=== PATIENT | male | born 1945 | race Caucasian/White ===

== ENCOUNTER 2018-02-15 08:11 | Observation (INO) | payer MEDICARE, OTHER, SELFPAY ==
[2018-02-15] VITALS (14 sets, daily range): BP systolic 138–183; BP diastolic 61–77; PULSE 53–69; RESP 15–20; TEMP 36.2–36.8; O2SAT 95–100; BMI 28.8; BMI 28.5; BMI 28.6
--- NOTE | 2018-02-15 08:22 | EKG12_ITS ---
Test Reason : CP Blood Pressure : / mmHG Vent. Rate : 064 BPM Atrial Rate : 064 BPM P-R Int : 224 ms QRS Dur : 122 ms QT Int : 396 ms P-R-T Axes : 001 -61 -10 degrees QTc Int : 408 ms Sinus rhythm with 1st degree A-V block Left axis deviation Left bundle branch block Abnormal ECG Confirmed by JOSTIN COLEMAN, REBECA ([id number]), acquisition editor ENOCH WALLER ([id number]) on 02/21/2018 2:33:03 PM Referred By: IMAN Confirmed By:REBECA FRANKEL MD
--- NOTE | 2018-02-15 08:36 | ED.DCSUM_ITS ---
- ER Visit Summary Date of Service: 02/15/18 Chief Complaint: Chest pain History of Present Illness: The patient is a [address] Patricio. He reports that he has chest pain that began 4 days ago while he was going faster than usual on the treadmill. States that it resolved approximately 2 minutes of rest. This was associated with nausea and shortness of breath. States that worst the pain was 5 out of 10 severity and that he is pain-free currently. Patient reports that since that time he is having pain multiple times per day. This does not seem to be related to exertion. It is relieved by nothing. States that he continues to feel nauseated and short of breath with these episodes. He also feels lightheaded and clammy. He also complains of generalized weakness. Patient reports that he had a heart catheterization approximately 10 years ago that did not require stents. He states that he had a stress test approximately 3 years ago. Physical Examination: Vitals: Stable. Afebrile. General: Well-nourished and well-developed. Head: Normocephalic atraumatic. Neck: Supple, no lymphadenopathy. No JVD. Nontender. Cardiovascular: Regular rate and rhythm. No murmurs. Respiratory: No respiratory distress. Clear to auscultation bilaterally. Abdominal: Soft, nontender, nondistended, normal bowel sounds. No guarding, rebound, or peritoneal signs. Back: Nontender. Extremities: Nontender, no edema. Skin: Normal color, no rash. Neurologic: Alert and oriented ?3. Cranial nerves II through XII are intact. Normal strength and sensation. Psych: Normal affect. Test Results: EKG is sinus at 64 with a first-degree AV block and a left bundle branch block. This is unchanged since June 10, 2017. CBC is normal. Chem-7 is remarkable for a glucose of 110. Troponin is negative. CTA chest shows no PE or dissection. Repeat EKG shows T-wave inversions in leads V5 and V6 that are a change from his prior EKG here. Emergency Department Course and Treatment: Patient had an IV placed. He was given aspirin p.o. and a liter of normal saline. He is resting comfortably. He has had no chest pain while here. Treatment Plan: The patient will be discussed with the hospitalist and admitted for further evaluation and treatment. Disposition: Admitted in stable condition. Impression: 1. Chest pain. 2. JOYCE score of 3. This note was generated with [employer] dictation software. It may contain incorrect words, spelling, and punctuation that were not noted in review of the chart prior to signing ED Disposition - Plan for ED Patient: Chief Complaint: Chest Pain Referrals: Reilly Yan MD [Primary Care Provider] -
--- NOTE | 2018-02-15 08:36 | EKG12_ITS ---
Test Reason : REPEAT CP Blood Pressure : / mmHG Vent. Rate : 056 BPM Atrial Rate : 056 BPM P-R Int : 224 ms QRS Dur : 120 ms QT Int : 426 ms P-R-T Axes : 003 -59 -30 degrees QTc Int : 411 ms Sinus bradycardia with 1st degree A-V block Left axis deviation Incomplete left bundle branch block T wave abnormality, consider lateral ischemia Abnormal ECG Confirmed by JOSTIN COLEMAN, REBECA ([id number]), web editor ENOCH WALLER ([id number]) on 02/21/2018 2:33:21 PM Referred By: IMAN Confirmed By:REBECA FRANKEL MD
--- NOTE | 2018-02-15 08:40 | RAD_ITS ---
STUDY: X-RAY CHEST REASON FOR EXAM: Male, 72 years old. Chest pain. TECHNIQUE: Single AP portable view of the chest. COMPARISON: Comparison is made with prior study dated September 08, 2013. FINDINGS: EKG electrodes are seen. Mild increased markings at the lung bases suggest some mild bibasilar atelectasis. There is no demonstrated pleural abnormality. There is mild cardiac enlargement. Normal mediastinum and jonny. Normal visualized pulmonary arteries. Normal visualized aortic arch and descending thoracic aorta. There are diffuse degenerative changes of the visualized thoracic spine. Normal visualized ribs, clavicles, and shoulders. There is no demonstrated abnormality of the visualized soft tissue structures of the upper abdomen. RAD/Chest 1 View (Portable) IMPRESSION: Mild increased markings at the lung bases suggest some mild bibasilar atelectasis. Electronically Signed: Guru Liu MD at 9:01 EDT Tel [phone], Service support ,
[2018-02-15] MEDS: Aspirin 81 MG TAB.CHEW 324 MG PO (08:46)
[2018-02-15] MEDS: 0.9% Normal Saline 1,000 ML 1000 ML IV (08:46)
[2018-02-15 08:49] LABS: Absolute Lymphocyte Count 1.23 X10^3/ul (0.83-4.51); Absolute Neutrophil Count 3.1 X10^3/uL (2.0-7.7); Basophil# 0.02 X10^3/uL; Basophil% 0.4 % (0-1); Eosinophil# 0.15 X10^3/uL; Hematocrit 44.8 % (40-54); Lymphocyte # 1.23 X10^3/ul (4.0); Lymphocyte % 24.6 % (19-41); Mean Corp Hgb Conc 33.5 g/gl (32-36); Mean Corpuscular Hgb 30.9 pg (27.0-32.0); Mean Corpuscular Volume 92.4 fL (80-94); Mean Platelet Vol. 10.4 fl (6.2-12.0); Monocyte# 0.49 X10^3/uL; Monocyte% 9.8 % (0-10); Neutrophil % 62.2 % (47-70); POSITIVE COUNT NO; POSITIVE DIFFERENTIAL NO; POSITIVE MORPHOLOGY NO; Platelet Count 164 K/mm3 (150-450); RBC Distribution Width CV 13.3 % (11.6-14.6); RBC Distribution Width SD 44.3 fl (35.1-43.9); Red Blood Count 4.85 M/mm3 (4.6-6.2)
[2018-02-15 08:57] LABS: Anion Gap 6 (5-15); BUN 12 mg/dL (7-18); BUN/Creat Ratio 10.6 RATIO (10-20); Chloride 106 mmol/L (98-107); Creatinine, Serum 1.13 mg/dL (0.70-1.30); EST Glomerular Filtration Rate 68 mL/min (>60); Est Glom Filt Rate - Afr Amer 82 mL/min (>60); Estimated Creatinine Clearance 58.01 ml/min; Glucose 110 mg/dL (74-106); Potassium 3.7 mmol/L (3.5-5.1); Sodium Level 141 mmol/L (136-145)
--- NOTE | 2018-02-15 09:00 | CT_ITS ---
STUDY: CTA CHEST REASON FOR EXAM: Male, 72 years old. Chest pain. Left arm pain. Nausea. Hypertension. RADIATION DOSAGE (If Supplied By Facility): CTDIvol = ( 15.93 ) mGy, DLP = ( 639.42 ) mGycm TECHNIQUE: The examination was performed with the intravenous administration of 75 ml of Isovue 370 contrast material. Post-processing of the angiographic images was performed, with multiplanar reformation and 3D reconstruction. Individualized dose optimization techniques were used for this CT. COMPARISON: Comparison is made with prior chest radiograph done earlier today. FINDINGS: Normal enhancement of the main pulmonary artery and right and left pulmonary arteries. Normal enhancement of the bilateral peripheral pulmonary arteries. There is no demonstrated pulmonary embolism. There is atherosclerotic calcification of the aortic arch with tortuosity. There is no evidence of dissection. There is no demonstrated aortic dissection. Normal heart and pericardium. Normal mediastinum. Normal hilar regions. Normal visualized trachea and bronchi. The lungs are well expanded. Mild degree of increased markings at the lung bases suggestive of scarring and/or atelectasis. No focal infiltrate is seen. Normal pleura. Normal chest wall structures. There are degenerative changes of thoracic spine. There is a 1 cm hypodensity in the inferior aspect of the right lobe of the liver suggestive of a small cyst. This is also evidence of a similar appearing hypodensity in the medial aspect of the right lobe of the liver measuring 2.2 sides by 1.6 cm suggestive of a hepatic cyst. There is calcification of the splenic artery. Small hiatal hernia. CT/CTA Chest W/WO Contrast IMPRESSION: There is no evidence of aortic dissection. Findings suggestive mild scarring at the lung bases. Hepatic cysts. Electronically Signed: Guru Liu MD at 10:06 EDT Tel [phone], Service support ,
--- NOTE | 2018-02-15 10:37 | NURSING ---
116 OBS CP MAYANK
--- NOTE | 2018-02-15 13:40 | HP.PCM_ITS ---
Problem List (1) Hyperlipidemia Status: Chronic (2) GERD (gastroesophageal reflux disease) Status: Chronic (3) History of stroke Status: Chronic (4) Hypertension Status: Chronic History of Present Illness Date of Admission: 02/15/18 Chief Complaint: Chest pain The patient is a 72 year old M with past medical history of essential hypertension, GERD, dyslipidemia and diabetes type 2 who presented to the emergency room to be evaluated for chest pain. He reports working on his treadmill about 4 days ago and when he went faster he did experience chest pain associated with nausea and shortness of breath as well as dizziness and he stopped. Ever since he has been having intermittent chest pain which he rated as 5 out of 10 associated with dizziness and shortness of breath. He came to the emergency room to be evaluated. His workup thus far is unremarkable we are placing him in the hospital for further management. Past Medical History Past Medical History (Chronic Problems): Chronic Problems (Last Updated 01/08/18 @ 12:46 by Lolis Salas) Hyperlipidemia (Chronic) GERD (gastroesophageal reflux disease) (Chronic) History of stroke (Chronic) Hypertension (Chronic) Allergies No Known Allergies Allergy (Verified 02/15/18 08:11) Home Medications: Ambulatory Orders Medication Instructions Recorded Aspirin [Aspirin, Baby] 81 mg PO DAILY@0800 09/08/13 Atorvastatin Calcium [Lipitor] 40 mg PO QHS 09/08/13 Fluticasone 0.05% [Flonase Nasal 1 spray NASAL PRN PRN 09/08/13 [place]] Loratadine [Claritin] 10 mg PO DAILY PRN 09/08/13 Metoprolol Tartrate [Lopressor 25 mg PO BID 09/08/13 (beta leilani)] [place]-3 Fatty Acids/Fish Oil [Fish 2 ea PO DAILY 09/08/13 Oil 1,000 mg Capsule] Omeprazole [Prilosec] 20 mg PO DAILY 09/08/13 ascorbic acid (vitamin C) 500 mg 500 mg PO DAILY 01/08/18 capsule metformin ER 500 mg 500 mg PO DAILY 90 Days #90 01/08/18 tablet,extended release 24 hr Albuterol Sulfate [Ventolin Hfa] 2 puff INHALATION Q6H PRN 02/15/18 Cholecalciferol (Vitamin D3) 1,000 unit PO QHS 02/15/18 [Vitamin D3] Sildenafil Citrate 100 mg PRN 02/15/18 Surgical History: - - Heart cath Psychiatric History: No pertinent psych hx Smoking Status: Never smoker Review of Systems Comment: All Systems were reviewed with pertinent positives mentioned in the HPI above. VTE Information - Inpt Only VTE Present on Admission: No VTE Mechan Device Prophylaxis: SCD's VTE Pharm Prophylaxis ordered?: Yes - Physical Exam General: Alert, Oriented x3 HEENT: Atraumatic Neck: Supple, No JVD Lungs: Clear to auscultation, No wheeze, No rales Cardiovascular: Regular rate, Regular Rhythm Abdomen: Bowel Sounds Present, Non-Distended Extremities: No cyanosis Musculoskeletal: No Tenderness to Palpation of Joints or Extremities, No Muscle Wasting Neurological: Cranial nerves II-XII grossly intact, Motor Exam 5/5 strength throughout Vital Signs Temp Pulse Resp BP Pulse Ox 98.1 F 55 L 16 167/63 H 99 02/15/18 11:50 02/15/18 11:54 02/15/18 11:50 02/15/18 11:50 02/15/18 11:50 Oxygen Flow Rate (L/min) 2 Oxygen Delivery Method Nasal Cannula Weight: 85.3 kg Body Mass Index (BMI) 28.5 Laboratory Tests Past 24 Hrs 02/15/18 13:00 Troponin I Pending Assessment/Plan 1. Chest pain; we will obtain serial cardiac enzymes and EKGs to rule out acute coronary syndrome, immune negative cardiac enzymes, he will be scheduled for a stress test in the morning . 2. Dyslipidemia; will continue on his statin. 3. DM Type II; we will hold off on metformin and place him on regular insulin sliding scale. 4. SCDs and early ambulation for DVT prophylaxis. Code Visit OBSV E&M: 29826 Initial observation care L2
[2018-02-15] MEDS: Aspirin 81 MG TAB.CHEW PO (14:31)
[2018-02-15] MEDS: Ascorbic Acid 500 MG Tablet PO (14:31)
[2018-02-15] MEDS: Metoprolol Tartrate 25 MG Tablet PO ×2 (14:31→22:26)
[2018-02-15] MEDS: Pantoprazole Sodium 20 MG Tablet PO (14:32)
[2018-02-15] MEDS: CLARIFY ORDER NOTE (14:33)
--- NOTE | 2018-02-15 14:58 | CHAPLAIN ---
Type of Pastoral Visit _x__ Initial Visit ___ Follow-up Visit ___ On-call Visit ___ General Patient Visit ___ Spiritual Assessment ___ Family Conference ___ Bereavement ___ Rapid Response ___ Code Blue ___ Other (describe below) Pastoral Care Referral From _x__ Patient ___ Family ___ Nurse ___ Physician ___ Rn On Site ___ Hand Tufter ___ Other (describe below) Sacrament/Intervention _x__ Active listening ___ Anointing ___ Congregation ___ Bereavement ___ Communion ___ Mindi exploration ___ ___ Life review _x__ Prayer ___ Reconciliation ___ Sacrament of Sick _x__ Supportive presence ___ Wedding ___ Other (describe below) Pastoral Comments
[2018-02-15] MEDS: Atorvastatin Calcium 40 MG Tablet PO (22:30)
[2018-02-16 03:09] VITALS: PULSE 60
--- NOTE | 2018-02-16 04:00 | EKG12_ITS ---
Test Reason : INVERTED T WAVE Blood Pressure : / mmHG Vent. Rate : 060 BPM Atrial Rate : 060 BPM P-R Int : 216 ms QRS Dur : 112 ms QT Int : 408 ms P-R-T Axes : 038 -63 -21 degrees QTc Int : 408 ms Sinus rhythm with 1st degree A-V block Left axis deviation Incomplete left bundle branch block Nonspecific ST and T wave abnormality Abnormal ECG When compared with ECG of 16-FEB-2018 05:05, MANUAL COMPARISON REQUIRED, DATA IS UNCONFIRMED Confirmed by JOSTIN COLEMAN, REBECA ([id number]), film editor supervisor ENOCH WALLER ([id number]) on 02/22/2018 9:18:14 AM Referred By: MAYANK Confirmed By:REBECA FRANKEL MD
[2018-02-16 04:03] LABS: Hematocrit 39.9 % (40-54); Hemoglobin 13.7 g/dl (13.0-16.5); Mean Corp Hgb Conc 34.3 g/gl (32-36); Mean Corpuscular Hgb 31.4 pg (27.0-32.0); Mean Corpuscular Volume 91.5 fL (80-94); Mean Platelet Vol. 10.6 fl (6.2-12.0); Platelet Count 164 K/mm3 (150-450); RBC Distribution Width CV 13.1 % (11.6-14.6); RBC Distribution Width SD 42.6 fl (35.1-43.9); Red Blood Count 4.36 M/mm3 (4.6-6.2); White Blood Count 6.1 K/mm3 (4.4-11.0)
[2018-02-16 04:05] LABS: International Normalized Ratio 1.2; Prothrombin Time (Protime)PT. 14.9 SECONDS (11.7-14.9)
[2018-02-16 04:06] LABS: Partial Thromboplast Time 27.8 Seconds (24.1-36.2)
[2018-02-16 04:08] LABS: Scan Indicated on CBC? Y/N NO
[2018-02-16 04:12] LABS: Albumin, Serum 2.9 g/dL (3.2-5.0); BUN 18 mg/dL (7-18); Creatinine, Serum 1.06 mg/dL (0.70-1.30); EST Glomerular Filtration Rate 73 mL/min (>60); Est Glom Filt Rate - Afr Amer 89 mL/min (>60); Estimated Creatinine Clearance 61.84 ml/min; Glucose 92 mg/dL (74-106); Protein, Total 5.9 g/dL (6.4-8.2)
[2018-02-16 04:13] LABS: AST(SGOT) 23 U/L (15-37); Alanine Aminotransfer ALT/SGPT 31 U/L (16-61); Alkaline Phosphatase 77 U/L (45-117); Anion Gap 9 (5-15); Calcium,Total 8.3 mg/dL (8.5-10.1); Chloride 109 mmol/L (98-107); Cholesterol 109 mg/dL (200); High Density Lipoprotein 44 mg/dL; Potassium 4.1 mmol/L (3.5-5.1); Sodium Level 143 mmol/L (136-145); Triglycerides 116 mg/dL; Very Low Density Lipoprotein 23 mg/dL (5-40)
[2018-02-16 04:23] VITALS: BP 142/64; PULSE 62; RESP 18; TEMP 36.9; O2SAT 93
[2018-02-16] MEDS: Aspirin 81 MG TAB.CHEW PO (06:03)
[2018-02-16 08:21] VITALS: PULSE 62
[2018-02-16] MEDS: Ascorbic Acid 500 MG Tablet PO (08:43)
[2018-02-16 08:44] VITALS: PULSE 62
[2018-02-16] MEDS: Metoprolol Tartrate 25 MG Tablet PO (08:44)
[2018-02-16] MEDS: Pantoprazole Sodium 20 MG Tablet PO (08:44)
[2018-02-16 08:45] VITALS: BP 162/66; PULSE 62; RESP 12; TEMP 36.6; O2SAT 96
--- NOTE | 2018-02-16 08:52 | EKG12_ITS ---
Test Reason : MORNING EKG Blood Pressure : / mmHG Vent. Rate : 061 BPM Atrial Rate : 061 BPM P-R Int : 230 ms QRS Dur : 108 ms QT Int : 420 ms P-R-T Axes : 027 -66 -17 degrees QTc Int : 422 ms Sinus rhythm with 1st degree A-V block Left axis deviation Septal infarct , age undetermined Abnormal ECG When compared with ECG of 15-FEB-2018 09:09, MANUAL COMPARISON REQUIRED, DATA IS UNCONFIRMED Confirmed by JOSTNI COLEMAN, REBECA ([id number]), material expeditor ENOCH WALLER ([id number]) on 02/22/2018 9:19:40 AM Referred By: MAYANK Confirmed By:REBECA FRANKEL MD
--- NOTE | 2018-02-16 08:59 | STRESSREP ---
Stress Test Report Pharmacologic myocardial perfusion stress test. 72-year-old man with a history of chest pain. Medications metoprolol Protonix Lipitor. Stress protocol: Resting EKG demonstrates sinus rhythm with a rate of 60 bpm normal intervals are noted. Resting blood pressure is 148/78 mmHg. 0.4 mg of regadenoson was infused per usual protocol followed by rapid intravenous saline flush injection. Continuous EKG monitoring was performed. The maximum heart rate was 102 bpm which was 68% of maximum predicted heart rate the maximum workload attained was 1 metabolic equivalent. At rest there were no ST or T-wave changes noted suggest abnormal flow reserve at peak infusion no ST or T-wave changes were noted to suggest abnormal flow reserve. Myocardial perfusion protocol. 11.9 mCi of technetium 99m sestamibi was injected at rest. 0.4 mg of regadenoson was infused per usual protocol. Peak infusion 35.0 mCi of technetium 99m sestamibi was injected. Stress images were obtained stress and rest images were reconstructed and compared in the short axis vertical long and horizontal long axis. Gated images were also obtained. Perfusion SPECT analysis: Review of the stress images demonstrate normal uptake of tracer noted in the septum anterior wall and lateral wall. There is a perfusion defect noted involving the inferior wall on the stress and resting images. This appears to be at the same extent. Mild apical thinning is also noted. There is some GI attenuation artifact also present. Gated SPECT analysis. The gated ejection fraction is noted to be 67%. Conclusion: Pharmacologic myocardial perfusion stress test with no evidence of ischemia. GI attenuation or previous inferior infarct cannot be completely excluded. Preserved ejection fraction.
--- NOTE | 2018-02-16 09:13 | PCM.DC ---
- Discharge Diagnoses Current Active Problems: chest pain, non cardiac You will use the following diet at home:: Regular Discharge Activity: Return to Normal Activity Allergies/Adverse Reactions: Allergies No Known Allergies Allergy (Verified 02/15/18 08:11) Medications to take at Discharge Aspirin [Aspirin, Baby] 81 mg PO DAILY@0800 09/08/13 Atorvastatin Calcium [Lipitor] 40 mg PO QHS 09/08/13 Fluticasone 0.05% [Flonase Nasal [place]] 1 spray NASAL DAILY PRN PRN 09/08/13 Loratadine [Claritin] 10 mg PO DAILY PRN 09/08/13 Metoprolol Tartrate [Lopressor (beta leilani)] 25 mg PO BID 09/08/13 [place]-3 Fatty Acids/Fish Oil [Fish Oil 1,000 mg Capsule] 2 ea PO DAILY 09/08/13 Omeprazole [Prilosec] 20 mg PO DAILY 09/08/13 ascorbic acid (vitamin C) 500 mg capsule 500 mg PO DAILY 01/08/18 metformin ER 500 mg tablet,extended release 24 hr 500 mg PO DAILY 90 Days #90 01/08/18 Albuterol Sulfate [Ventolin Hfa] 2 puff INHALATION Q6H PRN 02/15/18 Cholecalciferol (Vitamin D3) [Vitamin D3] 1,000 unit PO QHS 02/15/18 Sildenafil Citrate 100 mg PRN 02/15/18 Primary Care Physician: Reilly Yan MD [Primary Care Provider] - Proposed Discharge Date: 02/16/18
--- NOTE | 2018-02-16 09:14 | PCM.DC.SUM ---
Discharge Date and Diagnosis Date of Admission: 02/15/18 Date of Discharge: 02/16/18 - Secondary Discharge Diagnosis Chronic Problems (Last Updated 01/08/18 @ 12:46 by Lolis Salas) Hyperlipidemia (Chronic) GERD (gastroesophageal reflux disease) (Chronic) History of stroke (Chronic) Hypertension (Chronic) Hospital Course and Treatment Imaging Results: 02/16/18 05:55 Nuclear Stress Test - Chemical [NM] AM (NON MEDS) Summary of Care Provided: The patient is a 72 year old M with past medical history of essential hypertension, GERD, dyslipidemia and diabetes type 2 who presented to the emergency room to be evaluated for chest pain. He reports working on his treadmill about 4 days ago and when he went faster he did experience chest pain associated with nausea and shortness of breath as well as dizziness and he stopped. Ever since he has been having intermittent chest pain which he rated as 5 out of 10 associated with dizziness and shortness of breath. He came to the emergency room to be evaluated. She was placed in the PCU and rule out acute coronary syndrome with negative cardiac enzymes. He underwent a stress test that was negative for ischemia. Blood pressure remains slightly elevated and lisinopril was added at 5 mg to optimize control. He was discharged home in a stable condition. Discharge Diet: No Restrictions Discharge Activity: Return to Normal Activity Home Medications: Medications to take at Discharge Aspirin [Aspirin, Baby] 81 mg PO DAILY@0800 09/08/13 Atorvastatin Calcium [Lipitor] 40 mg PO QHS 09/08/13 Fluticasone 0.05% [Flonase Nasal [place]] 1 spray NASAL DAILY PRN PRN 09/08/13 Loratadine [Claritin] 10 mg PO DAILY PRN 09/08/13 Metoprolol Tartrate [Lopressor (beta leilani)] 25 mg PO BID 09/08/13 [place]-3 Fatty Acids/Fish Oil [Fish Oil 1,000 mg Capsule] 2 ea PO DAILY 09/08/13 Omeprazole [Prilosec] 20 mg PO DAILY 09/08/13 ascorbic acid (vitamin C) 500 mg capsule 500 mg PO DAILY 01/08/18 metformin ER 500 mg tablet,extended release 24 hr 500 mg PO DAILY 90 Days #90 01/08/18 Albuterol Sulfate [Ventolin Hfa] 2 puff INHALATION Q6H PRN 02/15/18 Cholecalciferol (Vitamin D3) [Vitamin D3] 1,000 unit PO QHS 02/15/18 Sildenafil Citrate 100 mg PRN 02/15/18 Primary Care Physician: Reilly Yan MD [Primary Care Provider] - Medical Necessity - Tobacco Use Smoking Status: Never smoker Meaningful Use Info Meaningful Use Diagnoses (Choose all that apply): None applicable Code Visit OBSV E&M: 91688 Observation care discharge
== END 2018-02-16 09:50 | disposition home or self-care (01) ==
LOC: ED 08:44 → PCU 10:46
PROVIDERS: Admitting Provider Internal Medicine; Emergency Provider Emergency Medicine; Family Provider Family Medicine; PCP Family Medicine; Visit Provider Internal Medicine
DX: R07.89 Other chest pain (principal); I10 Essential (primary) hypertension; K21.9 Gastro-esophageal reflux disease without esophagitis; E78.5 Hyperlipidemia, unspecified; Z86.73 Personal history of transient ischemic attack (TIA), and cerebral infarction without residual deficits; E11.9 Type 2 diabetes mellitus without complications; R06.02 Shortness of breath; R11.0 Nausea; R42 Dizziness and giddiness; Z79.899 Other long term (current) drug therapy; Z79.82 Long term (current) use of aspirin
CPT/HCPCS: 36415; 71045; 71275; 78452; 80048; 80053; 80061; 84484; 85025; 85027; 85610; 85730; 93005; 93017; 96360; 96361; 99218; 99285; A9500; Q9967; A4216; G0378; J2785

== ENCOUNTER 2020-01-04 22:03 | Emergency (ER) | payer MEDICARE, OTHER, SELFPAY ==
[2020-01-04 22:05] VITALS: BP 211/84; PULSE 61; RESP 16; TEMP 36.8; O2SAT 100; BMI 28.1
--- NOTE | 2020-01-04 22:37 | EKG12_ITS ---
Test Reason : HYPERTENSION Blood Pressure : / mmHG Vent. Rate : 055 BPM Atrial Rate : 055 BPM P-R Int : 204 ms QRS Dur : 120 ms QT Int : 422 ms P-R-T Axes : 015 -55 -22 degrees QTc Int : 403 ms Sinus bradycardia Left axis deviation Incomplete left bundle branch block Abnormal ECG Confirmed by KYLE COLEMAN, NATY ([id number]), editor department CAROLYN YEBOAH ([id number]) on 01/08/2020 2:22:10 PM Referred By: JOSE Confirmed By:BRITTANI WRIGHT MD
--- NOTE | 2020-01-04 22:37 | ED.VIS.GEN ---
History of Present Illness Chief Complaint: Hypertension Informant: Patient Onset: Days Narrative: Patient presents with hypertension for the past couple of days. He states his is been having trouble with high blood pressure and her pressure was reading high on their home monitor. He decided to use the home monitor to check his own blood pressure to see if the machine was working correctly and his systolic blood pressures been reading over 200 for the past 2 days. He states he was at his doctor's office about 3 weeks ago and had a blood pressure reading of 132 systolic. Patient denies any complaints. He states the only medication change recently was a change of Prilosec to famotidine. He is currently lisinopril 5 mg a day and metoprolol 25 mg twice daily. - Past Medical History (1) GERD (gastroesophageal reflux disease) Status: Chronic (2) History of stroke Status: Chronic (3) Hyperlipidemia Status: Chronic (4) Hypertension Status: Chronic Past Medical History - Allergies and Home Meds Allergies/Adverse Reactions: Allergies No Known Allergies Allergy (Verified 01/04/20 22:06) Primary Care Physician: Reilly Yan MD [Primary Care Provider] - 5-7 Days Prior records reviewed: Yes Surgical History: - - Heart cath Lives: Spouse/ Significant Other Smoking Status: Never smoker Review of Systems General: Denies: Chills, Fever Eyes: Denies: Visual changes - bilaterally ENT: Denies: Bilateral ear pain Cardiovascular: Denies: Chest pain, Palpitations Respiratory: Denies: Dyspnea Gastrointestinal: Denies: Abdominal pain, Nausea, Vomiting, Diarrhea Genitourinary: Denies: Dysuria Musculoskeletal: Denies: Extremity Pain Skin: Denies: Rash Neurological: Denies: Headache Hematologic: Denies: Easy bruising Allergy: Denies: Uticaria Physical Exam Vital Signs/Narrative: Vital Signs Temp Pulse Resp BP Pulse Ox 01/04/20 22:05 98.2 F 61 16 211/84 H 100 Inital Vital Signs reviewed: Yes General: Well nourished, Well developed Head: Normocephalic ENT: Moist mucous membranes Neck: Supple Cardiovascular: Regular rhythm, Bradycardia Respiratory: No distress, CTA bilaterally Abdomen: Soft, Nontender Extremities: Nontender Skin: Normal color, No rash Neurological: Alert, Oriented x3 Psychological: Normal affect Diagnostic/Tx/Re-eval Impressions Chest X-Ray 01/04/20 22:45 IMPRESSION: No acute cardiopulmonary disease perceived. at 2257 Reported and signed by: Jese Chamberlain MD Electronically Signed: Jese Chamberlain MD at 22:56 EST Tel , Service support , 01/04/20 22:45 Chest 1 View (Portable) [RAD] Stat Laboratory Results 01/04/20 01/04/20 01/04/20 23:00 23:00 23:30 WBC 5.7 RBC 4.54 L Hgb 14.1 Hct 41.9 MCV 92.3 MCH 31.1 MCHC 33.7 RDW Std Deviation 42.3 RDW Coeff of [place] 12.5 Plt Count 144 L MPV 10.2 Immature Gran % (Auto) 0.400 Neut % (Auto) 54.9 Lymph % (Auto) 27.0 [place] % (Auto) 13.3 H Eos % (Auto) 3.7 Baso % (Auto) 0.7 Absolute Neuts (auto) 3.1 Absolute Lymphs (auto) 1.53 Nucleated RBC % 0 Sodium 140 Potassium 4.5 Chloride 105 Carbon Dioxide 31.0 Anion Gap 4 L BUN 17 Creatinine 1.21 Estim Creat Clear Calc 52.60 Est GFR (MDRD) Af Amer 76 Est GFR (MDRD) Non-Af 62 BUN/Creatinine Ratio 14.0 Glucose 106 Calcium 9.3 Urine Color Yellow Urine Clarity Clear Urine pH 7.0 Ur Specific [place] 1.005 Urine Protein Negative Urine Glucose (UA) Normal Urine Ketones Negative Urine Occult Blood Negative Urine Nitrite Negative Urine Bilirubin Negative Urine Urobilinogen Normal Ur Leukocyte Esterase Negative Urine RBC 0-5 SEEN Urine WBC 0 SEEN Ur Squamous Epith Cells 0 SEEN Urine Bacteria 0 SEEN Urine Mucus 0 SEEN - EKG Initial EKG Interpretation: Sinus Bradycardia - Sinus bradycardia 55 bpm. Incomplete left bundle branch block noted. - Medical Decision Making Patient was observed on equipment monitor phototypesetting. At the time of my initial evaluation his blood pressure was 169/79. Systolic blood pressures have ranged from this 169 up to 193 while observed in the emergency room. His systolic pressure is currently 177. Patient is on a pretty low dose of lisinopril and metoprolol. Because he is already bradycardic I do not want to change his metoprolol. I encouraged him to double his lisinopril dose to 10 mg a day. He will be given his extra 5 mg here tonight and then tomorrow morning will start new dose. I encouraged him to keep a journal of his blood pressures and time of day that it is checked. He is to follow-up with his doctor next week with this journal to further evaluate if additional changes need to be made. ED Disposition - Plan for ED Patient: Disposition: Home or Assisted Living Diagnosis: Hypertension Instructions: HYPERTENSION, Established Referrals: Reilly Yan MD [Primary Care Provider] - 5-7 Days Additional Instructions: Increase your Lisinopril to 10mg daily (instead of your current 5mg). Keep a journal of your blood pressure readings as discussed and take this to your doctor next week.
--- NOTE | 2020-01-04 22:45 | RAD_ITS ---
HISTORY: patient being seen for high BP EXAM: XR Chest 1 View: COMPARISON: February 15, 2018 FINDINGS: # of images incl. paperwork: 1 Lungs are clear. Heart is not enlarged. Mild thoracic spondylosis. Chronic right shoulder arthritis. Pulmonary vascularity is distinct. No effusions. RAD/Chest 1 View (Portable) IMPRESSION: No acute cardiopulmonary disease perceived. at 2257 Reported and signed by: Jese Chamberlain MD Electronically Signed: Jese Chamberlain MD at 22:56 EST Tel , Service support ,
[2020-01-04 23:06] LABS: Absolute Lymphocyte Count 1.53 X10^3/uL (0.83-4.51); Absolute Neutrophil Count 3.1 X10^3/uL (2.0-7.7); Basophil# 0.04 X10^3/uL; Basophil% 0.7 % (0-1); Eosinophil# 0.21 X10^3/uL; Eosinophils% 3.7 % (0-5); Hematocrit 41.9 % (40-54); Hemoglobin 14.1 g/dL (13.0-16.5); Lymphocyte # 1.53 X10^3/ul (4.0); Mean Corp Hgb Conc 33.7 g/dL (32-36); Mean Corpuscular Hgb 31.1 pg (27.0-32.0); Mean Corpuscular Volume 92.3 fL (80-94); Mean Platelet Vol. 10.2 fl (6.2-12.0); Monocyte# 0.75 X10^3/uL; Monocyte% 13.3 % (0-10); NRBC Flagged by Analyzer 0 % (0-5); Neutrophil # 3.11 X10^3/uL (2.7-7.7); Neutrophil % 54.9 % (47-70); Platelet Count 144 K/mm3 (150-450); RBC Distribution Width CV 12.5 % (11.6-14.6); RBC Distribution Width SD 42.3 fl (35.1-43.9); Red Blood Count 4.54 M/mm3 (4.6-6.2); White Blood Count 5.7 K/mm3 (4.4-11.0)
[2020-01-04 23:30] LABS: Anion Gap 4 (5-15); BUN 17 mg/dL (7-18); Calcium,Total 9.3 mg/dL (8.5-10.1); Chloride 105 mmol/L (98-107); Creatinine, Serum 1.21 mg/dL (0.70-1.30); EST Glomerular Filtration Rate 62 mL/min (>60); Est Glom Filt Rate - Afr Amer 76 mL/min (>60); Glucose 106 mg/dL (74-106); Potassium 4.5 mmol/L (3.5-5.1); Sodium Level 140 mmol/L (136-145)
[2020-01-04 23:39] VITALS: BP 193/63; PULSE 58; RESP 16; O2SAT 98
[2020-01-04 23:40] LABS: Bacteria 0 SEEN /hpf (None Seen); Color, Urine Yellow (Yellow); Glucose, Dipstick Normal (Normal); Ketone-Dipstick Negative (Negative); Leukocyte Esterase-Dipstick Negative /ul (Negative); Mucous, Urine 0 SEEN /hpf (<or=2+); Nitrite-Dipstick Negative (Negative); Occult Blood-Urine Negative /ul (Negative); Protein-Dipstick Negative (Negative); Specific Gravity, Urine 1.005 (1.002-1.030); Squamous Epithelial Cells - UA 0 SEEN /hpf (0-5); Urine Bilirubin Dipstick Negative (Negative); Urine Clarity Clear (Clear); Urine Urobilinogen Normal (Normal); White Blood Cells 0 SEEN /hpf (0-5)
[2020-01-04 23:56] LABS: Red Blood Cells-Urine 0-5 SEEN /hpf (0-5)
[2020-01-05] MEDS: Lisinopril 5 MG Tablet PO (00:30)
[2020-01-05 00:31] VITALS: BP 177/74; PULSE 56; RESP 14; O2SAT 96
== END 2020-01-05 00:33 | disposition home or self-care (01) ==
PROVIDERS: Emergency Provider Emergency Medicine; PCP Family Medicine
DX: I10 Essential (primary) hypertension (principal); I44.7 Left bundle-branch block, unspecified; K21.9 Gastro-esophageal reflux disease without esophagitis; E78.5 Hyperlipidemia, unspecified; Z86.73 Personal history of transient ischemic attack (TIA), and cerebral infarction without residual deficits; Z79.82 Long term (current) use of aspirin; Z79.899 Other long term (current) drug therapy
CPT/HCPCS: 71045; 80048; 81001; 85025; 93005; 99285; A4216

== ENCOUNTER → 2020-10-30 09:28 | Outpatient (CLI) | payer MEDICARE, OTHER, SELFPAY ==
[2020-10-30 13:00] LABS: Anion Gap 6 (5-15); BUN 16 mg/dL (7-18); BUN/Creat Ratio 13.4 RATIO (10-20); Calcium,Total 9.3 mg/dL (8.5-10.1); Chloride 105 mmol/L (98-107); Creatinine, Serum 1.19 mg/dL (0.70-1.30); EST Glomerular Filtration Rate 64 mL/min (>60); Est Glom Filt Rate - Afr Amer 77 mL/min (>60); Glucose 107 mg/dL (74-106); Potassium 4.6 mmol/L (3.5-5.1); Sodium Level 139 mmol/L (136-145)
== END ==
PROVIDERS: PCP Family Medicine; Referring Provider Family Medicine; Visit Provider Family Medicine
DX: R73.01 Impaired fasting glucose (principal)
CPT/HCPCS: 36415; 80048

== ENCOUNTER 2021-01-16 17:24 | Outpatient (RCR) | payer MEDICARE, OTHER, SELFPAY ==
[2021-01-16] MEDS: COVID-19 VACC, MRNA(PFIZER)/PF 30 MCG/0.3 ML SYRINGE IM (10:26)
[2021-02-06] MEDS: COVID-19 VACC, MRNA(PFIZER)/PF 30 MCG/0.3 ML SYRINGE IM (10:17)
== END 2021-01-16 23:59 ==
LOC: IMMUN 17:24
PROVIDERS: PCP Family Medicine; Visit Provider Family Medicine
DX: Z23 Encounter for immunization (principal)
CPT/HCPCS: 0001A; 0002A

== ENCOUNTER 2021-05-27 06:18 | Day surgery (SDC) | payer MEDICARE, OTHER, SELFPAY ==
[2021-05-27] MEDS: Lactated Ringers 1,000 ML 100 ML IV (06:58)
[2021-05-27 07:05] VITALS: BP 147/44; PULSE 50; RESP 16; TEMP 36.5; O2SAT 99; BMI 26.0
--- NOTE | 2021-05-27 07:10 | H&P.OPEN ---
HPI - General HPI Narrative BECKI INFANTE, is a 75 M who presents for screening colonoscopy. Patient has last colonoscopy 10 years ago and it was normal. He denies any family history of colon cancer. He has no abdominal pain or blood in his stool. [facility] Medical History (Updated 05/27/21 @ 07:[address] Yehuda Blas MD) Anxiety Arthritis Back pain CPAP (continuous positive airway pressure) dependence Depression Diabetes Gastric reflux History of hiatal hernia Hypertension Knee pain Limb weakness Low iron Neck pain Non-smoker Seasonal allergies Shortness of breath Sleep apnea TIA (transient ischemic attack) Wears dentures Wears glasses Home Medications aspirin 81 mg PO DAILY@0800 09/08/13 [History Last Taken 02/14/18] atorvastatin 40 mg PO QHS 09/08/13 [History Last Taken 02/14/18] fluticasone propionate 1 spray NASAL DAILY PRN PRN 09/08/13 [History Last Taken 09/07/13 08:00] loratadine 10 mg PO DAILY PRN 09/08/13 [History Last Taken 06/10/17] metoprolol tartrate 25 mg PO BID 09/08/13 [History Last Taken 05/27/21 04:00] omega-3 fatty acids-fish oil 2 ea PO DAILY 09/08/13 [History Last Taken 02/14/18] omeprazole 20 mg PO QHS 09/08/13 [History Last Taken 02/14/18] ascorbic acid (vitamin C) 500 mg capsule 500 mg PO DAILY 01/08/18 [History Last Taken 02/14/18] metformin 500 mg tablet,extended release 24 hr 500 mg PO DAILY 90 Days #90 01/08/18 [History Last Taken 02/14/18] cholecalciferol (vitamin D3) [Vitamin D3] 1,000 unit PO QHS 02/15/18 [History Last Taken 02/14/18] escitalopram oxalate 10 mg PO DAILY 05/26/21 [History Last Taken Unknown] lisinopril 5 mg PO DAILY 05/26/21 [History Last Taken 05/27/21 04:00] Allergy/AdvReac Type Severity Reaction Status Date / Time No Known Allergies Allergy Verified 05/26/21 09:48 Surgical History (Updated 05/26/21 @ 10:06 by Kelly Do) History of hernia repair History of transurethral resection of prostate Social History (Updated 01/08/18 @ 13:05 by RAMYA Duffy) Smoking Status: Never smoker alcohol intake: never Past Medical/Surgical History Planned Operation Planned Operative Procedure/s: colonoscopy Previous Hospitalizations/Surgeries HX Hospitalizations: No HX of Surgeries: - UMBILICAL HERNIA - ROXANA INGUINAL HERNIA Any Problems With Anesthesia: No You/Your Family Experience Fever (Hyperthermia) With Anes: No Cholinesterase deficiency: No Cardiovascular Hx Chest Pain within Last 2 months: Yes Hx of Irregular Heartbeat and/or Afib: No Hx Heart Attack: No Hx Congestive Heart Failure: No Hx Rheumatic Fever: No Hx Hypertension: Yes Hx Internal Defibrillator: No Hx Pacemaker: No Hx Cardiac Catheterization: Yes What facility was last heart cath performed: unknown Date of last Heart Cath: unknown Hx Cardiac Surgery/Stents/Etc.: No Hx Stress Test: Yes Hx Pain in Legs when Walking/Leg Cramps: Yes (PT STATES HE HAS KNEE & JOINT PAINS) Respiratory Chronic Cough: No HX of Shortness of Breath: Yes (PT STATES ALOT OF SOB RECENTLY) Hoarseness: No Hx Chronic Obstructive Pulmonary Disease (COPD): No Hx Asthma: No Hx Emphysema: No Hx Sleep Apnea: Yes CPAP: Yes BIPAP: No Hx Respiratory Tract Infection/Cold (presently): No Result (for STOP score): Positive Hx Smoking: No Smoking Status: Never smoker Gastrointestinal Hx Gastroesophageal Reflux: Yes Controlled With Meds: Yes Hx Gastrointestinal Disorders: No Hx Gastrointestinal Bleed: No Hx Ulcer: No Special diet followed at home: Yes Hx Unplanned Weight Loss of 20#: No HX Unplanned Weight Gain of 20#: No Neurological Hx Seizures: No HX Syncope/Blackout Spells/Unconsciousness: No Hx Transient Ischemic Attacks (TIA): Yes Hx Multiple Sclerosis: No Hx Parkinson's Disease: No Hx Head/Neck Injury: No Hx Headaches: No Hx Back Injury/Pain: No Does patient have nerve stimulator: No Blood Disorder Hx Deep Vein Thrombosis: No Hx High Cholesterol: Yes Hx Hepatitis: No Hx Cirrhosis: No Hx Anemia: No Hx Blood Disorders: No Genitourinary Hx Renal Disease: No Hx Dialysis: No Musculoskeletal Hx Arthritis: Yes Hx Rheumatoid Arthritis: No Hx Gout: No Endocrine Hx Diabetes: Yes (borderline diabetic) Thyroid Disease: No Psycho/Social Hx Substance Use: No Hx Alcohol Use: No Hx Anxiety: Yes Hx Depression: Yes Mental Illness: No Hx Dementia: No Miscellaneous Hx Cancer: No Recent Exposure to Contagious Disease: No Hx of C-Diff: No Allergies No Known Allergies Allergy (Verified 05/26/21 09:48) Discharge Is Pt Admitted From a Assisted, or a Long-Term: No Who Could Help: After D/C, Where Do you Plan to Go: Return Home From the [facility] History Number of Risk Factors: 5 Vital Signs Vital Signs Vital Signs: Weight Body Mass Index (BMI) 28.1 Physical Exam Const alert and oriented x3 Resp normal respiratory effort and normal air movement Cardio regular rate and regular rhythm GI soft to palpation, non-tender and non-distended Assessment & Plan Assessment/Plan (1) Screen for colon cancer: PLAN: Patient here for screening colonoscopy. I explained endoscopy in detail to the patient. I explained the risks including but not limited to stroke or heart attack with anesthesia, perforation of the GI tract, bleeding, infection. I explained that any of these could necessitate further emergency surgery. The patient understands and all questions were answered sufficiently. The patient wishes to proceed with procedure. Yehuda Blas MD Pager: [facility] [address] [place] [address], [address] [place] [address] Office: Surgery Risks - Colonoscopy Risks Include but are not Limited To: Risks include but are not limited to: Bleeding, perforation requiring further surgery, inability to complete colonoscopy requiring barium enema.
[2021-05-27 07:30] LABS: Bedside Glucose 92 mg/dL (70-110)
--- NOTE | 2021-05-27 07:43 | OP.COLON_ITS ---
Patient Name: Michael Linda Procedure Date: 05/27/2021 7:11 AM Date of : 1945 Age: 75 Procedure: Colonoscopy Indications: Screening for colorectal malignant neoplasm Providers: Yehuda Blas MD Medicines: Monitored Anesthesia Care Patient Profile: This is a 75 year old male. Refer to note in patient chart for documentation of history and physical. Last Colonoscopy: 10 years ago. Complications: No immediate complications. Procedure: Pre-Anesthesia Assessment: - Prior to the procedure, a History and Physical was performed, and patient medications and allergies were reviewed. The patient's tolerance of previous anesthesia was also reviewed. The risks and benefits of the procedure and the sedation options and risks were discussed with the patient. All questions were answered, and informed consent was obtained. Prior Anticoagulants: The patient has taken no previous anticoagulant or antiplatelet agents. After reviewing the risks and benefits, the patient was deemed in satisfactory condition to undergo the procedure. After I obtained informed consent, the scope was passed under direct vision. Throughout the procedure, the patient's blood pressure, pulse, and oxygen saturations were monitored continuously. The Colonoscope was introduced through the anus and advanced to the cecum, identified by appendiceal orifice and ileocecal valve. The colonoscopy was performed without difficulty. The patient tolerated the procedure well. The quality of the bowel preparation was good. Scope In: 7:30:01 AM Scope Withdrawal Time 0 hours 6 minutes 7 seconds Scope Out: 7:39:38 AM Total Procedure Duration Time 0 hours 9 minutes 37 seconds Findings: Multiple small-mouthed diverticula were found in the entire colon. The exam was otherwise without abnormality on direct and retroflexion views. Impression: - Diverticulosis in the entire examined colon. - The examination was otherwise normal on direct and retroflexion views. - No specimens collected. Recommendation: - Discharge patient to home. - Resume previous diet. - Continue present medications. - Repeat colonoscopy is not recommended due to current age (66 years or older) for screening purposes. Procedure Code(s): --- Professional --- G0121, Colorectal cancer screening; colonoscopy on individual not meeting criteria for high risk Diagnosis Code(s): --- Professional --- Z12.11, Encounter for screening for malignant neoplasm of colon K57.30, Diverticulosis of large intestine without perforation or abscess without bleeding CPT copyright 2017 [employer]. All rights reserved. The codes documented in this report are preliminary and upon design tech review may be revised to meet current compliance requirements. Yehuda Blas MD 05/27/2021 7:43:06 AM This report has been signed electronically. Number of Addenda: 0 Note Initiated On: 05/27/2021 7:11 AM
--- NOTE | 2021-05-27 07:44 | OP.CCLET_ITS ---
05/27/2021 Reilly Yan [address] [place] [address] Re : Colonoscopy procedure for Michael Linda Dear Dr. Yan This procedure was performed on Thursday, May 27, 2021. My impressions and recommendations are as follows: Impressions : - Diverticulosis in the entire examined colon. - The examination was otherwise normal on direct and retroflexion views. - No specimens collected. Recommendations : - Discharge patient to home. - Resume previous diet. - Continue present medications. - Repeat colonoscopy is not recommended due to current age (66 years or older) for screening purposes. My findings are described in the full procedure note, which is enclosed. If I can be of further assistance, please feel free to contact me at Doctor phone number(s): , Work: . Sincerely, Yehuda Blas MD 05/27/2021 7:43:06 AM This report has been signed electronically.
[2021-05-27 07:45] VITALS: BP 108/55; BP 147/44; PULSE 68; RESP 16; TEMP 36; O2SAT 97
[2021-05-27 07:50] VITALS: BP 122/64; BP 147/44; PULSE 65; RESP 14; O2SAT 99
[2021-05-27 07:55] VITALS: BP 112/62; BP 147/44; PULSE 63; RESP 14; O2SAT 98
[2021-05-27 08:00] VITALS: BP 126/64; BP 147/44; PULSE 66; RESP 16; TEMP 36.1
[2021-05-27 08:23] VITALS: BP 147/44
== END 2021-05-27 08:25 ==
LOC: EN 06:19 → AC 06:21
PROVIDERS: PCP Family Medicine; Referring Provider Family Medicine; Visit Provider Surgery
PROC: 0DJD8ZZ Inspection of Lower Intestinal Tract, Via Natural or Artificial Opening Endoscopic (ICD-10-PCS; CPT 45378; principal; 2021-05-27 07:25)
DX: Z12.11 Encounter for screening for malignant neoplasm of colon (principal); K57.30 Diverticulosis of large intestine without perforation or abscess without bleeding; I10 Essential (primary) hypertension; E11.9 Type 2 diabetes mellitus without complications; F32.9 Major depressive disorder, single episode, unspecified; F41.9 Anxiety disorder, unspecified; M19.90 Unspecified osteoarthritis, unspecified site; G47.30 Sleep apnea, unspecified; K21.9 Gastro-esophageal reflux disease without esophagitis; Z86.73 Personal history of transient ischemic attack (TIA), and cerebral infarction without residual deficits; Z79.82 Long term (current) use of aspirin; Z79.84 Long term (current) use of oral hypoglycemic drugs; Z79.899 Other long term (current) drug therapy
CPT/HCPCS: G0121; 82962; J7120; J2405

== ENCOUNTER → 2021-06-30 08:42 | Outpatient (CLI) | payer MEDICARE, OTHER, SELFPAY ==
--- NOTE | 2021-06-30 08:48 | RAD_ITS ---
STUDY: X-RAY - ESOPHAGUS (BARIUM SWALLOW) WITH FLUOROSCOPY REASON FOR EXAM: Male, 75 years old. GERD TECHNIQUE: 13 view(s) of the esophagus were obtained following swallowing of barium. FLUOROSCOPY TIME (if supplied): (29 seconds) minutes/seconds COMPARISON: None. FINDINGS: There is no demonstrated esophageal foreign body. There is no demonstrated stricture or mucosal abnormality. There is a small hiatal hernia of the fundus of the stomach. Gastroesophageal reflux. The patient ingested a 12 mm tablet of barium without any difficulty. There is atherosclerotic calcification of the aortic arch with tortuosity of the descending aorta. Normal visualized pulmonary parenchyma. There are diffuse degenerative changes of the visualized thoracic spine. RAD/Esophagus Dual Contrast IMPRESSION: Small sliding hiatal hernia with gastric esophageal reflux. Electronically Signed: Guru Liu MD at 15:22 EDT , Service support ,
== END ==
PROVIDERS: PCP Family Medicine; Referring Provider Family Medicine; Visit Provider Family Medicine
DX: K21.9 Gastro-esophageal reflux disease without esophagitis (principal)
CPT/HCPCS: 74221

== ENCOUNTER → 2021-10-20 09:29 | Outpatient (CLI) | payer MEDICARE, OTHER, SELFPAY ==
[2021-10-20 12:54] LABS: Magnesium 2.1 mg/dL (1.6-2.6); Thyroid Stim Hormone (TSH) 1.05 uIU/mL (0.358-3.74)
== END ==
PROVIDERS: PCP Family Medicine; Referring Provider Family Medicine; Visit Provider Family Medicine
DX: I48.91 Unspecified atrial fibrillation (principal)
CPT/HCPCS: 36415; 83735; 84443

== ENCOUNTER → 2021-10-27 13:40 | Outpatient (CLI) | payer MEDICARE, OTHER, SELFPAY ==
--- NOTE | 2021-10-27 14:00 | ECHOD_ITS ---
Reason For Study: A fib Procedure This was a 2D Doppler, Color Flow transthoracic echocardiogram. Exam performed in department. Left Ventricle Normal LV size. Mild concentric left ventricular hypertrophy. Left ventricular systolic function is normal. The estimated ejection fraction is 65 %. Unable to assess diastolic dysfunction due to arrhythmia. No regional wall motion abnormalities noted. Right Ventricle Normal RV size. Normal systolic function. Atria The left atrium is mildly enlarged. Normal right atrium. Mitral Valve Normal mitral valve. Mild (1+) eccentric mitral valve insufficiency. Tricuspid Valve Normal tricuspid valve. Mild tricuspid valve insufficiency. Aortic Valve Trisinus/trileaflet aortic valve. Mild (1+) aortic valve insufficiency. Great Vessels Normal aortic root. The pulmonary artery is normal size. Normal inferior vena cava. Pericardium/Pleural No pericardial effusion. MMode/2D Measurements & Calculations LVIDd: 4.8 cm IVSd: 1.3 cm Ao root diam: 3.6 cm LVIDs: 2.7 cm LVPWd: 1.3 cm RVDd: 3.1 cm FS: 44.4 % LAV(MOD-bp): 66.0 ml LVAd ap4: 28.0 cm2 LVAd ap2: 23.8 cm2 LAV(MOD-bp) Indexed: 33.8 ml/m2 LVLd ap4: 7.6 cm LVLd ap2: 7.2 cm LAV(MOD-sp2): 63.9 ml EDV(MOD-sp4): 86.3 ml EDV(MOD-sp2): 69.1 ml LAV(MOD-sp4): 66.1 ml EDV(sp4-el): 87.1 ml EDV(sp2-el): 66.7 ml LVAs ap4: 18.2 cm2 LVAs ap2: 14.8 cm2 LVLs ap4: 7.0 cm LVLs ap2: 6.8 cm ESV(MOD-sp4): 39.9 ml ESV(MOD-sp2): 27.3 ml ESV(sp4-el): 39.9 ml ESV(sp2-el): 27.3 ml EF(MOD-sp4): 53.7 % EF(MOD-sp2): 60.5 % EF(sp4-el): 54.2 % SV(MOD-sp4): 46.4 ml SV(MOD-sp2): 41.8 ml SV(sp4-el): 47.2 ml LA dimension(2D): 4.7 cm LA A4 area: 23.2 cm2 RA A4 area: 14.5 cm2 Doppler Measurements & Calculations MV E max mar: 91.4 cm/sec Ao V2 max: 120.9 cm/sec AI max mar: 392.1 cm/sec Ao max P.9 mmHg AI max P.8 mmHg AI dec slope: 201.0 cm/sec2 AI P1/2t: 571.3 msec LV V1 max: 97.9 cm/sec PA V2 max: 103.0 cm/sec TR max mar: 213.6 cm/sec LV V1 max P.8 mmHg TR max P.8 mmHg ECHO/Echo Complete Interpretation Summary Normal LV size. Left ventricular systolic function is normal. Mild concentric left ventricular hypertrophy. The estimated ejection fraction is 65 %. The left atrium is mildly enlarged. Mild (1+) eccentric mitral valve insufficiency. Mild tricuspid valve insufficiency. Unable to assess diastolic dysfunction due to arrhythmia. Mild (1+) aortic valve insufficiency. Ordering Physician: Reilly Yan Referring Physician: Reilly Yan Performed By: Babita Guzman RDCS
== END ==
PROVIDERS: PCP Family Medicine; Referring Provider Family Medicine; Visit Provider Family Medicine
DX: I48.91 Unspecified atrial fibrillation (principal); I34.0 Nonrheumatic mitral (valve) insufficiency
CPT/HCPCS: 93306

== ENCOUNTER 2022-01-01 06:48 | Outpatient (CLI) | payer MEDICARE, OTHER, SELFPAY ==
--- NOTE | 2022-01-01 12:58 | STRESSREP_ITS ---
Stress Test Report Date: 01/01/2022 Procedure: Pharmacologic stress nuclear imaging study Indications: Atrial fibrillation Consent: Per the patient Procedure: The patient underwent pharmacologic (Regadenoson) evaluation with a peak heart rate of 139 beats per minute (95%predicted maximal heart rate) and a peak blood pressure of 152/80 mmHg. The baseline ECG demonstrated atrial fibrillation, left anterior fascicle block. EKG during lexiscan infusion revealed no significant ischemic changes. EKG post infusion revealed no significant ischemic changes [There were no cardiac dysrhythmias pretest, during pharmacologic infusion, or recovery]. [There was no complaint of chest discomfort during pharmacologic infusion or recovery]. The examination was discontinued secondary to completion of protocol. Impression: 1. Lexiscan stress test test is negative for Lexiscan infusion induced EKG changes of ischemia. 2. Lexiscan stress test test is negative for Lexiscan infusion induced chest pain. 3. Results of the nuclear portion of the test is as below Myocardial perfusion imaging study: Technique: The patient was injected with [] millicuries of technetium 99m Cardiolite and subsequently rest SPECT Cardiolite nuclear imaging was obtained in the horizontal long, vertical long, and short axis views. The patient underwent pharmacologic [Regadenoson 0.4mg] evaluation. Please see above for details. The patient was injected with [] millicuries of technetium 99m Cardiolite and subsequently stress SPECT Cardiolite nuclear imaging was obtained in the horizontal long, vertical long, and short axis views. A gated Cardiolite study at peak stress was obtained. Interpretation: Rest and stress SPECT Cardiolite nuclear imaging status post realignment, normalization, and attenuation correction demonstrate decrease radioisotope uptake on the inferior wall on both the rest and stress images prior to attenuation correction. After attenuation correction there is normal myocardial radioisotope uptake. These evidence are suggestive of diaphragmatic attenuation artifact. There is no evidence of significant ischemia or infarct ion. Gated images reveal no significant regional wall motion abnormalities. The reported LVEF is 66%. Impression: 1. There is no evidence of significant ischemia or infarction. 2. Estimated ejection fraction is 66%. This note was generated with [employer] software. It may contain incorrect words, spelling, and punctuation that were not noted in checking the note before signing.
== END 2022-01-01 23:59 | disposition home or self-care (01) ==
PROVIDERS: PCP Family Medicine; Referring Provider Family Medicine; Visit Provider Family Medicine
DX: I48.91 Unspecified atrial fibrillation (principal); I25.10 Atherosclerotic heart disease of native coronary artery without angina pectoris
CPT/HCPCS: 78452; 93017; A9500; A4216; J2785

== ENCOUNTER 2022-02-20 12:32 | Outpatient (CLI) | payer MEDICARE, OTHER, SELFPAY ==
[2022-02-20 14:01] LABS: Anion Gap 4 (5-15); BUN 20 mg/dL (7-18); Calcium,Total 9.2 mg/dL (8.5-10.1); Chloride 106 mmol/L (98-107); Creatinine, Serum 1.25 mg/dL (0.70-1.30); EST Glomerular Filtration Rate 60 mL/min (>60); Est Glom Filt Rate - Afr Amer 72 mL/min (>60); Glucose 84 mg/dL (74-106); Potassium 4.5 mmol/L (3.5-5.1); Sodium Level 138 mmol/L (136-145)
== END 2022-02-20 23:59 | disposition home or self-care (01) ==
PROVIDERS: PCP Family Medicine; Referring Provider Internal Medicine Cardiovascular Disease; Visit Provider Internal Medicine Cardiovascular Disease
DX: I48.91 Unspecified atrial fibrillation (principal)
CPT/HCPCS: 36415; 80048

== ENCOUNTER 2022-03-18 11:23 | Day surgery (SDC) | payer MEDICARE, OTHER, SELFPAY ==
[2022-03-17 10:29] VITALS: BMI 27.6
--- NOTE | 2022-03-18 13:15 | PCM.OP.BLANK ---
Problems Associated Problem List Diagnoses (1) Persistent atrial fibrillation: Operative Report Date of Procedure: 03/18/22 DC cardioversion. Mr. Lemus is 76-year-old male with a history of persistent atrial fibrillation which was symptomatic. He has been on therapeutic anticoagulation for least 3 weeks. Patient was brought to cardiac catheterization lab in the postabsorptive nonsedated state. Informed consent was obtained. The patient was seen by Dr. Fraser of the critical care division. Anterior-posterior pads were applied. The patient was then administered 40 mg of intravenous propofol. 200 J of synchronized biphasic DC cardioversion energy were applied with prompt reversal to sinus rhythm. Patient tolerated the procedure well. Conclusion: Successful DC cardioversion from atrial fibrillation to sinus rhythm.
--- NOTE | 2022-03-18 13:18 | PRO.PCM_ITS ---
Procedure Report Date of Procedure: 03/18/22 CONSCIOUS SEDATION REPORT DATE OF SERVICE: March 18, 2022 BRIEF HISTORY OF PRESENT ILLNESS: The patient is a 76-year-old male who presented to [facility] for an elective outpatient cardioversion due to underlying atrial fibrillation. The patient has never previously undergone a cardioversion in the past. He denies any prior anesthetic complications. His last surface echocardiogram demonstrated an ejection fraction of approximately 65%. The patient does have a known history of obstructive sleep apnea and currently utilizes nocturnal CPAP therapy. He is a non-smoker. He is systemically anticoagulated on Eliquis. PHYSICAL EXAMINATION: VITAL SIGNS: Reviewed and were acceptable. GENERAL: The patient is a male, in no apparent distress, speaking in full sentences. HEENT: Normocephalic, atraumatic. Mucous membranes are moist and pink. Good mouth opening noted. Trachea is midline. Good neck mobility. CHEST: S1, S2 irregularly irregular. No murmurs, rubs or gallops were noted. LUNGS: Clear to auscultation bilaterally without appreciable wheezes, rales or rhonchi. ABDOMEN: Soft, nontender, nondistended. Positive bowel sounds. EXTREMITIES: There is no clubbing, cyanosis or edema. ASA Class: II DESCRIPTION OF PROCEDURE: After confirmation of informed consent, the patient's anesthesia plan was reviewed in detail. Propofol was chosen. Risks and benefits were reviewed and the patient agreed to proceed. At 1306, the patient was given 40 mg of propofol. The patient achieved an appropriate level of sedation and was given a 200 joule synchronized cardioversion by Dr. Wright at the bedside. This was successful in achieving normal sinus rhythm. The patient was monitored until 1320, at which time he reached his baseline mental status and function. The patient tolerated the procedure well. COMPLICATIONS: None ESTIMATED BLOOD LOSS: None RECOMMENDATIONS: Okay to recover in usual fashion. Procedures Pulmonary 9xxxx: [id number] Con Sedation
== END 2022-03-18 14:17 | disposition home or self-care (01) ==
LOC: CLSP 11:23
PROVIDERS: PCP Family Medicine; Visit Provider Internal Medicine Cardiovascular Disease
DX: I48.91 Unspecified atrial fibrillation (principal); E11.9 Type 2 diabetes mellitus without complications; I10 Essential (primary) hypertension; F41.9 Anxiety disorder, unspecified; M19.90 Unspecified osteoarthritis, unspecified site; F32.A Depression, unspecified; K21.9 Gastro-esophageal reflux disease without esophagitis; Z86.73 Personal history of transient ischemic attack (TIA), and cerebral infarction without residual deficits; G47.33 Obstructive sleep apnea (adult) (pediatric); I25.10 Atherosclerotic heart disease of native coronary artery without angina pectoris; Z79.82 Long term (current) use of aspirin; Z79.899 Other long term (current) drug therapy; Z79.84 Long term (current) use of oral hypoglycemic drugs
CPT/HCPCS: 92960; 93005; J7030

== ENCOUNTER → 2023-07-13 | Outpatient (CLI) | payer MEDICARE, OTHER, SELFPAY ==
[2023-07-13 14:12] LABS: Absolute Lymphocyte Count 1.15 X10^3/uL (0.83-4.51); Absolute Neutrophil Count 3.2 X10^3/uL (2.0-7.7); Basophil# 0.05 X10^3/uL; Eosinophil# 0.19 X10^3/uL; Eosinophils% 3.7 % (0-5); Hematocrit 41.6 % (40-54); Hemoglobin 13.8 g/dL (13.0-16.5); Lymphocyte # 1.15 X10^3/ul (0.83-4.51); Lymphocyte % 22.5 % (19-41); Mean Corp Hgb Conc 33.2 g/dL (32-36); Mean Corpuscular Hgb 31.4 pg (27.0-32.0); Mean Corpuscular Volume 94.5 fL (80-94); Mean Platelet Vol. 10.7 fl (6.2-12.0); Monocyte# 0.56 X10^3/uL; Monocyte% 10.9 % (0-10); NRBC Flagged by Analyzer 0 % (0-5); Neutrophil # 3.16 X10^3/uL (2.7-7.7); Neutrophil % 61.7 % (47-70); Platelet Count 157 K/mm3 (150-450); RBC Distribution Width CV 13.3 % (11.6-14.6); RBC Distribution Width SD 46.4 fl (35.1-43.9); White Blood Count 5.1 K/mm3 (4.4-11.0)
[2023-07-13 14:42] LABS: BNP,B-Type NATRIURETIC PEPTIDE 209.8 pg/mL (0-100)
[2023-07-13 14:51] LABS: Magnesium 2.2 mg/dL (1.6-2.6)
[2023-07-13 14:56] LABS: ALB/GLOB Ratio 1.2 RATIO (0.9-2.4); AST(SGOT) 16 U/L (15-37); Alanine Aminotransfer ALT/SGPT 27 U/L (16-61); Albumin, Serum 3.4 g/dL (3.2-5.0); Alkaline Phosphatase 87 U/L (45-117); Anion Gap 7 (5-15); BUN 15 mg/dL (7-18); BUN/Creat Ratio 11.5 RATIO (10-20); Calcium,Total 8.5 mg/dL (8.5-10.1); Chloride 104 mmol/L (98-107); Cholesterol 116 mg/dL (200); EST Glomerular Filtration Rate 57 mL/min (>60); Est Glom Filt Rate - Afr Amer 69 mL/min (>60); Globulin 2.8 g/dL (2.2-4.2); Glucose 91 mg/dL (74-106); High Density Lipoprotein 49 mg/dL; Potassium 4.3 mmol/L (3.5-5.1); Protein, Total 6.2 g/dL (6.4-8.2); Sodium Level 138 mmol/L (136-145); Thyroid Stim Hormone (TSH) 1.31 uIU/mL (0.358-3.74); Triglycerides 259 mg/dL; Very Low Density Lipoprotein 52 mg/dL (5-40)
== END | disposition home or self-care (01) ==
LOC: LAB 13:41
PROVIDERS: PCP Family Medicine; Referring Provider Nurse Practitioner Gerontology; Visit Provider Nurse Practitioner Gerontology
DX: R06.00 Dyspnea, unspecified (principal); I48.91 Unspecified atrial fibrillation; R53.83 Other fatigue; I10 Essential (primary) hypertension
CPT/HCPCS: 36415; 80053; 80061; 83735; 83880; 84443; 85025

== ENCOUNTER → 2023-07-15 | Outpatient (CLI) | payer MEDICARE, OTHER, SELFPAY | END | disposition home or self-care (01) | PROVIDERS: PCP Family Medicine; Referring Provider Nurse Practitioner Gerontology; Visit Provider Nurse Practitioner Gerontology | DX: I48.91 Unspecified atrial fibrillation (principal) | CPT/HCPCS: 93225; 93226 ==

== ENCOUNTER → 2023-07-20 | Outpatient (CLI) | payer MEDICARE, OTHER, SELFPAY ==
[2023-07-20 15:43] LABS: Anion Gap 4 (5-15); BUN 19 mg/dL (7-18); BUN/Creat Ratio 14.3 RATIO (10-20); Calcium,Total 8.9 mg/dL (8.5-10.1); Chloride 103 mmol/L (98-107); Creatinine, Serum 1.33 mg/dL (0.70-1.30); EST Glomerular Filtration Rate 55 mL/min (>60); Est Glom Filt Rate - Afr Amer 67 mL/min (>60); Glucose 93 mg/dL (74-106); Potassium 4.5 mmol/L (3.5-5.1); Sodium Level 135 mmol/L (136-145)
== END | disposition home or self-care (01) ==
PROVIDERS: PCP Family Medicine; Referring Provider Nurse Practitioner Gerontology; Visit Provider Nurse Practitioner Gerontology
DX: R06.00 Dyspnea, unspecified (principal)
CPT/HCPCS: 36415; 80048

== ENCOUNTER → 2023-10-14 | Outpatient (CLI) | payer MEDICARE, OTHER, SELFPAY ==
--- NOTE | 2023-10-14 13:52 | RAD_ITS ---
STUDY: X-RAY CHEST REASON FOR EXAM: Male, 78 years old. Cardioversion. TECHNIQUE: Frontal and lateral views of the chest. COMPARISON: January 04, 2020 FINDINGS: Stable mild hyperinflation. There is no demonstrated pleural abnormality. Cardiomegaly unchanged. Normal mediastinum and jonny. Normal visualized pulmonary arteries. Aortic tortuosity with calcification unchanged. Normal visualized thoracic spine. Normal visualized ribs, clavicles, and shoulders. No abnormality of the visualized soft tissue structures of the upper abdomen. RAD/Chest PA and Lateral IMPRESSION: Stable chest with no acute or active cardiopulmonary disease. Electronically Signed: Danie Hensley MD at 14:51 EST ,
== END | disposition home or self-care (01) ==
LOC: RAD 13:50
PROVIDERS: PCP Family Medicine; Referring Provider Nurse Practitioner Gerontology; Visit Provider Nurse Practitioner Gerontology
DX: I48.91 Unspecified atrial fibrillation (principal)
CPT/HCPCS: 71046

== ENCOUNTER 2023-11-18 10:21 | Day surgery (SDC) | payer MEDICARE, OTHER, SELFPAY ==
[2023-11-09 09:27] LABS: Anion Gap 3 (5-15); BUN 15 mg/dL (7-18); Calcium,Total 9.3 mg/dL (8.5-10.1); Chloride 107 mmol/L (98-107); EST Glomerular Filtration Rate 48 mL/min (>60); Est Glom Filt Rate - Afr Amer 58 mL/min (>60); Glucose 119 mg/dL (74-106); Potassium 4.1 mmol/L (3.5-5.1); Sodium Level 138 mmol/L (136-145)
--- NOTE | 2023-11-11 13:32 | PCM.HP.BLA ---
History and Physical Date of Admission: 11/18/23 This is a pleasant 78-year-old man who presents to the office today for a cardiovascular visit. He has a previous history of hypertension, normal coronary arteries following a cardiac catheterization in 2016, hyperlipidemia. He was recently noted to be in atrial fibrillation on a routine office physical. He had been complaining of significant fatigue. As part of his work-up he underwent an echocardiographic evaluation in October 2021 demonstrating an ejection fraction of 65% with mild concentric left ventricular hypertrophy and no wall motion abnormalities noted. His left atrium was mildly enlarged. He underwent a pharmacologic myocardial perfusion stress test which demonstrated no evidence of ischemia and an event monitor demonstrated 100% atrial fibrillation with a controlled ventricular response rate of 65 bpm. He underwent a successful cardioversion in March of 2022. From a cardiac standpoint, the patient is doing well. He denies any palpitations, chest pain, pressure or heaviness. He does have SOB with exertion and at rest. He states some SOB may be related to anxiety. He denies Orthopnea, and PND. He does not have bleeding issues; no blood in urine, stool or nosebleeds. He does acknowledge fatigue. He denies myalgias, or claudication. He does not have edema, or sudden weight gain. He does have occasional lightheadedness with quick positional changes. He denies dizziness, syncopal or near syncopal episodes, and headaches. Intake Vital Signs: See EMR Intake Visit Reasons: [facility] Hair Mixer Required: No Is patient in pain?: No Allergies house dust Allergy (Verified 10/14/23 13:08) upper respiratory symptoms pollen extracts Allergy (Verified 10/14/23 13:08) upper respiratory symptoms Medications See EMR [facility] Medical History Anxiety Arthritis Back pain CPAP (continuous positive airway pressure) dependence Depression Diabetes Gastric reflux History of hiatal hernia History of stroke (2011) Knee pain Limb weakness Low iron Neck pain New onset atrial fibrillation (10/2021) Non-smoker Obstructive sleep apnea Persistent atrial fibrillation Seasonal allergies Shortness of breath Sleep apnea TIA (transient ischemic attack) Wears dentures Wears glasses Surgical History History of bilateral cataract extraction History of hernia repair History of left heart catheterization (01/07/06) History of transurethral resection of prostate Family History Father Prostate cancer CAD (coronary artery disease)Mother CAD (coronary artery disease) Myocardial infarctionBrother Obstructive sleep apneaBrother Myocardial infarction CAD (coronary artery disease) History of coronary artery stent placement Obstructive sleep apnea ObesityBrother Obstructive sleep apneaBrother Obstructive sleep apnea Social History Smoking Status: Never smoker alcohol intake: never ROS Const Const: Positive for fatigue; Negative for weakness, fever(s), headache(s), chills, frequent falls, weight gain or weight loss Eyes Eyes: Negative for blind spots, loss of peripheral vision, transient loss of vision, blurry vision, change in vision, double vision, floaters or tunnel vision ENT ENT: Negative for headache(s), dizziness, Nosebleed/epistaxis, balance problems or neck pain Cardio Chest Pain: No Palpitations: No Edema: None Muscle aches with walking: None Resp Respiratory: Positive for SOB with activity and SOB at rest; Negative for SOB orthopnea\SOB lying down GI GI: Negative nausea, vomiting, heartburn, bloating, vomiting blood/hematemesis, bright, red blood in stools or black,tarry stools Musc Musc: Negative for muscle aches/ myalgia, muscle weakness, joint pain or balance problems Neuro Neuro: Positive for lightheadedness (occasional with quick positional changes); Negative for dizziness, near syncope, syncope, orthostatic symptoms, frequent falls, headache(s), weakness, blurry vision or double vision Richard Hematologic/Lymphatic: Negative for easy bleeding or easy bruising Endo Endo: Positive for fatigue Cardiology Exam Const Appearance: cooperative, healthy appearing, no acute distress, well developed and well groomed Nutritional Appearance: average body habitus and well nourished Orientation: alert, awake and oriented x3 Head Head: normal to inspection, normocephalic and atraumatic Ears: hearing grossly normal bilaterally and external ears normal Nose: external nose normal Face and Sinus: face symmetric Eyes General: appearance normal, both eyes and all related structures Eyelids: eyelids normal Conjunctivae: conjunctivae normal Pupils: PERRL EOM: EOM intact bilaterally Neck Neck: normal visual inspection, trachea midline and no JVD JVD: +5 Carotids: normal carotid upstroke and bounding pulses Chest Chest inspection: normal inspection of the chest, symmetric chest movement and normal respiratory effort Auscultation: Bilateral: Clear to Auscultation Cardio Palpation: normal PMI Rate: regular rate Rhythm: irregular rhythm Heart sounds: S1 normal, S2 normal and normal, physiologic split S2; Negative rub, gallop or murmur GI GI: normal to inspection and soft Neuro General: patient alert, patient awake, patient oriented x3, gait normal, moves all extremities and no focal sensory deficit Skin Skin: no rashes or lesions noted Extremities Pulses: Normal: Right Posterior Tibial Pulse, Left Posterior Tibial Pulse, Right Radial Pulse and Left Radial Pulse Lower Extremity Edema: None: Bilateral Musculoskel Musculoskeletal: No joint tenderness Psych Psychological: normal affect Supplemental Info Supplemental Information Echocardiogram 10/27/2021: Interpretation Summary Normal LV size. Left ventricular systolic function is normal. Mild concentric left ventricular hypertrophy. The estimated ejection fraction is 65 %. The left atrium is mildly enlarged. Mild (1+) eccentric mitral valve insufficiency. Mild tricuspid valve insufficiency. Unable to assess diastolic dysfunction due to arrhythmia. Mild (1+) aortic valve insufficiency. Stress test 10/31/2022: Interpretation: Rest and stress SPECT Cardiolite nuclear imaging status post realignment, normalization, and attenuation correction demonstrate decrease radioisotope uptake on the inferior wall on both the rest and stress images prior to attenuation correction. After attenuation correction there is normal myocardial radioisotope uptake. These evidence are suggestive of diaphragmatic attenuation artifact. There is no evidence of significant ischemia or infarction. Gated images reveal no significant regional wall motion abnormalities. The reported LVEF is 66%. Impression: 1. There is no evidence of significant ischemia or infarction. 2. Estimated ejection fraction is 66%. Assessment and Plan Assessment and Plan (1) Persistent atrial fibrillation: Status: Acute Plan: Patient has a history of atrial fibrillation. His echocardiogram from 10/27/2021 demonstrated an ejection fraction of 65%, and mildly enlarged left atrium. He underwent a successful cardioversion in March of 2022. His most recent Holter monitor from 06/2023 demonstrated an average heart rate of 75bpm, and atrial fibrillation 99.3%. He appears to be in an irregular rhythm on exam today. His heart rate is well controlled at this time. He does acknowledge dyspnea with exertion and at rest, as well as fatigue. He will continue Eliquis 5mg twice daily, and metoprolol tartrate 12.5mg twice daily. He was started on amiodarone at last cardiology office visit. He will proceed with cardioversion. (2) Essential hypertension: Status: Acute Plan: Patient has a history of hypertension. His blood pressure is well controlled at this time. He will continue with his current medical therapy, along with monitoring his blood pressures at home. He will notify our office of any persistently high or low blood pressure readings. (3) Hyperlipidemia: Status: Chronic Plan: Patient has a history of hyperlipidemia. The [facility] monitors this. His most recent lipid panel from 08/17/2022: cholesterol 127, HLD 52, LDL 65, triglycerides 124. He will continue atorvastatin 40 mg daily, along with aggressive risk factor and lifestyle modifications. A copy of his most recent lipid panel would be greatly appreciated for continuity of care.
[2023-11-17 09:15] VITALS: BMI 34.9
== END 2023-11-18 13:15 | disposition home or self-care (01) ==
LOC: CLSP 10:23
PROVIDERS: Nurse Practitioner Gerontology; PCP Family Medicine; Referring Provider Internal Medicine Cardiovascular Disease; Visit Provider Internal Medicine Cardiovascular Disease
DX: I48.19 Other persistent atrial fibrillation (principal); E11.9 Type 2 diabetes mellitus without complications; I10 Essential (primary) hypertension; E78.5 Hyperlipidemia, unspecified; R53.83 Other fatigue; R06.02 Shortness of breath; Z82.49 Family history of ischemic heart disease and other diseases of the circulatory system; Z86.73 Personal history of transient ischemic attack (TIA), and cerebral infarction without residual deficits; G47.33 Obstructive sleep apnea (adult) (pediatric); Z99.89 Dependence on other enabling machines and devices
CPT/HCPCS: 36415; 80048; 92960; 93005; J7040

== ENCOUNTER → 2023-11-22 | Outpatient (CLI) | payer MEDICARE, OTHER, SELFPAY ==
--- NOTE | 2023-11-18 12:12 | PCM.OP.PRO ---
Procedure Report Date of Procedure: 11/18/23 DC cardioversion. 78-year-old man with a history of atrial fibrillation. The patient presented to the noninvasive lab in the postabsorptive and on sedated state. Patient was seen by the physician, Dr Mckeon from the critical care division. Informed consent was obtained. Anterior-posterior pads were applied. The patient was ascertained to have been compliant with his anticoagulation regimen. Patient was then administered 40 mg of intravenous propofol. 200 J of synchronized DC biphasic energy were applied with prompt reversal to sinus rhythm. Patient tolerated the procedure well. Conclusion: Successful DC cardioversion from atrial fibrillation to sinus rhythm. Continue and follow-up as per office protocol.
--- NOTE | 2023-11-18 12:44 | PRO.PCM_ITS ---
Procedure Report Date of Procedure: 11/18/23 CONSCIOUS SEDATION REPORT BRIEF HISTORY OF PRESENT ILLNESS: The patient is a [78]-year-old [male] who presented to [facility] for an elective outpatient cardioversion due to underlying atrial fibrillation. The patient reports no PO intake since midnight, but is currently therapeutic on anticoagulation. The patient has a history of obstructive sleep apnea and is compliant with therapy. The patient denies history of smoking and COPD. The patient denies any recent constitutional symptoms such as fevers, chills, nausea or vomiting. The patient denies previous applicable anesthetic complications. PHYSICAL EXAMINATION: VITAL SIGNS: Reviewed and were acceptable. GENERAL: The patient is a [male], in no apparent distress, speaking in full sentences. HEENT: Normocephalic, atraumatic. Mucous membranes are moist and pink. Good mouth opening noted. Trachea is midline. Good neck mobility. MP [IV] CHEST: S1, S2 irregularly irregular. No murmurs, rubs or gallops were noted. LUNGS: Clear to auscultation bilaterally without appreciable wheezes, rales or rhonchi. ABDOMEN: Soft, nontender, nondistended. Positive bowel sounds. EXTREMITIES: There is no clubbing, cyanosis or edema. ASA Class: II DESCRIPTION OF PROCEDURE: After confirmation of informed consent, the patient's anesthesia plan was reviewed in detail. [Propofol] was chosen. Risks and benefits were reviewed and the patient agreed to proceed. At [12:08], the patient was given [40 mg of propofol]. The patient achieved an appropriate level of sedation and received 1 attempt synchronized cardioversion, at [200 J respectively] by Dr. Wright at the bedside. This was [successful] in achieving normal sinus rhythm. The patient was monitored until [12:18], at which time the patient reached their baseline mental status and function. The patient tolerated the procedure well. COMPLICATIONS: None ESTIMATED BLOOD LOSS: None RECOMMENDATIONS: Okay to recover in usual fashion. Procedures Pulmonary CF Procedures Pulmonary: 27767 Con Sedation
--- NOTE | 2023-11-22 09:49 | ECHOD_ITS ---
Reason For Study: SOB, Persistent A. fib Procedure This was a 2D Doppler, Color Flow transthoracic echocardiogram. Exam performed in department. Left Ventricle Normal LV size. Mild concentric left ventricular hypertrophy. Left ventricular systolic function is normal. The estimated ejection fraction is 65 %. Normal diastology for age. No regional wall motion abnormalities noted. Right Ventricle Normal RV size. Normal systolic function. Atria Normal left atrium. Normal right atrium. Mitral Valve Normal mitral valve. Mild (1+) eccentric mitral valve insufficiency. Tricuspid Valve Normal tricuspid valve. Mild tricuspid valve insufficiency. Pulmonary artery systolic pressure is 28 mmHg. Aortic Valve Trisinus/trileaflet aortic valve. Mild (1+) eccentric aortic valve insufficiency. Pulmonic Valve Normal pulmonic valve. Great Vessels Normal aortic root. The pulmonary artery is normal size. Normal inferior vena cava. Pericardium/Pleural No pericardial effusion. MMode/2D Measurements & Calculations LVIDd: 5.1 cm IVSd: 1.2 cm Ao root diam: 3.2 cm LVIDs: 2.9 cm LVPWd: 1.2 cm RVDd: 3.8 cm FS: 43.2 % LAV(MOD-bp): 81.6 ml LVAd ap4: 31.7 cm2 LVAd ap2: 31.6 cm2 LAV(MOD-bp) Indexed: 40.6 ml/m2 LVLd ap4: 7.8 cm LVLd ap2: 7.6 cm LAV(MOD-sp2): 92.4 ml EDV(MOD-sp4): 106.5 ml EDV(MOD-sp2): 110.9 ml LAV(MOD-sp4): 68.5 ml EDV(sp4-el): 108.6 ml EDV(sp2-el): 110.7 ml LVAs ap4: 19.5 cm2 LVAs ap2: 18.3 cm2 LVLs ap4: 7.0 cm LVLs ap2: 7.0 cm ESV(MOD-sp4): 46.6 ml ESV(MOD-sp2): 41.0 ml ESV(sp4-el): 46.0 ml ESV(sp2-el): 40.2 ml EF(MOD-sp4): 56.3 % EF(MOD-sp2): 63.0 % EF(sp4-el): 57.7 % SV(MOD-sp4): 60.0 ml SV(MOD-sp2): 69.9 ml SV(sp4-el): 62.7 ml LA dimension(2D): 4.5 cm LA A4 area: 23.8 cm2 RA A4 area: 19.9 cm2 TAPSE: 2.1 cm Time Measurements MV dec time: 0.15 sec Doppler Measurements & Calculations MV E max santosh: 91.1 cm/sec Lat Peak E' Santosh: 10.9 cm/sec Med Peak E' Santosh: 6.7 cm/sec MV A max santosh: 65.1 cm/sec E/E' lat: 8.4 E/E' med: 13.6 MV E/A: 1.4 MV dec slope: 612.4 cm/sec2 Ao V2 max: 136.5 cm/sec AI max santosh: 390.5 cm/sec Ao max P.5 mmHg AI max P.0 mmHg Ao V2 mean: 88.0 cm/sec AI dec slope: 237.3 cm/sec2 Ao mean P.7 mmHg AI P1/2t: 481.9 msec Ao V2 VTI: 32.5 cm AV (velocity ratio): 0.74 LV V1 max: 108.2 cm/sec PA V2 max: 101.4 cm/sec TR max santosh: 248.9 cm/sec LV V1 max P.7 mmHg TR max P.8 mmHg LV V1 mean P.4 mmHg LV V1 mean: 71.8 cm/sec LV V1 VTI: 24.0 cm ECHO/Echo Complete Interpretation Summary Normal LV size. Mild concentric left ventricular hypertrophy. The estimated ejection fraction is 65 %. Left ventricular systolic function is normal. Mild (1+) eccentric aortic valve insufficiency. The global longitudinal strain is normal. The global longitudinal strain = -17. 9 % (normal). Ordering Physician: Alecia Soler Referring Physician: Pascual Yan MD Performed By: Babita Guzman RDCS
== END | disposition home or self-care (01) ==
LOC: CVS 09:48
PROVIDERS: PCP Family Medicine; Referring Provider Nurse Practitioner Gerontology; Visit Provider Nurse Practitioner Gerontology
DX: I48.19 Other persistent atrial fibrillation (principal); R06.00 Dyspnea, unspecified
CPT/HCPCS: 93306

== ENCOUNTER → 2024-02-29 | Outpatient (CLI) | payer OTHER, SELFPAY ==
[2024-02-29 10:53] LABS: Absolute Lymphocyte Count 0.49 X10^3/uL (0.83-4.51); Absolute Neutrophil Count 1.9 X10^3/uL (2.0-7.7); Basophil# 0.03 X10^3/uL; Eosinophil# 0.09 X10^3/uL; Eosinophils% 2.9 % (0-5); Hematocrit 38.4 % (40-54); Hemoglobin 12.6 g/dL (13.0-16.5); Lymphocyte # 0.49 X10^3/ul (0.83-4.51); Mean Corp Hgb Conc 32.8 g/dL (32-36); Mean Corpuscular Hgb 31.2 pg (27.0-32.0); Mean Platelet Vol. 9.7 fl (6.2-12.0); Monocyte# 0.56 X10^3/uL; Monocyte% 18.2 % (0-10); NRBC Flagged by Analyzer 0 % (0-5); Neutrophil # 1.89 X10^3/uL (2.7-7.7); Neutrophil % 61.6 % (47-70); POSITIVE DIFFERENTIAL YES; Platelet Count 156 K/mm3 (150-450); RBC Distribution Width CV 13.3 % (11.6-14.6); RBC Distribution Width SD 46.5 fl (35.1-43.9); Red Blood Count 4.04 M/mm3 (4.6-6.2); White Blood Count 3.1 K/mm3 (4.4-11.0)
[2024-02-29 11:27] LABS: Anion Gap 4 (5-15); BUN 18 mg/dL (7-18); Calcium,Total 9.6 mg/dL (8.5-10.1); Chloride 106 mmol/L (98-107); Creatinine, Serum 1.63 mg/dL (0.70-1.30); EST Glomerular Filtration Rate 44 mL/min (>60); Est Glom Filt Rate - Afr Amer 53 mL/min (>60); Glucose 132 mg/dL (74-106); Potassium 4.4 mmol/L (3.5-5.1); Sodium Level 139 mmol/L (136-145); T4 Free Direct 1.89 ng/dL (0.76-1.46)
== END | disposition home or self-care (01) ==
LOC: LAB 10:31
PROVIDERS: PCP Family Medicine; Referring Provider Nurse Practitioner Gerontology; Visit Provider Nurse Practitioner Gerontology
DX: R53.83 Other fatigue (principal); Z79.899 Other long term (current) drug therapy
CPT/HCPCS: 36415; 80048; 84439; 84443; 85025

== ENCOUNTER → 2024-03-14 | Outpatient (CLI) | payer OTHER, MEDICARE, SELFPAY ==
[2024-03-14 12:39] LABS: Absolute Lymphocyte Count 0.39 X10^3/uL (0.83-4.51); Absolute Neutrophil Count 2.1 X10^3/uL (2.0-7.7); Basophil# 0.03 X10^3/uL; Eosinophil# 0.11 X10^3/uL; Eosinophils% 3.5 % (0-5); Hematocrit 38.8 % (40-54); Hemoglobin 12.5 g/dL (13.0-16.5); Lymphocyte # 0.39 X10^3/ul (0.83-4.51); Lymphocyte % 12.5 % (19-41); Mean Corp Hgb Conc 32.2 g/dL (32-36); Mean Corpuscular Hgb 30.5 pg (27.0-32.0); Mean Corpuscular Volume 94.6 fL (80-94); Mean Platelet Vol. 10.6 fl (6.2-12.0); Monocyte# 0.48 X10^3/uL; Monocyte% 15.4 % (0-10); NRBC Flagged by Analyzer 0 % (0-5); Neutrophil # 2.11 X10^3/uL (2.7-7.7); Neutrophil % 67.6 % (47-70); POSITIVE DIFFERENTIAL YES; Platelet Count 150 K/mm3 (150-450); RBC Distribution Width CV 13.2 % (11.6-14.6); RBC Distribution Width SD 45.2 fl (35.1-43.9); RET-HE 33.4 pg (30-35); Reticulocyte Count 1.65 % (0.5-1.5); White Blood Count 3.1 K/mm3 (4.4-11.0)
[2024-03-14 12:55] LABS: Anion Gap 4 (5-15); BUN 14 mg/dL (7-18); BUN/Creat Ratio 8.5 RATIO (10-20); Calcium,Total 10.1 mg/dL (8.5-10.1); Chloride 105 mmol/L (98-107); Creatinine, Serum 1.65 mg/dL (0.70-1.30); EST Glomerular Filtration Rate 43 mL/min (>60); Est Glom Filt Rate - Afr Amer 52 mL/min (>60); Ferritin 45 ng/mL (26-388); Glucose 117 mg/dL (74-106); Iron 53 ug/dL (65-175); Iron Binding Capacity,Total 297 ug/dL (250-450); Potassium 4.2 mmol/L (3.5-5.1); Sodium Level 138 mmol/L (136-145)
[2024-03-14 12:56] LABS: Vitamin B12 465 pg/mL (211-911)
== END | disposition home or self-care (01) ==
LOC: MFPLAB 09:21
PROVIDERS: PCP Family Medicine; Visit Provider Family Medicine
DX: N18.30 Chronic kidney disease, stage 3 unspecified (principal); D72.819 Decreased white blood cell count, unspecified; R53.83 Other fatigue
CPT/HCPCS: 36415; 80048; 82607; 82728; 83540; 83550; 84403; 85025; 85045

== ENCOUNTER → 2024-06-21 | Outpatient (CLI) | payer MEDICARE, OTHER, SELFPAY ==
--- NOTE | 2024-06-21 16:45 | STRESSREP ---
Stress Test Report Pharmacologic myocardial perfusion stress test. 78-year-old man with a history of chest pain Resting EKG demonstrates sinus bradycardia with a rate of 54 bpm. Resting blood pressure is 114/60 mmHg. 0.4 mg of regadenoson was infused per usual protocol followed by rapid intravenous saline flush injection. Continuous EKG monitoring was performed. The maximum heart rate was 69 bpm which was 48% of max impacted heart rate the maximum workload was 1 metabolic equivalent. At rest there were no ST or T wave changes noted to suggest ischemia and at peak infusion nonspecific ST changes were noted which did not meet the criteria for ischemia. No clinical angina is noted. The final blood pressure was 118/52 mmHg. Myocardial perfusion protocol. 11.6 mCi of technetium 99m sestamibi was injected at rest. 0.4 mg of regadenoson was infused per usual protocol. At peak infusion 34.1 mCi of technetium 99m sestamibi was injected stress images were obtained stress and rest images were reconstructed and compared in the short axis vertical long and horizontal long axis. Gated images were also obtained. Perfusion SPECT analysis: Review of the stress images demonstrate normal uptake of tracer noted in all areas of the myocardium. The resting images similar demonstrated normal uptake of tracer noted in all areas of the myocardium. No areas of reversibility are noted to suggest ischemia and no previous infarct is noted. Gated SPECT analysis: The gated ejection fraction is 59%. Conclusion: Normal pharmacologic myocardial perfusion stress test. Preserved ejection fraction.
== END | disposition home or self-care (01) ==
LOC: CVS 06:47
PROVIDERS: PCP Family Medicine; Referring Provider Nurse Practitioner Gerontology; Visit Provider Nurse Practitioner Gerontology
DX: R53.83 Other fatigue (principal); R07.9 Chest pain, unspecified
CPT/HCPCS: 78452; 93017; A9500; A4216; J2785

== ENCOUNTER → 2024-09-18 | Outpatient (CLI) | payer MEDICARE, OTHER, SELFPAY ==
[2024-09-18 10:59] LABS: Ionized Calcium Order ORDER TUBE
[2024-09-18 12:35] LABS: Color, Urine Yellow (Yellow); Glucose, Dipstick Normal (Normal); Ketone-Dipstick Negative (Negative); Leukocyte Esterase-Dipstick 100 /ul (Negative); Nitrite-Dipstick Negative (Negative); Occult Blood-Urine Negative /ul (Negative); Protein-Dipstick Negative (Negative); Urine Bilirubin Dipstick Negative (Negative); Urine Clarity Clear (Clear); Urine Urobilinogen Normal (Normal)
[2024-09-18 12:50] LABS: Bacteria 0 SEEN /hpf (None Seen); Mucous, Urine 0 SEEN /hpf (<or=2+); Red Blood Cells-Urine 0 SEEN /hpf (0-5)
[2024-09-18 12:51] LABS: Squamous Epithelial Cells - UA 0-5 SEEN /hpf (0-5); White Blood Cells 0-5 SEEN /hpf (0-5)
[2024-09-18 12:57] LABS: Ionized Calcium 5.71 mg/dL (4.36-5.20)
[2024-09-18 13:00] LABS: PTHIN 6.8 pg/mL (18.4-80.1)
[2024-09-18 13:03] LABS: Vitamin D,25 Hydroxy 54.8 ng/mL
[2024-09-18 13:05] LABS: ALB/GLOB Ratio 1.2 RATIO (0.9-2.4); AST(SGOT) 24 U/L (15-37); Alanine Aminotransfer ALT/SGPT 47 U/L (16-61); Albumin, Serum 3.5 g/dL (3.2-5.0); Alkaline Phosphatase 94 U/L (45-117); Anion Gap 7 (5-15); BUN 26 mg/dL (7-18); BUN/Creat Ratio 12.9 RATIO (10-20); Calcium,Total 10.3 mg/dL (8.5-10.1); Chloride 105 mmol/L (98-107); Creatinine, Serum 2.01 mg/dL (0.70-1.30); EST Glomerular Filtration Rate 34 mL/min (>60); Est Glom Filt Rate - Afr Amer 42 mL/min (>60); Globulin 2.9 g/dL (2.2-4.2); Glucose 92 mg/dL (74-106); Iron 81 ug/dL (65-175); Magnesium 2.1 mg/dL (1.6-2.6); Phosphorus 3.2 mg/dL (2.5-4.9); Potassium 4.7 mmol/L (3.5-5.1); Protein, Total 6.4 g/dL (6.4-8.2); Sodium Level 139 mmol/L (136-145)
[2024-09-19 04:08] LABS: GGTP 23 IU/L (0-65)
== END | disposition home or self-care (01) ==
LOC: MFPLAB 09:56
PROVIDERS: PCP Family Medicine; Visit Provider Family Medicine
DX: N18.30 Chronic kidney disease, stage 3 unspecified (principal); R79.89 Other specified abnormal findings of blood chemistry; E83.52 Hypercalcemia
CPT/HCPCS: 36415; 80053; 81001; 82306; 82330; 82977; 83540; 83735; 83970; 84100; 84443; 87077; 87086; 87088; 87186

== ENCOUNTER → 2024-09-22 | Outpatient (CLI) | payer MEDICARE, OTHER, SELFPAY ==
[2024-09-22 08:55] LABS: Hemoglobin 11.3 g/dL (13.0-16.5); Mean Corp Hgb Conc 33.2 g/dL (32-36); Mean Corpuscular Hgb 31.5 pg (27.0-32.0); Mean Corpuscular Volume 94.7 fL (80-94); Mean Platelet Vol. 10.1 fl (6.2-12.0); Platelet Count 134 K/mm3 (150-450); RBC Distribution Width CV 13.5 % (11.6-14.6); RBC Distribution Width SD 46.7 fl (35.1-43.9); Red Blood Count 3.59 M/mm3 (4.6-6.2); White Blood Count 2.7 K/mm3 (4.4-11.0)
[2024-09-22 09:17] LABS: PTHIN 10.7 pg/mL (18.4-80.1)
[2024-09-22 09:20] LABS: Anion Gap 5 (5-15); BUN 23 mg/dL (7-18); BUN/Creat Ratio 11.2 RATIO (10-20); Calcium,Total 9.6 mg/dL (8.5-10.1); Chloride 108 mmol/L (98-107); Creatinine, Serum 2.05 mg/dL (0.70-1.30); EST Glomerular Filtration Rate 34 mL/min (>60); Est Glom Filt Rate - Afr Amer 41 mL/min (>60); Ferritin 48 ng/mL (26-388); Glucose 113 mg/dL (74-106); Iron 57 ug/dL (65-175); Potassium 4.1 mmol/L (3.5-5.1); Sodium Level 140 mmol/L (136-145)
== END | disposition home or self-care (01) ==
PROVIDERS: PCP Family Medicine; Referring Provider Family Medicine; Visit Provider Family Medicine
DX: N18.30 Chronic kidney disease, stage 3 unspecified (principal); E83.52 Hypercalcemia
CPT/HCPCS: 80048; 82728; 83540; 83970; 85027

== ENCOUNTER → 2024-09-28 | Outpatient (CLI) | payer MEDICARE, OTHER, SELFPAY ==
--- NOTE | 2024-09-28 11:56 | RAD_ITS ---
HISTORY: Amiodarone. TECHNIQUE: XR Chest 2 Views. COMPARISON: 10/14/2023. FINDINGS: CARDIOMEDIASTINAL BORDERS: Cardiac silhouette within normal limits in size. Mediastinal contour also unchanged with calcification of the aortic knob. LUNGS: Very mild linear left basilar opacity. PLEURA: No pleural effusion or pneumothorax seen. OSSEOUS STRUCTURES: Degenerative change. RAD/Chest PA and Lateral IMPRESSION: Very mild atelectasis in the left lung base. Electronically Signed: Brianna Lowe MD at 9:24 EST ,
== END | disposition home or self-care (01) ==
LOC: RAD 11:52
PROVIDERS: PCP Family Medicine; Referring Provider Nurse Practitioner Gerontology; Visit Provider Nurse Practitioner Gerontology
DX: Z79.899 Other long term (current) drug therapy (principal)
CPT/HCPCS: 71046

== ENCOUNTER → 2024-10-17 | Outpatient (CLI) | payer MEDICARE, OTHER, SELFPAY ==
[2024-10-17 12:17] LABS: Anion Gap 6 (5-15); BUN 32 mg/dL (7-18); BUN/Creat Ratio 16.4 RATIO (10-20); Calcium,Total 9.9 mg/dL (8.5-10.1); Chloride 107 mmol/L (98-107); Creatinine, Serum 1.95 mg/dL (0.70-1.30); EST Glomerular Filtration Rate 36 mL/min (>60); Est Glom Filt Rate - Afr Amer 43 mL/min (>60); Glucose 101 mg/dL (74-106); Potassium 4.1 mmol/L (3.5-5.1); Sodium Level 139 mmol/L (136-145)
== END | disposition home or self-care (01) ==
LOC: MFPLAB 09:04
PROVIDERS: PCP Family Medicine; Referring Provider Family Medicine; Visit Provider Family Medicine
DX: N18.30 Chronic kidney disease, stage 3 unspecified (principal)
CPT/HCPCS: 36415; 80048

== ENCOUNTER → 2024-10-18 | Outpatient (CLI) | payer MEDICARE, OTHER, SELFPAY ==
--- NOTE | 2024-10-18 14:40 | CT_ITS ---
STUDY: CT CHEST, ABDOMEN T PELVIS WITH CONTRAST REASON FOR EXAM: Male, 79 years old. LOW KIDNEY FX/HYPERCALCEMIA RADIATION DOSAGE (If Supplied By Facility): CTDIvol = ( 12.73 ) mGy, DLP = ( 1022.95 ) mGycm TECHNIQUE: Transaxial imaging was performed following intravenous administration of Oral and amp; IV Readi-CAT and amp; 100mL Isovue-300. The protocol utilizes one or more of the following dose reduction techniques: automated exposure control, adjustment of mA and/or kV according to patient size,and/or use of iterative reconstruction technique. COMPARISON: No relevant prior comparison study available FINDINGS: CHEST The lungs are normal. There is no demonstrated pleural abnormality. Normal heart and pericardium. Normal mediastinum. Normal hilar regions. Normal unenhanced pulmonary arteries. Normal aorta arch and descending thoracic aorta. Normal osseous structures. There is no demonstrated abnormality of the visualized upper abdomen. ABDOMEN The visualized lung bases are unremarkable. The visualized portions of the heart are within normal limits. Multiple liver cysts, the largest measures 2.6 cm. Normal gallbladder and extrahepatic biliary system. Normal spleen. Normal pancreas. Normal bilateral adrenal glands. Bilateral renal cysts, the largest measures approximately 4.5 cm. Normal visualized stomach. Normal small intestine. There are multiple colonic diverticula consistent with diverticulosis. The appendix is visualized and appears normal. Normal abdominal aorta. Normal inferior vena cava. Normal retroperitoneum. Normal abdominal wall. Normal osseous structures. PELVIS Normal urinary bladder. Normal visualized small intestine. Normal visualized colon. There is no pelvic fluid. There is no pelvic lymphadenopathy or mass lesion. Normal visualized pelvic arteries. Normal abdominal wall. There are diffuse degenerative changes of the visualized lumbar spine. CT/CT Chest, Abd, Pel w/Contrast IMPRESSION: No acute abnormality in the abdomen or pelvis. There is no evidence of hydronephrosis. Electronically Signed: Jm Cardoza MD at 7:30 EST ,
== END | disposition home or self-care (01) ==
LOC: CT 14:39
PROVIDERS: PCP Family Medicine; Referring Provider Family Medicine; Visit Provider Family Medicine
DX: E83.52 Hypercalcemia (principal)
CPT/HCPCS: 71260; 74177; Q9967

== ENCOUNTER → 2024-10-23 | Outpatient (CLI) | payer MEDICARE, OTHER, SELFPAY ==
[2024-10-23 13:02] LABS: Free T3 1.9 pg/mL (2.18-3.98); T4 Free Direct 1.76 ng/dL (0.76-1.46); T4 Total, Thyroxin 14.2 ug/dL (4.5-12.1)
[2024-10-25 16:08] LABS: PROEL- A/G Ratio 1.6 (0.7-1.7); PROEL- Albumin 3.6 g/dL (2.9-4.4); PROEL- Alpha-1 Globulin 0.2 g/dL (0.0-0.4); PROEL- Alpha-2 Globulin 0.6 g/dL (0.4-1.0); PROEL- Beta Globulin 0.9 g/dL (0.7-1.3); PROEL- Gamma Globulin 0.6 g/dL (0.4-1.8); PROEL- Globulin, Total 2.3 g/dL (2.2-3.9); PROEL- TOTAL PROTEIN 5.9 g/dL (6.0-8.5); PROEL-M-Spike Not Observed g/dL (Not Observed); PROELU- Albumin, Urine 51.5 % (.); PROELU- Alpha-1-Globulin,Ur 5.6 % (.); PROELU- Alpha-2-Globulin,Ur 11.9 % (.); PROELU- Beta Globulin, Ur 16.7 % (.); PROELU- Gamma Globulin, Ur 14.4 % (.); Total Protein, Ur 4.1 mg/dL (Not Estab.)
== END | disposition home or self-care (01) ==
LOC: MFPLAB 09:28
PROVIDERS: PCP Family Medicine; Referring Provider Family Medicine; Visit Provider Family Medicine
DX: E83.52 Hypercalcemia (principal)
CPT/HCPCS: 36415; 84165; 84166; 84436; 84439; 84443; 84481

== ENCOUNTER → 2025-01-08 | Outpatient (CLI) | payer MEDICARE, OTHER, SELFPAY ==
[2025-01-09 07:09] LABS: Anion Gap 4 (5-15); BUN 20 mg/dL (7-18); BUN/Creat Ratio 9.9 RATIO (10-20); Calcium,Total 9.5 mg/dL (8.5-10.1); Chloride 105 mmol/L (98-107); Creatinine, Serum 2.02 mg/dL (0.70-1.30); EST Glomerular Filtration Rate 34 mL/min (>60); Est Glom Filt Rate - Afr Amer 41 mL/min (>60); Free T3 2.2 pg/mL (2.18-3.98); Glucose 99 mg/dL (74-106); Potassium 4.6 mmol/L (3.5-5.1); Sodium Level 138 mmol/L (136-145); T4 Free Direct 1.92 ng/dL (0.76-1.46)
[2025-01-13 00:07] LABS: T3 Reverse 51.1 ng/dL (9.2-24.1); Thyroid Peroxidase AB < 9 IU/mL (0-34)
== END | disposition home or self-care (01) ==
LOC: MFPLAB 09:02
PROVIDERS: PCP Family Medicine; Referring Provider Family Medicine; Visit Provider Family Medicine
DX: E83.52 Hypercalcemia (principal)
CPT/HCPCS: 36415; 80048; 84439; 84443; 84481; 84482; 86376

== ENCOUNTER → 2025-10-04 | Outpatient (CLI) | payer MEDICARE, OTHER, SELFPAY ==
--- OUTSIDE RECORDS SUMMARY | 2025-10-04 07:07 | XMS RPT_ITS | CCD ---
Author Organization [facility] Care Team Providers Care Policy Advisor Name Role Phone Dr. Reilly Yan Primary Care Provider [phone] Dr. Reilly Yan Referring Provider Dr. Reilly Yan Other Provider [phone] Bakari Pelaez Attending Provider [phone] Donna Coleman Attending Provider Unavailable Dr. Lasha Wright Attending Provider [phone] Dr. Reilly Yan Primary Care Provider Dr. Reilly Yan Referring Provider Ryder GUM SCORING MACHINE OPERATOR GUM SCORING MACHINE OPERATOR-C Alecia Attending Provider Dr. Reilly Yan Primary Care Provider Dr. Reilly Yan Referring Provider Ryder GUM SCORING MACHINE OPERATOR, GUM SCORING MACHINE OPERATOR-C Alecia Attending Provider Dr. Reilly Yan Primary Care Provider Dr. Reilly Yan Referring Provider Ryder GUM SCORING MACHINE OPERATOR GUM SCORING MACHINE OPERATOR-C Alecia Attending Provider Dr. Lasha Wright Attending Provider [phone] Dr. Lasha Wright Referring Provider [phone] Dr. Lasha Wright Other Provider Ryder GUM SCORING MACHINE OPERATOR, GUM SCORING MACHINE OPERATOR-C Alecia Other Provider [phone] Dr. Gabi España Attending Provider [facility] e Dr. Pascual Yan Primary Care Provider [phone] Dr. Lasha Wright Attending Provider [phone] Dr. Lasha Wright Referring Provider [phone] Dr. Lasha Wright Other Provider Ryder GUM SCORING MACHINE OPERATOR, GUM SCORING MACHINE OPERATOR-C Alecia Other Provider [phone] Dr. Gabi España Attending Provider Unavailabl e Ryder GUM SCORING MACHINE OPERATOR, GUM SCORING MACHINE OPERATOR-C Alecia Attending Provider Dr. Pascual Yan Referring Provider Dr. Pascual Yan Primary Care Provider [phone] Dr. Lasha Wright Attending Provider [phone] Yuriy COLEMAN, Dr. Garner Primary Care Provider Yuriy COLEMAN, Dr. Garner Attending Provider Yuriy COLEMAN, Dr. Garner Referring Provider Ryder GUM SCORING MACHINE OPERATOR-C, Alecia Attending Provider [phone] Ryder GUM SCORING MACHINE OPERATOR-C, Alecia Referring Provider [phone] Ibrahima COLEMAN, Dr. Jacobson Attending Provider Ibrahima COLEMAN, Dr. Jacobson Referring Provider Ranney, Christopher Primary Care Unavailable China Sanchez Attending Unavail able Ranney, Christopher Referring Unavailable Alecia Soler NP Attending Unavailable Ranney, Christopher Primary Care Unavailable Ranney, Christopher Referring Unavailable Ranney, Christopher Primary Care Unavailable Ranney, Christopher Attending Unavailable Ranney, Christopher Referring Unavailable Ranney, Christopher Primary Care Unavailable China Sanchez Attending Unavail able Ranney, Christopher Referring Unavailable Ranney, Christopher Primary Care Unavailable JOHNNY, NA1 Attending Unavailable JOHNNY, NA1 Referring Unavailable Ranney, Christopher Referring Unavailable Ranney, Christopher Primary Care Unavailable Ranney, Christopher Attending Unavailable Ryder GUM SCORING MACHINE OPERATOR, Alecia Attending Unavailable Ryder GUM SCORING MACHINE OPERATOR, Alecia Referring Unavailable Ranney, Christopher Primary Care Unavailable Ranney, Christopher Primary Care Unavailable Ranney, Christopher Attending Unavailable Ranney, Christopher Referring Unavailable Ranney, Christopher Primary Care Unavailable Kavon Alexandra Attending Unavailable Kavon Alexandra Referring Unavailable Ranney, Christopher Primary Care Unavailable Ranney, Christopher Attending Unavailable Ranney, Christopher Referring Unavailable Allergies Allergy Classification Reported Allergen(s) Allergy Type Date of Onset Reaction(s) Facility (9 sources) house dust allergenic extract Drug Allergy 2 upper respiratory symptoms [facility] (9 sources) Pollen Allergy to substance 2 uupper respiratory symptoms [facility] (1 source) Simvastatin Drug Allergy 4 Upset Stomach [facility] (1 source) house dust allergenic extract Drug Allergy 5 [facility] (1 source) Pollen Drug allergy (disorder) 5 [facility] (1 source) Simvastatin Drug Allergy 5 [facility] Medications Current Medications Medication Drug Class(es) Dates Sig (Normalized) Sig (Original) amiodarone hydrochloride 200 mg oral tablet (7 sources) Antiarrhythmic Start: 04-04-2024 End: 05-02-2024 Amiodarone 200 mg tablet Active 100 mg PO DAILY May 02, 2024 10:52am Start: 10-14-2023 End: 04-04-2024 take 1 tablet by mouth once daily Amiodarone 200 mg tablet Discontinued 200 mg PO DAILY October 14, 2023 12:00am April 04, 2024 10:02am amLODIPine 5 mg oral tablet (9 sources) Dihydropyridine Calcium Channel Gilberto Start: 02-10-2022 take 1 tablet by mouth once daily Amlodipine 5 mg tablet Active 5 mg PO DAILY February 09, 2022 11:00pm apixaban 5 mg oral tablet (9 sources) Factor Xa Inhibitor Start: 02-10-2022 take 1 tablet by mouth twice daily Apixaban (Eliquis) 5 mg tablet Active 5 mg PO TWICE A DAY February 09, 2022 11:00pm ascorbic acid 500 mg oral capsule (9 sources) Vitamin C Start: 01-08-2018 take 1 capsule by mouth once daily Ascorbic Acid (Vitamin C) 500 mg capsule Active 500 mg PO DAILY January 08, 2018 12:00am aspirin 81 mg chewable tablet (9 sources) Platelet Aggregation Inhibitor, Nonsteroidal Anti-inflammatory Drug Start: 09-08-2013 take 1 tablet by mouth once daily Aspirin 81 MG tablet,chewable Active 81 mg PO DAILY@08September 07, 2013 11:00pm atorvastatin 40 mg oral tablet (9 sources) HMG-CoA Reductase Inhibitor Start: 09-08-2013 take 1 tablet by mouth at bedtime Atorvastatin 40 MG tablet Active 40 mg PO AT BEDTIME September 07, 2013 11:00pm cholecalciferol 0.025 mg oral capsule (17 sources) Vitamin D Start: 12-21-2022 take 1 capsule by mouth at bedtime Cholecalciferol (Vitamin D3) (Vitamin D3) 25 mcg (1,000 unit) capsule Active 2000 U PO AT BEDTIME December 21, 2022 8:39am Start: 02-15-2018 End: 12-21-2022 take 1 capsule by mouth at bedtime Cholecalciferol (Vitamin D3) (Vitamin D3) 1,000 UNIT capsule Discontinued 1000 U PO AT BEDTIME February 14, 2018 11:00pm December 21, 2022 8:40am escitalopram 10 mg oral tablet (9 sources) Serotonin Reuptake Inhibitor Start: 05-26-2021 take 1 tablet by mouth once daily Escitalopram Oxalate 10 mg Tablet Active 10 mg PO DAILY May 25, 2021 11:00pm finasteride 5 mg oral tablet (1 source) 5-alpha Reductase Inhibitor Start: 06-12-2024 take 1 tablet by mouth once daily Finasteride 5 mg tablet Active 5 mg PO daily June 11, 2024 11:00pm fluticasone propionate 0.05 mg/actuat metered dose nasal spray (10 sources) Corticosteroid Start: 06-12-2024 take 50 ug nasal route every twelve hours as needed Fluticasone Propionate (Flonase Allergy Relief) 50 mcg/actuation spray,suspension Active 1 NMA INTRANASAL Q12H as needed June 11, 2024 11:00pm administer into each nostril Start: 09-08-2013 End: 02-10-2022 Fluticasone Propionate 1 SPR AY spray,suspension Discontinued 1 NMA NASAL DAILY NEEDED as needed for Allergies September 07, 2013 11:00pm February 10, 2022 2:46pm Start: 09-08-2013 End: 02-10-2022 Fluticasone Propionate Disco ntinued 1 SPRAY NASAL DAILY NEEDED September 08, 2013 12:00am February 10, 2022 3:46pm Fluticasone Propion-Salmeterol (9 sources) Corticosteroid, beta2-Adrenergic Agonist Start: 06-12-2024 Fluticasone Propion-Salmeterol 500-50 mcg/dose blister with device Active 1 NMA INHALATION TWICE A DAY June 11, 2024 11:00pm Start: 12-21-2022 End: 07-13-2023 Fluticasone Propion-Salmeter ol (Wixela Inhub) 100-50 mcg/dose blister with device Discontinued 1 NMA INHALATION TWICE A DAY December 21, 2022 12:00am July 13, 2023 12:10pm Start: 12-21-2022 End: 07-13-2023 Fluticasone Propion-Salmeter ol (Wixela Inhub) 100-50 mcg/dose blister with device Discontinued 1 INH INHALATION TWICE A DAY December 21, 2022 12:00am July 13, 2023 12:10pm Start: 12-21-2022 End: 07-13-2023 Fluticasone Propion-Salmeter ol (Wixela Inhub) 100-50 mcg/dose blister with device Discontinued 1 INH INHALATION TWICE A DAY December 21, 2022 1:00am July 13, 2023 1:10pm lisinopril 20 mg oral tablet (20 sources) Angiotensin Converting Enzyme Inhibitor Start: 02-10-2022 take 1 tablet by mouth once daily Lisinopril 20 mg tablet Active 20 mg PO DAILY February 09, 2022 11:00pm Start: 02-16-2018 End: 02-10-2022 take 1 tablet by mouth once daily Lisinopril 5 MG tablet Discontinued 5 mg PO DAILY May 26, 2021 8:52am February 10, 2022 2:44pm loratadine 10 mg oral tablet (9 sources) Start: 09-08-2013 take 1 tablet by mouth once daily as needed Loratadine 10 MG tablet Active 10 mg PO DAILY as needed for Allergies September 07, 2013 11:00pm metoprolol tartrate 25 mg oral tablet (17 sources) beta-Adrenergic Gilberto Start: 06-25-2022 Metoprolol Tartrate 25 mg tablet Active 12.5 mg PO TWICE A DAY June 25, 2022 10:29am Start: 06-25-2022 take 12.5 mg by mout h twice daily Metoprolol Tartrate Active 12.5 MG PO TWICE A DAY June 25, 2022 11:29am Start: 09-08-2013 End: 06-25-2022 take 1 tablet by mouth twice daily Metoprolol Tartrate 25 MG tablet Discontinued 25 mg PO TWICE A DAY September 07, 2013 11:00pm June 25, 2022 10:30am Luquillo-3 Fatty Acids-Fish Oil (8 sources) Start: 09-08-2013 Luquillo-3 Fatty Acids-Fish Oil Active 2 EACH PO DAILY September 08, 2013 8:57am Start: 09-08-2013 Luquillo-3 Fatty Acids-Fish Oil Active 2 EACH PO DAILY September 07, 2013 11:00pm Start: 09-08-2013 Luquillo-3 Fatty Acids-Fish Oil Active 2 EACH PO DAILY September 08, 2013 12:00am Luquillo-3 Fatty Acids-Fish Oil 1 EACH capsule (1 source) Start: 09-08-2013 Luquillo-3 Fatty Acids-Fish Oil 1 EACH capsule Active 2 NMA PO DAILY September 07, 2013 11:00pm omeprazole 40 mg delayed release oral capsule (18 sources) Proton Pump Inhibitor Start: 02-10-2022 take 1 capsule by mouth once daily Omeprazole 40 mg capsule,delayed release(DR/EC) Active 40 mg PO DAILY February 09, 2022 11:00pm Start: 09-08-2013 End: 02-10-2022 take 1 capsule by mouth at bedtime Omeprazole 20 MG capsule Discontinued 20 mg PO AT BEDTIME September 07, 2013 11:00pm February 10, 2022 2:45pm Completed/Discontinued Medications Medication Drug Class(es) Dates Sig (Normalized) Sig (Original) [id number] 200 actuat albuterol 0.09 mg/actuat metered dose inhaler (9 sources) beta2-Adrenergic Agonist Start: 01-08-2018 End: 02-15-2018 Albuterol Sulfate 90 mcg/actuation HFA aerosol inhaler Discontinued 2 NMA INHALATION EVERY 6 HOURS 6.7 January 08, 2018 12:00am February 15, 2018 11:10am administer with spacer Start: 01-08-2018 End: 02-15-2018 take 1 puff(s) by inhalation every six hours Albuterol Sulfate Discontinued 2 PUFF INHALATION EVERY 6 HOURS 6.7 January 08, 2018 1:00am February 15, 2018 12:10pm administer with spacer furosemide 40 mg oral tablet (8 sources) Loop Diuretic Start: 07-13-2023 End: 10-14-2023 take 1 tablet by mouth once daily Furosemide (Lasix) 40 mg tablet Discontinued 40 mg PO DAILY 5 July 12, 2023 11:00pm October 14, 2023 1:04pm 24 hr metFORMIN hydrochloride 500 mg extended release oral tablet (9 sources) Biguanide Start: 01-08-2018 End: 09-28-2024 take 1 tablet by mouth once daily Metformin 500 mg tablet extended release 24 hr Discontinued 500 mg PO DAILY 90 90 January 08, 2018 12:00am September 28, 2024 11:23am predniSONE 20 mg oral tablet (9 sources) Start: 01-08-2018 End: 01-15-2018 take 1 tablet by mouth once daily at mealtime Prednisone 20 mg tablet Discontinued 20 mg PO .COMPLEX 10 7 January 08, 2018 12:00am January 14, 2018 12:00am January 15, 2018 12:07am 20 mg PO 2 pills daily x 3 days, then 1 pill daily x 4 days; administer with food or milk Problems Active Problems Problem Classification Problem Date Documented Date Episodic/Chronic Cardiac dysrhythmias (20 sources) Atrial fibrillation; Translations: [Unspecified atrial fibrillation] Onset: 10-15-2021 Chronic Chronic kidney disease (1 source) Chronic kidney disease; Translations: [Chronic kidney disease, stage 3 unspecified] Onset: 11-16-2024 Disorders of lipid metabolism (18 sources) Hyperlipidemia; Translations: [Hyperlipidemia, unspecified] 02-15-2018 Chronic Esophageal disorders (9 sources) Gastroesophageal reflux disease; Translations: [Gastro-esophageal reflux disease without esophagitis] 02-19-2022 Chronic Essential hypertension (20 sources) Essential hypertension; Translations: [Essential (primary) hypertension] Onset: 09-20-2025 Chronic Headache; including migraine (1 source) Headache; including migraine; Translations: [Headache, unspecified] Onset: 09-20-2025 Malaise and fatigue (14 sources) Fatigue; Translations: [Other fatigue] 07-13-2023 Episodic Nonspecific chest pain (1 source) Chest pain; Translations: [Chest pain, unspecified] 06-12-2024 Episodic Other aftercare (4 sources) Drug therapy finding; Translations: [Other mcc (current) drug therapy] 02-29-2024 Episodic Other aftercare (1 source) Other termite technician (current) drug therapy; Translations: [Other termite technician (current) drug therapy] Onset: 09-20-2025 Episodic Other lower respiratory disease (8 sources) Dyspnea; Translations: [Dyspnea, unspecified] 07-13-2023 Episodic Other lower respiratory disease (4 sources) Dyspnea, unspecified; Translations: [Other respiratory abnormalities] 07-13-2023 Episodic Other nutritional; endocrine; and metabolic disorders (1 source) Hypercalcemia; Translations: [Hypercalcemia] Onset: 01-20-2025 Chronic Other screening for suspected conditions (not mental disorders or infectious disease) (9 sources) Patient encounter status; Translations: [Encounter for screening for malignant neoplasm of colon] 02-10-2022 Episodic Residual codes; unclassified (9 sources) Obstructive sleep apnea syndrome; Translations: [Obstructive sleep apnea (adult) (pediatric)] 02-19-2022 Chronic Residual codes; unclassified (4 sources) History of cardioversion; Translations: [Personal history of other medical treatment] 11-25-2023 Episodic Unclassified (1 source) Other persistent atrial fibrillation; Translations: [Other persistent atrial fibrillation] Onset: 09-28-2024 Past or Other Problems Problem Classification Problem Date Documented Date Episodic/Chronic Other circulatory disease (9 sources) History of cerebrovascular accident; Translations: [Personal history of transient ischemic attack (TIA), and cerebral infarction without residual deficits] Onset: 11-15-2011 02-19-2022 Episodic Results Test Name Value Interpretation Reference Range Facility Cardiology Visit Reporton Cardiology Visit Report [facility] [address] [place] [address] OFFICE VISIT Date of Service: 03/22/25 MR#: [id number] Acct: [id number] Name: BEKCI INFANTE Rep #: [id number] : 1945 Provider: RAMYA Escoto Age/Sex: 79/M [place] [facility] [place] Signed HPI HPI History of Present Illness Details: This is a pleasant 79-year-old man who presents to the office today for a cardiovascular visit. He has a previous history of hypertension, normal coronary arteries following a cardiac catheterization in 2017, hyperlipidemia. He was recently noted to be in atrial fibrillation on a routine office physical. He had been complaining of significant fatigue. As part of his work-up he underwent an echocardiographic evaluation in October 2021 demonstrating an ejection fraction of 65% with mild concentric left ventricular hypertrophy and no wall motion abnormalities noted. His left atrium was mildly enlarged. He underwent a pharmacologic myocardial perfusion stress test which demonstrated no evidence of ischemia and an event monitor demonstrated 100% atrial fibrillation with a controlled ventricular response rate of 65 bpm. He underwent a successful cardioversion in March of 2022, and November of 2023. He does occasionally have palpitations and chest pain, these are not new and not any different that last time. They are infrequent. Intake Vital Signs 09/28/24 11:24 03/22/25 11:20 Height 5 ft 8 in 5 ft 8 in Weight: 170 lb BMI 25.8 BP 152/54 H Blood Pressure Location Lt brachial Position Sitting Respiration 16 Pulse 82 Pulse Source NIBP Intake Visit Reasons: 6 M FU Chief Inspector Required: No Is patient in pain?: Yes (Not a new issue but Everyday +- minutes on/off per patient.) Allergies house dust Allergy (Verified 03/22/25 11:29) upper respiratory symptoms pollen extracts Allergy (Verified 03/22/25 11:29) uupper respiratory symptoms simvastatin Adverse Reaction (Verified 03/22/25 11:29) Upset Stomach Ejection fraction %: 65 Have you fallen in the past year?: No [facility] Medical History (Updated 03/22/25 @ 11:51 by China BUI, PA) Paroxysmal A-fib Persistent atrial fibrillation New onset atrial fibrillation (10/2021) Obstructive sleep apnea Seasonal allergies Wears glasses Wears dentures Depression Anxiety Diabetes Low iron TIA (transient ischemic attack) History of hiatal hernia Gastric reflux Non-smoker Sleep apnea CPAP (continuous positive airway pressure) dependence Back pain Neck pain Limb weakness Knee pain Shortness of breath Arthritis History of stroke (2011) Surgical History History of cardioversion History of bilateral cataract extraction History of left heart catheterization (01/07/06) History of hernia repair History of transurethral resection of prostate Family History Father Prostate cancer CAD (coronary artery disease) Mother CAD (coronary artery disease) Myocardial infarction Brother Obstructive sleep apnea Brother Myocardial infarction CAD (coronary artery disease) History of coronary artery stent placement Obstructive sleep apnea Obesity Brother Obstructive sleep apnea Brother Obstructive sleep apnea Social History Smoking Status: Never smoker alcohol intake: never ROS Const Const: Negative for fatigue or weakness Eyes Eyes: Negative for change in vision ENT ENT: Negative for dizziness or balance problems Cardio Chest Pain: Yes (every now and then, similar to last year. ) Palpitations: Yes (Occasionally with exertion but goes away when stopped/resting.) Edema: None Resp Respiratory: Positive for SOB with activity (with over exertion stops once a rest.); Negative for SOB at rest or SOB orthopnea SOB lying down GI GI: Negative nausea or heartburn Musc Musc: Negative for balance problems Neuro Neuro: Positive for lightheadedness (Inner ear problem, per patient.); Negative for dizziness, near syncope, syncope or weakness Endo Endo: Negative for fatigue Cardiology Exam Const Appearance: cooperative, healthy appearing, no acute distress, well developed and well groomed Nutritional Appearance: average body habitus, well nourished and overweight Orientation: alert, awake and oriented x3 Head Head: normal to inspection, normocephalic and atraumatic Ears: hearing grossly normal bilaterally and external ears normal Nose: external nose normal Face and Sinus: face symmetric Eyes General: appearance normal, both eyes and all related structures Eyelids: eyelids normal Conjunctivae: conjunctivae normal Pupils: PERRL EOM: EOM inta (more content not included)... Normal [facility] T3 Reverseon 01-13-2025 T3 REVERSE 51.1 ng/dL High 9.2-24.1 [facility] Comment on above: Order Comment: Test( s) 154192-Gyuumjm T3, Serumwas developed and its performance characteristicsdetermined by [facility]. It has not been cleared or approvedby the Food and Drug Administration.reverse T3N Performed By: #### L 3300.6900, L3300.7100 ####[facility] [address] [place], [address] Thyroid Peroxidase ABon 03-0 THYR PEROX AB < 9 Normal 0-34 [facility] Comment on above: Order Comment: Test( s) 439022-Ydonxom T3, Serumwas developed and its performance characteristicsdetermined by [facility]. It has not been cleared or approvedby the Food and Drug Administration. Result Comment: Perf ormed at: [facility] [address] [id number] Photo Print Specialist: Cece Ruiz MD, Phone: [phone] Performed at: [address] [id number] Photo Print Specialist: Merritt Rock PhD, Phone: [phone] Performed By: #### L 3300.6900, L3300.7100 ####[facility] [address] [place], [place], [address] Basic Metabolic Profile (BMP )on 01-09-2025 BUN/CRE 9.9 RATIO Low 10-20 [facility] Comment on above: Order Comment: Order Date: 11/07/24 Order Info: 0667-1 - BMP Order Info: 3051-0 - T3F Order Info: 3016-3 - TSH Order Info: 3024-7 - T4F reverse T3 Performed By: #### L [id number], L501.9520, L506.0400, L500.2500 #### [facility] [address] [place], [place], [address] CA,Total 9.5 mg/dL Normal 8.5-10.1 [facility] Comment on above: Order Comment: Order Date: 11/07/24 Order Info: 0667-1 - BMP Order Info: 3051-0 - T3F Order Info: 3016-3 - TSH Order Info: 3024-7 - T4F reverse T3 Performed By: #### L [id number], L501.9520, L506.0400, L500.2500 #### [facility] [address] [place], [place], [address] Chloride [Moles/Vol] 105 mmol/L Normal 98-107 [facility] Comment on above: Order Comment: Order Date: 11/07/24 Order Info: 0667-1 - BMP Order Info: 3051-0 - T3F Order Info: 3 - TSH Order Info: 3024-7 - T4F reverse T3 Performed By: #### L [id number], L501.9520, L506.0400, L500.2500 #### [facility] [address] [place], [address] CO2 [Moles/Vol] 29.0 mmol/L Normal 21.0-32.0 [facility] Comment on above: Order Comment: Order Date: 11/07/24 Order Info: 666-11 - BMP Order Info: 0 - T3F Order Info: 3 - TSH Order Info: 3027 - T4F reverse T3 Performed By: #### L 501.72065, L501.9520, L506.0400, L500.2500 #### [facility] [address] [place], [address] Creatinine [Mass/Vol] 2.02 mg/dL High 0.70-1.30 [facility] Comment on above: Order Comment: Order Date: 11/07/24 Order Info: 666-11 - BMP Order Info: 0 - T3F Order Info: 3 - TSH Order Info: 302-7 - T4F reverse T3 Result Comment: The validity of the calculated GFR GFRAA in patients over 70 years has not been determined. Clinical correlation is essential. Performed By: #### L 501.20460, L501.9520, L506.0400, L500.2500 #### [facility] [address] [place], [address] EST GFR - AA 41 mL/min Low >60 [facility] Comment on above: Order Comment: Order Date: 11/07/24 Order Info: 666-11 - BMP Order Info: 3051-0 - T3F Order Info: 3 - TSH Order Info: 3024-7 - T4F reverse T3 Result Comment: Afri can Tunisian GFR Calc Performed By: #### L [id number], L501.9520, L506.0400, L500.2500 #### [facility] [address] [place], [address] GAP 4 Low 5-15 [facility] Comment on above: Order Comment: Order Date: 11/07/24 Order Info: 0667- - BMP Order Info: 3051-0 - T3F Order Info: 3016-3 - TSH Order Info: 3024-7 - T4F reverse T3 Performed By: #### L [id number], L501.9520, L506.0400, L500.2500 #### [facility] [address] [place], [address] GFR/1.73 sq M.predicted among non-blacks MDRD (S/P/Bld) [Vol rate/Area] 34 mL/min/{1.73_m2} Low >60 [facility] Comment on above: Order Comment: Order Date: 11/07/24 Order Info: 666-11 - BMP Order Info: 3051-0 - T3F Order Info: 3016-3 - TSH Order Info: 3024-7 - T4F reverse T3 Result Comment: Non- GFR Calc Performed By: #### L 501.79783, L501.9520, L506.0400, L500.2500 #### [facility] [address] [place], [address] Glucose [Mass/Vol] 99 mg/dL Normal 74-106 [facility] Comment on above: Order Comment: Order Date: 11/07/24 Order Info: 666-11 - BMP Order Info: 3051-0 - T3F Order Info: 3016-3 - TSH Order Info: 3024-7 - T4F reverse T3 Performed By: #### L [id number], L501.9520, L506.0400, L500.2500 #### [facility] [address] [place], [address] Potassium [Moles/Vol] 4.6 mmol/L Normal 3.5-5.1 [facility] Comment on above: Order Comment: Order Date: 11/07/24 Order Info: 666-11 - BMP Order Info: 3051-0 - T3F Order Info: 3016-3 - TSH Order Info: 3024-7 - T4F reverse T3 Performed By: #### L 501.77499, L501.9520, L506.0400, L500.2500 #### [facility] [address] [place], [place], [address] Sodium [Moles/Vol] 138 mmol/L Normal 136-145 [facility] Comment on above: Order Comment: Order Date: 11/07/24 Order Info: 666-11 - BMP Order Info: 3051-0 - T3F Order Info: 301-3 - TSH Order Info: 3024-7 - T4F reverse T3 Performed By: #### L 501.66313, L501.9520, L506.0400, L500.2500 #### [facility] [address] [place], [place], [address] Urea nitrogen [Mass/Vol] 20 mg/dL High 7-18 [facility] Comment on above: Order Comment: Order Date: 11/07/24 Order Info: 666-11 - BMP Order Info: 3051-0 - T3F Order Info: 3016-3 - TSH Order Info: 3024-7 - T4F reverse T3 Performed By: #### L 501.30595, L501.9520, L506.0400, L500.2500 #### [facility] [address] [place], [place], [address] Free T3on 01-09-2025 Free T3 [Mass/Vol] 2.2 pg/mL Normal 2.18-3.98 [facility] Comment on above: Order Comment: Order Date: 11/07/24 Order Info: 666-11 - BMP Order Info: 3051-0 - T3F Order Info: 3016-3 - TSH Order Info: 3024-7 - T4F reverse T3 Performed By: #### L 501.25133, L501.9520, L506.0400, L500.2500 #### [facility] [address] [place], [address] T4 Free Directon 01-09-2025 T4 FREE DIRECT 1.92 ng/dL High 0.76-1.46 [facility] Comment on above: Order Comment: Order Date: 11/07/24 Order Info: 0667-1 - BMP Order Info: 3051-0 - T3F Order Info: 3016-3 - TSH Order Info: 3024-7 - T4F reverse T3 Performed By: #### L 501.52257, L501.9520, L506.0400, L500.2500 #### [facility] [address] [place], [address] Thyroid Stim Hormone (TSH)on 01-09-2025 TSH 1.250 uIU/mL Normal 0.358-3.74 0 [facility] Comment on above: Order Comment: Order Date: 11/07/24 Order Info: 0667- - BMP Order Info: 3051-0 - T3F Order Info: 3016-3 - TSH Order Info: 3027 - T4F Performed By: #### L 501.29881, L501.9520, L506.0400, L500.2500 #### [facility] [address] [place], [address] Blood urea nitrogen (BUN)/cr eatinine ratioOrdered By: Pascual Yan on 01-08-2025 Urea nitrogen/Creatinine [Mass ratio] 9.9 mg/mg Low 10-20 [facility] Carbon dioxide measurementOr dered By: Pascual Yan on 01-08-2025 CO2 [Moles/Vol] 29.0 mmol/L 21.0-32.0 [facility] Chloride measurementOrdered By: Pascual Yan on 01-08-2025 Chloride [Moles/Vol] 105 mmol/L 98-107 [facility] Direct serum free thyroxine (FT4) measurementOrdered By: Pascual Yan on 01-08-2025 Free T4 [Mass/Vol] 1.92 ng/dL High 0.76-1.46 [facility] Estimated glomerular filtrat ion rate (GFR) AmericanOrdered By: Pascual Yan on 01-08-2025 Estimated GFR (MDRD) Amer 41 mL/min Low >60 [facility] Comment on above: GFR Calc Free A9Ywesyqd By: Juan David Yan on 01-08-2025 Free Triiodothyronine (T3) pg/dL 2.2 pg/mL 2.18-3.98 [facility] Glomerular filtration rate ( GFR) estimationOrdered By: Pascual Yan on 01-08-2025 Estimated GFR (MDRD) Non-Af Amer 34 mL/min Low >60 [facility] Comment on above: Non- GFR Calc Glucose measurementOrdered B y: Pascual Yan on 01-08-2025 Glucose [Mass/Vol] 99 mg/dL 74-106 [facility] Potassium measurementOrdered By: Pascual Yan on 01-08-2025 Potassium [Moles/Vol] 4.6 mmol/L 3.5-5.1 [facility] [id number] By: Pascual riggs on 01-08-2025 Reverse Triiodothyronine (T3) 51.1 ng/dL High 9.2-24.1 [facility] Serum anion gap measurementO rdered By: Pascual Yan on 01-08-2025 Anion gap [Moles/Vol] 4 mmol/L Low 5-15 [facility] Serum or plasma calcium echo urement (mass/volume)Ordered By: Pascual Yan on 01-08-2025 Calcium [Mass/Vol] 9.5 mg/dL 8.5-10.1 [facility] Serum or plasma creatinine m easurement (mass/volume)Ordered By: Pascual Yan on 01-08-2025 Creatinine [Mass/Vol] 2.02 mg/dL High 0.70-1.30 [facility] Comment on above: The validity of the calculated GFR & GFRAA in patients over 70 years has not been determined. Clinical correlation is essential. Serum or plasma urea nitroge n measurement (mass/volume)Ordered By: Pascual Yan on 02-24-2025 Urea nitrogen [Mass/Vol] 20 mg/dL High 7-18 [facility] Sodium levelOrdered By: Maicol ramsey Yuriy on 01-08-2025 Sodium [Moles/Vol] 138 mmol/L 136-145 [facility] TPO Ab QnOrdered By: Daniel Yan on 01-08-2025 Thyroid Peroxidase Antibodies < 9 IU/mL 0-34 [facility] Comment on above: Performed at: BN - [facility] [address] [id number] Director: Cece Ruiz MD, Phone: [phone] at: CB - [facility] [address] [id number] Director: Merritt Rock PhD, Phone: [phone] TSH QnOrdered By: Reilly Yan on 01-08-2025 Thyroid Stimulating Hormone (TSH) 1.250 uIU/mL 0.358-3.74 0 [facility] Protein Electro.Ur-Randomon 10-25-2024 M-SPIKE,U TNP Normal [facility] Comment on above: Order Comment: Order Date: 10/23/24Order Info: 0060- - PROELOrder Info: 0649-1 - PROELU Result Comment: NOT OBSERVED Performed By: #### L 506.0400, L501.9520, L3600.4000, L501.61672, L3100.3450, L501.9310 ####[facility] [address] [place], [address] Protein Electroph, Son 10-25 Albumin [Mass/Vol] 3.6 g/dL Normal 2.9-4.4 [facility] Comment on above: Order Comment: Order Date: 10/23/24Order Info: 0060- - PROELOrder Info: 0649-1 - PROELU Performed By: #### L 506.0400, L501.9520, L3600.4000, L501.50911, L3100.3450, L501.9310 ####[facility] [address] [place], [address] Albumin/Globulin [Mass ratio] 1.6 {ratio} Normal 0.7-1.7 [facility] Comment on above: Order Comment: Order Date: 10/23/24Order Info: 0060-1 - PROELOrder Info: 0649-1 - PROELU Performed By: #### L 506.0400, L501.9520, L3600.4000, L501.85672, L3100.3450, L501.9310 ####[facility] [address] [place], [address] ALPHA-1 GLOBUL 0.2 g/dL Normal 0.0-0.4 [facility] Comment on above: Order Comment: Order Date: 10/23/24Order Info: 0- - PROELOrder Info: 0649- - PROELU Performed By: #### L 506.0400, L501.9520, L3600.4000, L501.09429, L3100.3450, L501.9310 ####[facility] [address] [place], [address] ALPHA-2 GLOBUL 0.6 g/dL Normal 0.4-1.0 [facility] Comment on above: Order Comment: Order Date: 10/23/24Order Info: 0- - PROELOrder Info: 0649-1 - PROELU Performed By: #### L 506.0400, L501.9520, L3600.4000, L501.77593, L3100.3450, L501.9310 ####[facility] [address] [place], [address] BETA GLOBULIN 0.9 g/dL Normal 0.7-1.3 [facility] Comment on above: Order Comment: Order Date: 10/23/24Order Info: 0060-1 - PROELOrder Info: 0649-1 - PROELU Performed By: #### L 506.0400, L501.9520, L3600.4000, L501.22445, L3100.3450, L501.9310 ####[facility] [address] [place], [address] GAMMA GLOBULIN 0.6 g/dL Normal 0.4-1.8 [facility] Comment on above: Order Comment: Order Date: 10/23/24Order Info: 0060-1 - PROELOrder Info: 0649-1 - PROELU Performed By: #### L 506.0400, L501.9520, L3600.4000, L501.03662, L3100.3450, L501.9310 ####[facility] [address] [place], [address] Globulin (S) [Mass/Vol] 2.3 g/dL Normal 2.2-3.9 [facility] Comment on above: Order Comment: Order Date: 10/23/24Order Info: 59- - PROELOrder Info: 0649-1 - PROELU Performed By: #### L 506.0400, L501.9520, L3600.4000, L501.02869, L3100.3450, L501.9310 ####[facility] [address] [place], [address] INTERPRETATION Comment Normal . [facility] Comment on above: Order Comment: Order Date: 10/23/24Order Info: 0-1 - PROELOrder Info: 0649-1 - PROELU Result Comment: Prot ein electrophoresis scan will follow via computer, mail, or powder room attendant delivery. Performed By: #### L 506.0400, L501.9520, L3600.4000, L501.17239, L3100.3450, L501.9310 ####[facility] [address] [place], [address] M-SPIKE Not Observed Normal Not Observed [facility] Comment on above: Order Comment: Order Date: 10/23/24Order Info: 0060-1 - PROELOrder Info: 0649-1 - PROELU Performed By: #### L 506.0400, L501.9520, L3600.4000, L501.93681, L3100.3450, L501.9310 ####[facility] [address] [place], [place], [address] NOTE: Comment Normal . [facility] Comment on above: Order Comment: Order Date: 10/23/24Order Info: 0- - PROELOrder Info: 0649- - PROELU Result Comment: The SPE pattern appears unremarkable. Evidence of monoclonal protein is not apparent. Performed By: #### L 506.0400, L501.9520, L3600.4000, L501.61065, L3100.3450, L501.9310 ####[facility] [address] [place], [place], [address] Protein [Mass/Vol] 5.9 g/dL Low 6.0-8.5 [facility] Comment on above: Order Comment: Order Date: 10/23/24Order Info: 59-11 - PROELOrder Info: 0649 - PROELU Performed By: #### L 506.0400, L501.9520, L3600.4000, L501.89399, L3100.3450, L501.9310 ####[facility] [address] [place], [place], [address] Addendum DocumentOrdered By: Pascual Yan on 10-23-2024 Protein Electrophoresis Note Comment . [facility] Comment on above: The SPE pattern appe ars unremarkable. Evidence ofmonoclonal protein is not apparent. Albumin Elph (U) [Mass fract ion]Ordered By: Pascual Yan on 10-23-2024 Urine Albumin 51.5 % . [facility] Albumin Elph [Mass/Vol]Order ed By: Pascual Yan on 10-23-2024 Albumin [Mass/Vol] 3.6 g/dL 2.9-4.4 [facility] Albumin/Globulin Elph [Mass ratio]Ordered By: Pascual Yan on 10-23-2024 Albumin/Globulin (PEP) 1.6 0.7-1.7 [facility] Alpha 1 globulin Elph (U) [M ass fraction]Ordered By: Pascual Yan on 10-23-2024 Urine Wrofl-6-Ldamhwrk 5.6 % . [facility] Alpha 2 globulin Elph (24H U ) [Mass fraction]Ordered By: Pascual Yan on 10-23-2024 Urine Fhsdd-9-Tjzdosibv 11.9 % . [facility] Ujsqr-6-wcdhtqdp measurement by protein electrophoresisOrdered By: Pascual Yan on 10-23-2024 Vixtp-9-Euihnwrct 0.2 g/dL 0.0-0.4 [facility] Vzbdk-2-tlaahuxp measurement by protein electrophoresisOrdered By: Pascual Yan on 10-23-2024 Gxyjc-0-Wyioxtfrw 0.6 g/dL 0.4-1.0 [facility] Beta globulin Elph (24H U) [ Mass fraction]Ordered By: Pascual Yan on 10-23-2024 Urine Beta Globulin 16.7 % . [facility] Beta globulin Elph [Mass/Vol ]Ordered By: Pascual Yan on 10-23-2024 Beta Globulins 0.9 g/dL 0.7-1.3 [facility] Direct serum free thyroxine (FT4) measurementOrdered By: Pascual Yan on 10-23-2024 Free T4 [Mass/Vol] 1.76 ng/dL High 0.76-1.46 [facility] Free T3on 10-23-2024 Free T3 [Mass/Vol] 1.9 pg/mL Low 2.18-3.98 [facility] Comment on above: Order Comment: Order Date: 10/23/24Order Info: 3051-0 - A7VFmpix Info: 3026-2 - U0Orcex Info: 3016-3 - TSHOrder Info: 3024-7 - T4F Performed By: #### L 506.0400, L501.9520, L3600.4000, L501.90961, L3100.3450, L501.9310 ####[facility] [address] [place], [place], [address] Free G2Lywribj By: Juan David Yan on 10-23-2024 Free Triiodothyronine (T3) pg/dL 1.9 pg/mL Low 2.18-3.98 [facility] Gamma globulin Elph (24H U) [Mass fraction]Ordered By: Pascual Yan on 10-23-2024 Urine Gamma Globulin 14.4 % . [facility] Gamma globulin measurement b y protein electrophoresisOrdered By: Pascual Yan on 10-23-2024 Gamma Globulins 0.6 g/dL 0.4-1.8 [facility] Globulin (S) [Mass/Vol]Order ed By: Pascual Yan on 10-23-2024 Globulin (PEP) 2.3 g/dL 2.2-3.9 [facility] Protein Fractions Elph [Inte rp]Ordered By: Pascual Yan on 10-23-2024 Protein Electrophoresis Interpret Comment . [facility] Comment on above: Protein electrophore sis scan will follow via computer,mail, or powder room attendant delivery. Protein.monoclonal Elph (U) [Mass fraction]Ordered By: Pascual Yan on 10-23-2024 Ur Protein Electrophoresis M-Cole TNP [facility] Comment on above: Test not performedNO T OBSERVED Protein.monoclonal Elph [Mas s/Vol]Ordered By: Pascual Yan on 10-23-2024 Protein Electrophoresis M-Cole Not Observed g/dL Not Observed [facility] Serum or plasma protein echo urement (mass/volume)Ordered By: Pascual Yan on 10-23-2024 Protein [Mass/Vol] 5.9 g/dL Low 6.0-8.5 [facility] Serum or plasma thyroxine (T 4) measurement (mass/volume)Ordered By: Pascual Yan on 10-23-2024 T4 [Mass/Vol] 14.2 ug/dL High 4.5-12.1 [facility] T4 Free Directon 10-23-2024 T4 FREE DIRECT 1.76 ng/dL High 0.76-1.46 [facility] Comment on above: Order Comment: Order Date: 10/23/24Order Info: 3051-0 - G9HZbijq Info: 3026-2 - Y0Skhoz Info: 3016-3 - TSHOrder Info: 3024-7 - T4F Performed By: #### L 506.0400, L501.9520, L3600.4000, L501.32877, L3100.3450, L501.9310 ####[facility] [address] [place], [place], [address] T4 Total, Thyroxinon 024 T4 [Mass/Vol] 14.2 ug/dL High 4.5-12.1 [facility] Comment on above: Order Comment: Order Date: 10/23/24Order Info: 305-0 - B9DYwtpu Info: 3025-12 - N2Orxzy Info: 3013 - TSHOrder Info: 3024-05 - T4F Performed By: #### L 506.0400, L501.9520, L3600.4000, L501.99940, L3100.3450, L501.9310 ####[facility] [address] [place], [place], [address] TSH QnOrdered By: Reilly Yan on 10-23-2024 Thyroid Stimulating Hormone (TSH) 1.790 uIU/mL 0.358-3.74 0 [facility] Thyroid Stim Hormone (TSH)on 10-23-2024 TSH 1.790 uIU/mL Normal 0.358-3.74 0 [facility] Comment on above: Order Comment: Order Date: 10/23/24Order Info: 305-0 - A8JNrfgv Info: 3025-12 - R9Fgytw Info: 3016-01 - TSHOrder Info: 3024-05 - T4F Performed By: #### L 506.0400, L501.9520, L3600.4000, L501.01349, L3100.3450, L501.9310 ####[facility] [address] [place], [place], [id number] Urine protein measurement (m ass/volume)Ordered By: Pascual Yan on 10-23-2024 Protein (U) [Mass/Vol] 4.1 mg/dL Not Estab. [facility] CT Chest, Abd, Pel w/Contras ton 10-18-2024 CT Chest, Abd, Pel w/Contrast [facility] Services [address] [place], [place] [address] CT Chest, Abd, Pel w/Contrast MR#: [id number] Acct: [id number] Name: BECKI INFANTE Rep #: [id number] : 1945 M 79 From: Jm Robles PCP: Dr. Pascual Yan MD Status: [facility] CL Study: CT Chest, Abd, Pel w/Contrast Date of Exam: Exam# [id number] Ordering Dr: Pascual Yan [id number] STUDY: CT CHEST, ABDOMEN T PELVIS WITH CONTRAST REASON FOR EXAM: Male, 79 years old. LOW KIDNEY FX/HYPERCALCEMIA RADIATION DOSAGE (If Supplied By Facility): CTDIvol = ( 12.73 ) mGy, DLP = ( 1022.95 ) mGycm TECHNIQUE: Transaxial imaging was performed following intravenous administration of Oral and amp; IV Readi-CAT and amp; 100mL Isovue-300. The protocol utilizes one or more of the following dose reduction techniques: automated exposure control, adjustment of mA and/or kV according to patient size,and/or use of iterative reconstruction technique. COMPARISON: No relevant prior comparison study available FINDINGS: CHEST The lungs are normal. There is no demonstrated pleural abnormality. Normal heart and pericardium. Normal mediastinum. Normal hilar regions. Normal unenhanced pulmonary arteries. Normal aorta arch and descending thoracic aorta. Normal osseous structures. There is no demonstrated abnormality of the visualized upper abdomen. ABDOMEN The visualized lung bases are unremarkable. The visualized portions of the heart are within normal limits. Multiple liver cysts, the largest measures 2.6 cm. Normal gallbladder and extrahepatic biliary system. Normal spleen. Normal pancreas. Normal bilateral adrenal glands. Bilateral renal cysts, the largest measures approximately 4.5 cm. Normal visualized stomach. Normal small intestine. There are multiple colonic diverticula consistent with diverticulosis. The appendix is visualized and appears normal. Normal abdominal aorta. Normal inferior vena cava. Normal retroperitoneum. Normal abdominal wall. Normal osseous structures. PELVIS Normal urinary bladder. Normal visualized small intestine. Normal visualized colon. There is no pelvic fluid. There is no pelvic lymphadenopathy or mass lesion. Normal visualized pelvic arteries. Normal abdominal wall. There are diffuse degenerative changes of the visualized lumbar spine. CT/CT Chest, Abd, Pel w/Contrast IMPRESSION: No acute abnormality in the abdomen or pelvis. There is no evidence of hydronephrosis. Electronically Signed: Jm Cardoza MD at 7:30 EST Reading Location ID and State: [facility] / [place] Tel , Service support , CC: Dr. Pascual Yan MD [employer]: Signed Normal [facility] Basic Metabolic Profile (BMP )on 10-17-2024 BUN/CRE 16.4 RATIO Normal 10-20 [facility] Comment on above: Order Comment: Order Date: 09/25/24 Order Info: 0667-1 - BMP Performed By: #### L 500.2500 #### [facility] [address] [place], [address] CA,Total 9.9 mg/dL Normal 8.5-10.1 [facility] Comment on above: Order Comment: Order Date: 09/25/24 Order Info: 0667-1 - BMP Performed By: #### L 500.2500 #### [facility] [address] [place], [address] Chloride [Moles/Vol] 107 mmol/L Normal 98-107 [facility] Comment on above: Order Comment: Order Date: 09/25/24 Order Info: 0667-1 - BMP Performed By: #### L 500.2500 #### [facility] [address] [place], [address] CO2 [Moles/Vol] 26.0 mmol/L Normal 21.0-32.0 [facility] Comment on above: Order Comment: Order Date: 09/25/24 Order Info: 0667-1 - BMP Performed By: #### L 500.2500 #### [facility] [address] [place], [place], [address] Creatinine [Mass/Vol] 1.95 mg/dL High 0.70-1.30 [facility] Comment on above: Order Comment: Order Date: 09/25/24 Order Info: 0667- - BMP Result Comment: The validity of the calculated GFR GFRAA in patients over 70 years has not been determined. Clinical correlation is essential. Performed By: #### L 500.2500 #### [facility] [address] [place], [address] EST GFR - AA 43 mL/min Low >60 [facility] Comment on above: Order Comment: Order Date: 09/25/24 Order Info: 0667- - BMP Result Comment: Afri can Tunisian GFR Calc Performed By: #### L 500.2500 #### [facility] [address] [place], [address] GAP 6 Normal 5-15 [facility] Comment on above: Order Comment: Order Date: 09/25/24 Order Info: 0667-1 - BMP Performed By: #### L 500.2500 #### [facility] [address] [place], [address] GFR/1.73 sq M.predicted among non-blacks MDRD (S/P/Bld) [Vol rate/Area] 36 mL/min/{1.73_m2} Low >60 [facility] Comment on above: Order Comment: Order Date: 09/25/24 Order Info: 0667-1 - BMP Result Comment: Non- GFR Calc Performed By: #### L 500.2500 #### [facility] [address] [place], [address] Glucose [Mass/Vol] 101 mg/dL Normal 74-106 [facility] Comment on above: Order Comment: Order Date: 09/25/24 Order Info: 0667-1 - BMP Result Comment: Fast ing Glucose result from 100 to 125 mg/dL suggests IMPAIRED HOMEOSTASIS per A.D.A. criteria. Performed By: #### L 500.2500 #### [facility] [address] [place], [address] Potassium [Moles/Vol] 4.1 mmol/L Normal 3.5-5.1 [facility] Comment on above: Order Comment: Order Date: 09/25/24 Order Info: 0667-1 - BMP Performed By: #### L 500.2500 #### [facility] [address] [place], [address] Sodium [Moles/Vol] 139 mmol/L Normal 136-145 [facility] Comment on above: Order Comment: Order Date: 09/25/24 Order Info: 0667-1 - BMP Performed By: #### L 500.2500 #### [facility] [address] [place], [address] Urea nitrogen [Mass/Vol] 32 mg/dL High 7-18 [facility] Comment on above: Order Comment: Order Date: 09/25/24 Order Info: 0667-1 - BMP Performed By: #### L 500.2500 #### [facility] [address] [place], [place], [address] Blood urea nitrogen (BUN)/cr eatinine ratioOrdered By: Kavon Alexandra on 10-17-2024 Urea nitrogen/Creatinine [Mass ratio] 16.4 mg/mg 10-20 [facility] Carbon dioxide measurementOr dered By: Kavon Alexandra on 10-17-2024 CO2 [Moles/Vol] 26.0 mmol/L 21.0-32.0 [facility] Chloride measurementOrdered By: Kavon Alexandra on 10-17-2024 Chloride [Moles/Vol] 107 mmol/L 98-107 [facility] Estimated glomerular filtrat ion rate (GFR) AmericanOrdered By: Kavon Alexandra on 10-17-2024 Estimated GFR (MDRD) Amer 43 mL/min Low >60 [facility] Comment on above: GFR Calc Glomerular filtration rate ( GFR) estimationOrdered By: Kavon Alexandra on 10-17-2024 Estimated GFR (MDRD) Non-Af Amer 36 mL/min Low >60 [facility] Comment on above: Non- GFR Calc Glucose measurementOrdered B y: Kavon Alexandra on 10-17-2024 Glucose [Mass/Vol] 101 mg/dL 74-106 [facility] Comment on above: Fasting Glucose resu lt from 100 to 125 mg/dL suggests IMPAIRED HOMEOSTASIS per A.D.A. criteria. Potassium measurementOrdered By: Kavon Alexandra on 10-17-2024 Potassium [Moles/Vol] 4.1 mmol/L 3.5-5.1 [facility] Serum anion gap measurementO rdered By: Kavon Alexandra on 10-17-2024 Anion gap [Moles/Vol] 6 mmol/L 5-15 [facility] Serum or plasma calcium echo urement (mass/volume)Ordered By: Kavon Alexandra on 10-17-2024 Calcium [Mass/Vol] 9.9 mg/dL 8.5-10.1 [facility] Serum or plasma creatinine m easurement (mass/volume)Ordered By: Kavon Alexandra on 10-17-2024 Creatinine [Mass/Vol] 1.95 mg/dL High 0.70-1.30 [facility] Comment on above: The validity of the calculated GFR & GFRAA in patients over 70 years has not been determined. Clinical correlation is essential. Serum or plasma urea nitroge n measurement (mass/volume)Ordered By: Kavon Alexandra on 10-17-2024 Urea nitrogen [Mass/Vol] 32 mg/dL High 7-18 [facility] Sodium levelOrdered By: Kavon Alexandra on 10-17-2024 Sodium [Moles/Vol] 139 mmol/L 136-145 [facility] Miscellaneous Lab Procedureo n 10-02-2024 MISC LAB TEST Normal [facility] Comment on above: Order Comment: Order Date: 09/22/24Order Info: 0453-1 - BHQL8Fvvsjliy: Parathyroid hormone-related peptide (PTH-rP)EDTA-- FROZEN [id number] Result Comment: TEST RESULTS LIMITS PTHrP (PTH-Related Peptide) <2.0 pmol/L This test was developed and its performance characteristics determined by [facility]. It has not been cleared or approved by the Food and Drug Administration. Reference Range: All Ages: <2.0 The PTHrP assay should not be used to exclude cancer or screen tumor patients for humoral hypercalcemia of malignancy (HHM). The results should always be assessed in conjunction with the patient's medical history, clinical examination, and other findings. If test results are clinically discordant, please contact the laboratory. TESTING PERFORMED AT [facility]. ORIGINAL REPORT ON FILE IN LAB CONTAINS ADDITIONAL TEST SITE INFORMATION. Performed By: #### L 801.1541 ####[facility] [address] [place], [address] 12 Lead EKG performed by [facility] on 09-28-2024 12 Lead EKG performed by [facility] [address] [place] [address] 12 Lead EKG performed by [facility] 09/28/24 0823 MR#: [id number] Acct: [id number] Name: BECKI INFANTE Rep #: [id number] : 1945 79 From: Alecia Soler GUM SCORING MACHINE OPERATOR GUM SCORING MACHINE OPERATOR-C Attending Dr: Alecia Soler GUM SCORING MACHINE OPERATOR-C Status: AMANUEL FARRELL Ordering Dr: Alecia Soler NP GUM SCORING MACHINE OPERATOR-C Date: 09/28/24 [place] [facility] [place] M C Admitted: [facility]12 Lead EKG performed by [facility] ECG Report Interpretation Sinus Bradycardia -First degree A-V block Veda = 252-Left axis -anterior fascicular block. -Anteroseptal infarct -age undetermined. ABNORMAL Electronically signed on 10/03/2024 at 08:28 by Lasha Wrightwood Software Version 8610 10/03/2432 Date Alecia VILLASEÑOR CC: Dr. Pascual Yan MD Date Dictated: 09/28/24822 Date Transcribed: 09/28/24822 [employer] Football Coach: FABIÁN Signed Normal [facility] Cardiology Visit Reporton Cardiology Visit Report [facility] [address] [place] [address] OFFICE VISIT Date of Service: 09/28/24 MR#: [id number] Acct: [id number] Name: BECKI INFANTE Rep #: [id number] : 1945 Provider: CHARLEEN Humphrey rts Age/Sex: 79/M Location: [facility] Status: Signed HPI HPI History of Present Illness Details: This is a pleasant 79-year-old man who presents to the office today for a cardiovascular visit. He has a previous history of hypertension, normal coronary arteries following a cardiac catheterization in 2017, hyperlipidemia. He was recently noted to be in atrial fibrillation on a routine office physical. He had been complaining of significant fatigue. As part of his work-up he underwent an echocardiographic evaluation in October 2021 demonstrating an ejection fraction of 65% with mild concentric left ventricular hypertrophy and no wall motion abnormalities noted. His left atrium was mildly enlarged. He underwent a pharmacologic myocardial perfusion stress test which demonstrated no evidence of ischemia and an event monitor demonstrated 100% atrial fibrillation with a controlled ventricular response rate of 65 bpm. He underwent a successful cardioversion in March of 2022, and November of 2023. From a cardiac standpoint, the patient is doing well. He denies any palpitations, chest pain, pressure or heaviness. He denies SOB, Orthopnea, and PND. He does not have bleeding issues; no blood in urine, stool or nosebleeds. He does acknowledge a decrease in energy level,and myalgias. He denies claudication. He does not have edema, or sudden weight gain. He denies dizziness, lightheadedness, syncopal or near syncopal episodes, and headaches. Intake Vital Signs 06/12/24 10:46 09/28/24 11:21 09/28/24 11:24 Height 5 ft 8 in 5 ft 8 in 5 ft 8 in Weight: 169 lb BMI 25.7 BP 126/58 H Blood Pressure Location Lt brachial Position Sitting Respiration 18 Pulse 61 Pulse Source Monitor Pulse Oximetry (%) 99 Intake Visit Reasons: 4 M FU Chief Inspector Required: No Is patient in pain?: No Allergies house dust Allergy (Verified 09/28/24 11:28) upper respiratory symptoms pollen extracts Allergy (Verified 09/28/24 11:28) uupper respiratory symptoms simvastatin Adverse Reaction (Verified 09/28/24 11:28) Upset Stomach Medications ???Medication ???Instructions ???Recorded ???Confirmed ???Type aspirin 81 mg chewable tablet 81 mg PO DAILY@0800 heart health 09/08/13 09/28/24 History atorvastatin 40 mg tablet 40 mg PO QHS cholesterol 09/08/13 09/28/24 History loratadine 10 mg tablet 10 mg PO DAILY PRN Allergies 09/08/13 09/28/24 History omega-3 fatty acids-fish oil 340 2 ea PO DAILY cholesterol 09/08/13 09/28/24 History mg-1,000 mg capsule ascorbic acid (vitamin C) 500 mg 500 mg PO DAILY supplement 01/08/18 09/28/24 History capsule escitalopram oxalate 10 mg tablet 10 mg PO DAILY 05/26/21 09/28/24 History amlodipine 5 mg tablet 5 mg PO DAILY 02/10/22 09/28/24 History apixaban 5 mg tablet (Eliquis) 5 mg PO BID 02/10/22 09/28/24 History lisinopril 20 mg tablet 20 mg PO DAILY 02/10/22 09/28/24 History omeprazole 40 mg capsule,delayed 40 mg PO DAILY 02/10/22 09/28/24 History release metoprolol tartrate 25 mg tablet 12.5 mg PO BID blood pressure/heart 06/25/22 09/28/24 History cholecalciferol (vitamin D3) 25 2,000 unit PO QHS supplement 12/21/22 09/28/24 History mcg (1,000 unit) capsule (Vitamin D3) amiodarone 200 mg tablet 100 mg (1/2 x 200 mg) PO DAILY 05/02/24 09/28/24 Rx decreased 04/04/24 d/t c/o fatigue #30 tabs finasteride 5 mg tablet 5 mg PO QDAY 06/12/24 09/28/24 History fluticasone 500 mcg-salmeterol 50 1 inh inhalation BID 06/12/24 09/28/24 History mcg/dose blistr powdr for inhalation fluticasone propionate 50 1 spray intranasal Q12H PRN 06/12/24 09/28/24 History mcg/actuation nasal spray,suspension (Flonase Allergy Relief) Have you fallen in the past year?: No [facility] Medical History (Reviewed 09/28/24 @ 11:28 by Alecia Soler GUM SCORING MACHINE OPERATOR, GUM SCORING MACHINE OPERATOR-C) Persistent atrial fibrillation New onset atrial fibrillation (10/2021) Obstructive sleep apnea Seasonal allergies Wears glasses Wears dentures Depression Anxiety Diabetes Low iron TIA (transient ischemic attack) History of hiatal hernia Gastric reflux Non-smoker Sleep apnea CPAP (continuous positive airway pressure) dependence Back pain Neck pain Limb weakness Knee pain Shortness of breath Arthritis History of stroke (2011) Surgical History (Reviewed 09/28/24 @ 11:28 by Alecia Soler GUM SCORING MACHINE OPERATOR, GUM SCORING MACHINE OPERATOR-C) History of cardioversion History of bilateral cataract extraction History of left heart catheterization (01/07/06) History of hernia repair History of transurethral resection of prostate Family (more content not included)... Normal [facility] Chest PA and Lateralon 09-28 Chest PA and Lateral [facility] [address] [place] [address] Chest PA and Lateral MR#: [id number] Acct: [id number] Name: BECKI INFANTE Rep #: [id number] : 1945 M 79 From: Brianna walker MD PCP: Dr. Pascual Yan MD Status: REG CLI Study: Chest PA and Lateral Date of Exam: 09/28/24 Exam# [id number] Ordering Dr: Alecia Soler NP GUM SCORING MACHINE OPERATOR- C 99:[id number] HISTORY: Amiodarone. TECHNIQUE: XR Chest 2 Views. COMPARISON: 10/14/2023. FINDINGS: CARDIOMEDIASTINAL BORDERS: Cardiac silhouette within normal limits in size. Mediastinal contour also unchanged with calcification of the aortic knob. LUNGS: Very mild linear left basilar opacity. PLEURA: No pleural effusion or pneumothorax seen. OSSEOUS STRUCTURES: Degenerative change. RAD/Chest PA and Lateral IMPRESSION: Very mild atelectasis in the left lung base. Electronically Signed: Brianna Lowe MD at 9:24 EST , CC: CHARLEEN Soler; Dr. Pascual Yan MD [employer] Coach: Signed Normal [facility] Basic Metabolic Profile (BMP )on 09-22-2024 BUN/CRE 11.2 RATIO Normal 10-20 [facility] Comment on above: Order Comment: Order Date: 05/02/24Order Info: 0667-1 - BMPOrder Info: 2498-02 - FEOrder Info: 2275-4 - FERParathyroid hormone-related peptide (PTH-rP) Performed By: #### L 509.1000, L500.2500, L503.6550, L100.0500, L503.6150 ####[facility] [address] [facility] [address] [place], [address] CA,Total 9.6 mg/dL Normal 8.5-10.1 [facility] Comment on above: Order Comment: Order Date: 05/02/24Order Info: 0667-1 - BMPOrder Info: 2498-02 - FEOrder Info: 6-4 - FERParathyroid hormone-related peptide (PTH-rP) Performed By: #### L 509.1000, L500.2500, L503.6550, L100.0500, L503.6150 ####[facility] [address] [place], [address] Chloride [Moles/Vol] 108 mmol/L High 98-107 [facility] Comment on above: Order Comment: Order Date: 05/02/24Order Info: 666- - BMPOrder Info: [id number] - FEOrder Info: 2276-4 - FERParathyroid hormone-related peptide (PTH-rP) Performed By: #### L 509.1000, L500.2500, L503.6550, L100.0500, L503.6150 ####[facility] [address] [place], [address] CO2 [Moles/Vol] 27.0 mmol/L Normal 21.0-32.0 [facility] Comment on above: Order Comment: Order Date: 05/02/24Order Info: 666-11 - BMPOrder Info: 4 - FEOrder Info: 2276-4 - FERParathyroid hormone-related peptide (PTH-rP) Performed By: #### L 509.1000, L500.2500, L503.6550, L100.0500, L503.6150 ####[facility] [address] [place], [address] Creatinine [Mass/Vol] 2.05 mg/dL High 0.70-1.30 [facility] Comment on above: Order Comment: Order Date: 05/02/24Order Info: 666-11 - BMPOrder Info: 2494 - FEOrder Info: 2276-4 - FERParathyroid hormone-related peptide (PTH-rP) Result Comment: The validity of the calculated GFR GFRAA in patients over 70 years has not been determined. Clinical correlation is essential. Performed By: #### L 509.1000, L500.2500, L503.6550, L100.0500, L503.6150 ####[facility] [address] [place], [address] EST GFR - AA 41 mL/min Low >60 [facility] Comment on above: Order Comment: Order Date: 05/02/24Order Info: 666-11 - BMPOrder Info: 2498-02 - FEOrder Info: 2276-4 - FERParathyroid hormone-related peptide (PTH-rP) Result Comment: Afri can Tunisian GFR Calc Performed By: #### L 509.1000, L500.2500, L503.6550, L100.0500, L503.6150 ####[facility] [address] [place], [address] GAP 5 Normal 5-15 [facility] Comment on above: Order Comment: Order Date: 05/02/24Order Info: 666- - BMPOrder Info: 2498-02 - FEOrder Info: 2276-4 - FERParathyroid hormone-related peptide (PTH-rP) Performed By: #### L 509.1000, L500.2500, L503.6550, L100.0500, L503.6150 ####[facility] [address] [place], [address] GFR/1.73 sq M.predicted among non-blacks MDRD (S/P/Bld) [Vol rate/Area] 34 mL/min/{1.73_m2} Low >60 [facility] Comment on above: Order Comment: Order Date: 05/02/24Order Info: 666-11 - BMPOrder Info: 2498-02 - FEOrder Info: 2276-4 - FERParathyroid hormone-related peptide (PTH-rP) Result Comment: Non- GFR Calc Performed By: #### L 509.1000, L500.2500, L503.6550, L100.0500, L503.6150 ####[facility] [address] [place], [address] Glucose [Mass/Vol] 113 mg/dL High 74-106 [facility] Comment on above: Order Comment: Order Date: 05/02/24Order Info: 666- - BMPOrder Info: 2498-02 - FEOrder Info: 2276-4 - FERParathyroid hormone-related peptide (PTH-rP) Result Comment: Fast ing Glucose result from 100 to 125 mg/dL suggests IMPAIRED HOMEOSTASIS per A.D.A. criteria. Performed By: #### L 509.1000, L500.2500, L503.6550, L100.0500, L503.6150 ####[facility] [address] [place], [address] Potassium [Moles/Vol] 4.1 mmol/L Normal 3.5-5.1 [facility] Comment on above: Order Comment: Order Date: 05/02/24Order Info: 666- - BMPOrder Info: [id number] - FEOrder Info: 2276-4 - FERParathyroid hormone-related peptide (PTH-rP) Performed By: #### L 509.1000, L500.2500, L503.6550, L100.0500, L503.6150 ####[facility] [address] [place], [address] Sodium [Moles/Vol] 140 mmol/L Normal 136-145 [facility] Comment on above: Order Comment: Order Date: 05/02/24Order Info: 666-11 - BMPOrder Info: 2498-02 - FEOrder Info: 2275-4 - FERParathyroid hormone-related peptide (PTH-rP) Performed By: #### L 509.1000, L500.2500, L503.6550, L100.0500, L503.6150 ####[facility] [address] [place], [address] Urea nitrogen [Mass/Vol] 23 mg/dL High 7-18 [facility] Comment on above: Order Comment: Order Date: 05/02/24Order Info: 666-11 - BMPOrder Info: 2498-02 - FEOrder Info: 2276-4 - FERParathyroid hormone-related peptide (PTH-rP) Performed By: #### L 509.1000, L500.2500, L503.6550, L100.0500, L503.6150 ####[facility] [address] [place], [address] Blood urea nitrogen (BUN)/cr eatinine ratioOrdered By: Pascual Yan on 09-22-2024 Urea nitrogen/Creatinine [Mass ratio] 11.2 mg/mg 10-20 [facility] CBC-Complete Blood Cnt No Di ffon 09-22-2024 Erythrocyte distribution width (RBC) [Ratio] 13.5 % Normal 11.6-14.6 [facility] Comment on above: Order Comment: Order Date: 05/02/24Order Info: [id number] - CBC Performed By: #### L 509.1000, L500.2500, L503.6550, L100.0500, L503.6150 ####[facility] [address] [place], [address] Hematocrit (Bld) [Volume fraction] 34.0 % Low 40-54 [facility] Comment on above: Order Comment: Order Date: 05/02/24Order Info: [id number] - CBC Performed By: #### L 509.1000, L500.2500, L503.6550, L100.0500, L503.6150 ####[facility] [address] [place], [address] Hemoglobin (Bld) [Mass/Vol] 11.3 g/dL Low 13.0-16.5 [facility] Comment on above: Order Comment: Order Date: 05/02/24Order Info: [id number] - CBC Performed By: #### L 509.1000, L500.2500, L503.6550, L100.0500, L503.6150 ####[facility] [address] [place], [address] MCH (RBC) [Entitic mass] 31.5 pg Normal 27.0-32.0 [facility] Comment on above: Order Comment: Order Date: 05/02/24Order Info: [id number] - CBC Performed By: #### L 509.1000, L500.2500, L503.6550, L100.0500, L503.6150 ####[facility] [address] [place], [address] MCHC (RBC) [Mass/Vol] 33.2 g/dL Normal 32-36 [facility] Comment on above: Order Comment: Order Date: 05/02/24Order Info: [id number] - CBC Performed By: #### L 509.1000, L500.2500, L503.6550, L100.0500, L503.6150 ####[facility] [address] [place], [address] MCV (RBC) [Entitic vol] 94.7 fL High 80-94 [facility] Comment on above: Order Comment: Order Date: 05/02/24Order Info: [id number] - CBC Performed By: #### L 509.1000, L500.2500, L503.6550, L100.0500, L503.6150 ####[facility] [address] [place], [address] Platelet mean volume (Bld) [Entitic vol] 10.1 fL Normal 6.2-12.0 [facility] Comment on above: Order Comment: Order Date: 05/02/24Order Info: [id number] - CBC Performed By: #### L 509.1000, L500.2500, L503.6550, L100.0500, L503.6150 ####[facility] [address] [place], [address] Platelets (Bld) [#/Vol] 134 10*3/uL Low 150-450 [facility] Comment on above: Order Comment: Order Date: 05/02/24Order Info: [id number] - CBC Performed By: #### L 509.1000, L500.2500, L503.6550, L100.0500, L503.6150 ####[facility] [address] [place], [address] RBC (Bld) [#/Vol] 3.59 10*6/uL Low 4.6-6.2 [facility] Comment on above: Order Comment: Order Date: 05/02/24Order Info: [id number] - CBC Performed By: #### L 509.1000, L500.2500, L503.6550, L100.0500, L503.6150 ####[facility] [address] [place], [address] RDW SD 46.7 fl High 35.1-43.9 [facility] Comment on above: Order Comment: Order Date: 05/02/24Order Info: [id number] - CBC Performed By: #### L 509.1000, L500.2500, L503.6550, L100.0500, L503.6150 ####[facility] [address] [place], [address] WBC (Bld) [#/Vol] 2.7 10*3/uL Low 4.4-11.0 [facility] Comment on above: Order Comment: Order Date: 05/02/24Order Info: [id number] - CBC Performed By: #### L 509.1000, L500.2500, L503.6550, L100.0500, L503.6150 ####[facility] [address] [place], [address] Carbon dioxide measurementOr dered By: Pascual Yan on 09-22-2024 CO2 [Moles/Vol] 27.0 mmol/L 21.0-32.0 [facility] Chloride measurementOrdered By: Pascual Yan on 09-22-2024 Chloride [Moles/Vol] 108 mmol/L High 98-107 [facility] Erythrocyte distribution wid th ratioOrdered By: Pascual Yan on 09-22-2024 Erythrocyte distribution width (RBC) [Ratio] 13.5 % 11.6-14.6 [facility] Erythrocyte distribution wid th standard deviationOrdered By: Pascual Yan on 09-22-2024 Erythrocyte distribution width (RBC) [Entitic vol] 46.7 fL High 35.1-43.9 [facility] Estimated glomerular filtrat ion rate (GFR) AmericanOrdered By: Pascual Yan on 09-22-2024 Estimated GFR (MDRD) Amer 41 mL/min Low >60 [facility] Comment on above: GFR Calc Ferritinon 09-22-2024 Ferritin [Mass/Vol] 48 ng/mL Normal 26-388 [facility] Comment on above: Order Comment: Order Date: 05/02/24Order Info: 0667-1 - BMPOrder Info: [id number] - FEOrder Info: 2276-4 - FERParathyroid hormone-related peptide (PTH-rP) Performed By: #### L 509.1000, L500.2500, L503.6550, L100.0500, L503.6150 ####[facility] [address] [place], [address] Ferritin measurementOrdered By: Pascual Yan on 09-22-2024 Ferritin [Mass/Vol] 48 ng/mL 26-388 [facility] Glomerular filtration rate ( GFR) estimationOrdered By: Pascual Yan on 09-22-2024 Estimated GFR (MDRD) Non-Af Amer 34 mL/min Low >60 [facility] Comment on above: Non- GFR Calc Glucose measurementOrdered B y: Pascual Yan on 09-22-2024 Glucose [Mass/Vol] 113 mg/dL High 74-106 [facility] Comment on above: Fasting Glucose resu lt from 100 to 125 mg/dL suggests IMPAIRED HOMEOSTASIS per A.D.A. criteria. Hematocrit Auto (Bld) [Volum e fraction]Ordered By: Pascual Yan on 09-22-2024 Hematocrit (Bld) [Volume fraction] 34.0 % Low 40-54 [facility] Hemoglobin measurementOrdere d By: Pascual Yan on 09-22-2024 Hemoglobin (Bld) [Mass/Vol] 11.3 g/dL Low 13.0-16.5 [facility] Intact parathyroid hormone ( iPTH) measurementOrdered By: Pascual Yan on 09-22-2024 Parathyroid Hormone (Intact) 10.7 pg/mL Low 18.4-80.1 [facility] Ironon 09-22-2024 Iron [Mass/Vol] 57 ug/dL Low 65-175 [facility] Comment on above: Order Comment: Order Date: 05/02/24Order Info: 0667-1 - BMPOrder Info: [id number] - FEOrder Info: 2276-4 - FERParathyroid hormone-related peptide (PTH-rP) Performed By: #### L 509.1000, L500.2500, L503.6550, L100.0500, L503.6150 ####[facility] [address] [place], [address] Iron (Unsp spec) [Mass/Mass] Ordered By: Pascual Yan on 09-22-2024 Iron [Mass/Vol] 57 ug/dL Low 65-175 [facility] MCV (mean corpuscular volume ) determinationOrdered By: Pascual Yan on 09-22-2024 MCV (RBC) [Entitic vol] 94.7 fL High 80-94 [facility] Mean corpuscular hemoglobin (MCH) determinationOrdered By: Pascual Yan on 09-22-2024 MCH (RBC) [Entitic mass] 31.5 pg 27.0-32.0 [facility] Mean corpuscular hemoglobin concentration (MCHC) determinationOrdered By: Pascual Yan on 09-22-2024 MCHC (RBC) [Mass/Vol] 33.2 g/dL 32-36 [facility] Mean platelet volume determi nationOrdered By: Pascual Yan on 09-22-2024 Platelet mean volume (Bld) [Entitic vol] 10.1 fL 6.2-12.0 [facility] Miscellaneous procedureOrder ed By: Pascual Yan on 09-22-2024 Miscellaneous Test See comment [facility] Comment on above: TEST RESULTS LIMITSP THrP (PTH-Related Peptide) <2.0 pmol/L This test was developed and its performance characteristics determined by [facility]. It has not been cleared or approved by the Food and Drug Administration. Reference Range: All Ages: <2.0 The PTHrP assay should not be used to exclude cancer or screen tumor patients for humoral hypercalcemia of malignancy (HHM). The results should always be assessed in conjunction with the patient's medical history, clinical examination, and other findings. If test results are clinically discordant, please contact the laboratory. TESTING PERFORMED AT [facility]. ORIGINAL REPORT ON FILE IN LAB CONTAINS ADDITIONAL TEST SITE INFORMATION. PTHINon 09-22-2024 PTH 10.7 pg/mL Low 18.4-80.1 [facility] Comment on above: Order Comment: Order Date: 05/02/24Order Info: [id number] - PTHIN Performed By: #### L 509.1000, L500.2500, L503.6550, L100.0500, L503.6150 ####[facility] [address] [place], [address] Platelet countOrdered By: Reshma Yan on 09-22-2024 Platelets (Bld) [#/Vol] 134 10*3/uL Low 150-450 [facility] Potassium measurementOrdered By: Pascual Yan on 09-22-2024 Potassium [Moles/Vol] 4.1 mmol/L 3.5-5.1 [facility] RBC Auto (Bld) [#/Vol]Ordere d By: Pascual Yan on 09-22-2024 RBC (Bld) [#/Vol] 3.59 10*6/uL Low 4.6-6.2 [facility] Serum anion gap measurementO rdered By: Pascual Yan on 09-22-2024 Anion gap [Moles/Vol] 5 mmol/L 5-15 [facility] Serum or plasma calcium echo urement (mass/volume)Ordered By: Pascual Yan on 09-22-2024 Calcium [Mass/Vol] 9.6 mg/dL 8.5-10.1 [facility] Serum or plasma creatinine m easurement (mass/volume)Ordered By: Pascual Yan on 09-22-2024 Creatinine [Mass/Vol] 2.05 mg/dL High 0.70-1.30 [facility] Comment on above: The validity of the calculated GFR & GFRAA in patients over 70 years has not been determined. Clinical correlation is essential. Serum or plasma urea nitroge n measurement (mass/volume)Ordered By: Pascual Yan on 09-22-2024 Urea nitrogen [Mass/Vol] 23 mg/dL High 7-18 [facility] Sodium levelOrdered By: Maicol Yan on 09-22-2024 Sodium [Moles/Vol] 140 mmol/L 136-145 [facility] White blood cell (WBC) count Ordered By: Pascual Yan on 09-22-2024 WBC (Bld) [#/Vol] 2.7 10*3/uL Low 4.4-11.0 [facility] Absolute lymphocyte countOrd ered By: Pascual Yan on 03-14-2024 Lymphocytes Auto (Unsp spec) [#/Vol] 0.39 10*3/uL 0.83-4.51 [facility] Automated lymphocyte count a s percentage of total leukocytesOrdered By: Pascual Yan on 03-14-2024 Lymphocytes/100 WBC Auto (Unsp spec) 12.5 % 19-41 [facility] Basophil percentageOrdered B y: Pascual Yan on 03-14-2024 Basophils/100 WBC (Bld) 1.0 % 0-1 [facility] Chloride [Moles/Vol] 105 mmol/L 98-107 [facility] Eosinophils/100 WBC (Bld) 3.5 % 0-5 [facility] Glucose [Mass/Vol] 117 mg/dL 74-106 [facility] Comment on above: Fasting Glucose resu lt from 100 to 125 mg/dL suggests IMPAIRED HOMEOSTASIS per A.D.A. criteria. Hemoglobin (Bld) [Mass/Vol] 12.5 g/dL 13.0-16.5 [facility] Monocytes/100 WBC (Bld) 15.4 % 0-10 [facility] Neutrophils (Bld) [#/Vol] 2.1 10*3/uL 2.0-7.7 [facility] Neutrophils/100 WBC (Bld) 67.6 % 47-70 [facility] Potassium [Moles/Vol] 4.2 mmol/L 3.5-5.1 [facility] Sodium [Moles/Vol] 138 mmol/L 136-145 [facility] Testosterone [Mass/Vol] 776.08 ng/dL [facility] Comment on above: CENTRAL 90% REFERENC E RANGES MALE AGE <50 197.44 - 669.58 ng/dL MALE AGE > or = 50 187.72 - 684.19 ng/dL FEMALE AGE <50 8.38 - 35.01 ng/dL FEMALE AGE > or = 50 <7.00 - 35.92 ng/dL Effective as of 06/10/21 WBC (Bld) [#/Vol] 3.1 10*3/uL 4.4-11.0 [facility] Determination of erythrocyte mean corpuscular volume (MCV)Ordered By: Pascual Yan on 03-14-2024 MCV (RBC) [Entitic vol] 94.6 fL 80-94 [facility] Erythrocyte distribution wid th ratioOrdered By: Pascual Yan on 03-14-2024 Erythrocyte distribution width (RBC) [Ratio] 13.2 % 11.6-14.6 [facility] Erythrocyte distribution wid th standard deviationOrdered By: Pascual Yan on 03-14-2024 Erythrocyte distribution width (RBC) [Entitic vol] 45.2 fL 35.1-43.9 [facility] Hematocrit Auto (Bld) [Volum e fraction]Ordered By: Pascual Yan on 03-14-2024 Hematocrit (Bld) [Volume fraction] 38.8 % 40-54 [facility] [facility] Hem[facility] in reticulocytes (mass per reticulocyte)Ordered By: Pascual Yan on 03-14-2024 Hemoglobin (Reticulocytes) [Entitic mass] 33.4 pg 30-35 [facility] Immature granulocytes/100 WB C Auto (Bld)Ordered By: Pascual Yan on 03-14-2024 Immature granulocytes/100 WBC (Bld) 0.000 % 0.0-0.9 [facility] Comment on above: IG% - Immature Granu locytes (promyelocytes, myelocytes and metamyelocytes) > 1% indicates that a LEFT SHIFT is Present. Iron measurement (mass/mass) Ordered By: Pascual Yan on 03-14-2024 Iron (Unsp spec) [Mass/Mass] 53 ug/dL 65-175 [facility] Laboratory - Chemistry and C hemistry - challengeOrdered By: Pascual Yan on 03-14-2024 CO2 [Moles/Vol] 29.0 mmol/L 21.0-32.0 [facility] Cobalamin (Vitamin B12) [Mass/Vol] 465 pg/mL 211-911 [facility] Ferritin [Mass/Vol] 45 ng/mL 26-388 [facility] Urea nitrogen/Creatinine [Mass ratio] 8.5 mg/mg 10-20 [facility] Laboratory - Hematology and Cell countsOrdered By: Pascual Yan on 03-14-2024 MCH (RBC) [Entitic mass] 30.5 pg 27.0-32.0 [facility] MCHC (RBC) [Mass/Vol] 32.2 g/dL 32-36 [facility] Nucleated RBC/100 WBC (Bld) [Ratio] 0 % 0-5 [facility] Platelet mean volume (Bld) [Entitic vol] 10.6 fL 6.2-12.0 [facility] Platelets (Bld) [#/Vol] 150 10*3/uL 150-450 [facility] No Panel InformationOrdered By: Pascual Yan on 03-14-2024 Estimated GFR (MDRD) Amer 52 mL/min >60 [facility] Comment on above: GFR Calc Estimated GFR (MDRD) Non-Af Amer 43 mL/min >60 [facility] Comment on above: Non- GFR Calc Immature Reticulocyte Fraction 9.30 % 3.00-15.90 [facility] Total Iron Binding Capacity 297 ug/dL 250-450 [facility] RBC Auto (Bld) [#/Vol]Ordere d By: Pascual Yan on 03-14-2024 RBC (Bld) [#/Vol] 4.10 10*6/uL 4.6-6.2 [facility] Reticulocytes Auto (Bld) [#/ Vol]Ordered By: Pascual Yan on 03-14-2024 Reticulocytes/100 RBC (Bld) 1.65 % 0.5-1.5 [facility] Serum or plasma calcium echo urement (mass/volume)Ordered By: Pascual Yan on 03-14-2024 Calcium [Mass/Vol] 10.1 mg/dL 8.5-10.1 [facility] Serum or plasma creatinine m easurement (mass/volume)Ordered By: Pascual Yan on 03-14-2024 Creatinine [Mass/Vol] 1.65 mg/dL 0.70-1.30 [facility] Comment on above: The validity of the calculated GFR & GFRAA in patients over 70 years has not been determined. Clinical correlation is essential. Serum or plasma urea nitroge n measurement (mass/volume)Ordered By: Pascual Yan on 03-14-2024 Urea nitrogen [Mass/Vol] 14 mg/dL 7-18 [facility] Thin prep Papanicolaou smear with manual screeningOrdered By: Pascual Yan on 03-14-2024 Thin prep Papanicolaou smear with manual screening 4 5-15 [facility] Absolute lymphocyte countOrd ered By: Alecia Soler on 02-29-2024 Lymphocytes Auto (Unsp spec) [#/Vol] 0.49 10*3/uL 0.83-4.51 [facility] Automated lymphocyte count a s percentage of total leukocytesOrdered By: Alecia Soler on 02-29-2024 Lymphocytes/100 WBC Auto (Unsp spec) 16.0 % 19-41 [facility] Basophil percentageOrdered B y: Alecia Soler on 02-29-2024 Basophils/100 WBC (Bld) 1.0 % 0-1 [facility] Chloride [Moles/Vol] 106 mmol/L 98-107 [facility] Eosinophils/100 WBC (Bld) 2.9 % 0-5 [facility] Glucose [Mass/Vol] 132 mg/dL 74-106 [facility] Comment on above: Fasting Glucose resu lt greater than or equal to 126 mg/dL suggests DIABETES MELLITUS per A.D.A. criteria. Hemoglobin (Bld) [Mass/Vol] 12.6 g/dL 13.0-16.5 [facility] Monocytes/100 WBC (Bld) 18.2 % 0-10 [facility] Neutrophils (Bld) [#/Vol] 1.9 10*3/uL 2.0-7.7 [facility] Neutrophils/100 WBC (Bld) 61.6 % 47-70 [facility] Potassium [Moles/Vol] 4.4 mmol/L 3.5-5.1 [facility] Sodium [Moles/Vol] 139 mmol/L 136-145 [facility] WBC (Bld) [#/Vol] 3.1 10*3/uL 4.4-11.0 [facility] Determination of erythrocyte mean corpuscular volume (MCV)Ordered By: Alecia Soler on 02-29-2024 MCV (RBC) [Entitic vol] 95.0 fL 80-94 [facility] Erythrocyte distribution wid th ratioOrdered By: Alecia Soler on 02-29-2024 Erythrocyte distribution width (RBC) [Ratio] 13.3 % 11.6-14.6 [facility] Erythrocyte distribution wid th standard deviationOrdered By: Alecia Soler on 02-29-2024 Erythrocyte distribution width (RBC) [Entitic vol] 46.5 fL 35.1-43.9 [facility] Hematocrit Auto (Bld) [Volum e fraction]Ordered By: Alecia Soler on 02-29-2024 Hematocrit (Bld) [Volume fraction] 38.4 % 40-54 [facility] Immature granulocytes/100 WB C Auto (Bld)Ordered By: Alecia Soler on 02-29-2024 Immature granulocytes/100 WBC (Bld) 0.300 % 0.0-0.9 [facility] Comment on above: IG% - Immature Granu locytes (promyelocytes, myelocytes and metamyelocytes) > 1% indicates that a LEFT SHIFT is Present. Laboratory - Chemistry and C hemistry - challengeOrdered By: Alecia Soler on 02-29-2024 CO2 [Moles/Vol] 29.0 mmol/L 21.0-32.0 [facility] Urea nitrogen/Creatinine [Mass ratio] 11.0 mg/mg 10-20 [facility] Laboratory - Hematology and Cell countsOrdered By: Alecia Soler on 02-29-2024 MCH (RBC) [Entitic mass] 31.2 pg 27.0-32.0 [facility] MCHC (RBC) [Mass/Vol] 32.8 g/dL 32-36 [facility] Nucleated RBC/100 WBC (Bld) [Ratio] 0 % 0-5 [facility] Platelet mean volume (Bld) [Entitic vol] 9.7 fL 6.2-12.0 [facility] Platelets (Bld) [#/Vol] 156 10*3/uL 150-450 [facility] No Panel InformationOrdered By: Alecia Soler on 02-29-2024 Estimated GFR (MDRD) Amer 53 mL/min >60 [facility] Comment on above: GFR Calc Estimated GFR (MDRD) Non-Af Amer 44 mL/min >60 [facility] Comment on above: Non- GFR Calc RBC Auto (Bld) [#/Vol]Ordere d By: Alecia Soler on 02-29-2024 RBC (Bld) [#/Vol] 4.04 10*6/uL 4.6-6.2 [facility] Serum or plasma calcium echo urement (mass/volume)Ordered By: Alecia Soler on 02-29-2024 Calcium [Mass/Vol] 9.6 mg/dL 8.5-10.1 [facility] Serum or plasma creatinine m easurement (mass/volume)Ordered By: Alecia Soler on 02-29-2024 Creatinine [Mass/Vol] 1.63 mg/dL 0.70-1.30 [facility] Comment on above: The validity of the calculated GFR & GFRAA in patients over 70 years has not been determined. Clinical correlation is essential. Serum or plasma thyroid stim ulating hormone (TSH) measurement (units/volume)Ordered By: Alecia Soler on 02-29-2024 TSH Qn 1.00 uIU/mL 0.358-3.74 [facility] Serum or plasma urea nitroge n measurement (mass/volume)Ordered By: Alecia Soler on 02-29-2024 Urea nitrogen [Mass/Vol] 18 mg/dL 7-18 [facility] Thin prep Papanicolaou smear with manual screeningOrdered By: Alecia Soler on 02-29-2024 Thin prep Papanicolaou smear with manual screening 4 5-15 [facility] Thin prep Papanicolaou smear with manual screening 1.89 ng/dL 0.76-1.46 [facility] Basophil percentageOrdered B y: Alecia Soler on 11-09-2023 Chloride [Moles/Vol] 107 mmol/L 98-107 [facility] Glucose [Mass/Vol] 119 mg/dL 74-106 [facility] Comment on above: Fasting Glucose resu lt from 100 to 125 mg/dL suggests IMPAIRED HOMEOSTASIS per A.D.A. criteria. Potassium [Moles/Vol] 4.1 mmol/L 3.5-5.1 [facility] Sodium [Moles/Vol] 138 mmol/L 136-145 [facility] Laboratory - Chemistry and C hemistry - challengeOrdered By: Alecia Soler on 11-09-2023 CO2 [Moles/Vol] 28.0 mmol/L 21.0-32.0 [facility] Urea nitrogen/Creatinine [Mass ratio] 10.0 mg/mg 10-20 [facility] No Panel InformationOrdered By: Alecia Soler on 11-09-2023 Estimated GFR (MDRD) Amer 58 mL/min >60 [facility] Comment on above: GFR Calc Estimated GFR (MDRD) Non-Af Amer 48 mL/min >60 [facility] Comment on above: Non- GFR Calc Serum or plasma calcium echo urement (mass/volume)Ordered By: Alecia Soler on 11-09-2023 Calcium [Mass/Vol] 9.3 mg/dL 8.5-10.1 [facility] Serum or plasma creatinine m easurement (mass/volume)Ordered By: Alecia Soler on 11-09-2023 Creatinine [Mass/Vol] 1.50 mg/dL 0.70-1.30 [facility] Comment on above: The validity of the calculated GFR & GFRAA in patients over 70 years has not been determined. Clinical correlation is essential. Serum or plasma urea nitroge n measurement (mass/volume)Ordered By: Alecia Soler on 11-09-2023 Urea nitrogen [Mass/Vol] 15 mg/dL 7-18 [facility] Thin prep Papanicolaou smear with manual screeningOrdered By: Alecia Soler on 11-09-2023 Thin prep Papanicolaou smear with manual screening 3 5-15 [facility] Basophil percentageOrdered B y: Alecia Soler on 07-20-2023 Chloride [Moles/Vol] 103 mmol/L 98-107 [facility] Glucose [Mass/Vol] 93 mg/dL 74-106 [facility] Potassium [Moles/Vol] 4.5 mmol/L 3.5-5.1 [facility] Sodium [Moles/Vol] 135 mmol/L 136-145 [facility] Laboratory - Chemistry and C hemistry - challengeOrdered By: Alecia Soler on 07-20-2023 CO2 [Moles/Vol] 28.0 mmol/L 21.0-32.0 [facility] Urea nitrogen/Creatinine [Mass ratio] 14.3 mg/mg 10-20 [facility] No Panel InformationOrdered By: Alecia Soler on 07-20-2023 Estimated GFR (MDRD) Amer 67 mL/min >60 [facility] Comment on above: GFR Calc Estimated GFR (MDRD) Non-Af Amer 55 mL/min >60 [facility] Comment on above: Non- GFR Calc Serum or plasma calcium echo urement (mass/volume)Ordered By: Alecia Soler on 07-20-2023 Calcium [Mass/Vol] 8.9 mg/dL 8.5-10.1 [facility] Serum or plasma creatinine m easurement (mass/volume)Ordered By: Alecia Soler on 07-20-2023 Creatinine [Mass/Vol] 1.33 mg/dL 0.70-1.30 [facility] Comment on above: The validity of the calculated GFR & GFRAA in patients over 70 years has not been determined. Clinical correlation is essential. Serum or plasma urea nitroge n measurement (mass/volume)Ordered By: Alecia Soler on 07-20-2023 Urea nitrogen [Mass/Vol] 19 mg/dL 7-18 [facility] Thin prep Papanicolaou smear with manual screeningOrdered By: Alecia Soler on 07-20-2023 Thin prep Papanicolaou smear with manual screening 4 5-15 [facility] Absolute lymphocyte countOrd ered By: Alecia Soler on 07-13-2023 Lymphocytes Auto (Unsp spec) [#/Vol] 1.15 10*3/uL 0.83-4.51 [facility] Basophil percentageOrdered B y: Reilly Yan on 07-13-2023 Bilirubin [Mass/Vol] 0.40 mg/dL 0.20-1.00 [facility] Comment on above: For patients on eltr ombopag therapy, use of Dimension [place] TBIL is not recommended. Chloride [Moles/Vol] 104 mmol/L 98-107 [facility] Cholesterol [Mass/Vol] 116 mg/dL <200 [facility] Comment on above: <200 mg/dL Desirable 200-240 mg/dL Borderline >240 mg/dL High Risk Glucose [Mass/Vol] 91 mg/dL 74-106 [facility] Potassium [Moles/Vol] 4.3 mmol/L 3.5-5.1 [facility] Protein [Mass/Vol] 6.2 g/dL 6.4-8.2 [facility] Sodium [Moles/Vol] 138 mmol/L 136-145 [facility] Triglyceride [Mass/Vol] 259 mg/dL <199 [facility] Comment on above: The drugs N-Acetylcy steine and Metamizole may falsely depress this assay.Serum Triglycerides Reference Interval Normal <150 mg/dL Borderline high 150 - 199 mg/dL High 200 - 499 mg/dL Very High > or = 500 mg/dL Basophil percentageOrdered B y: Alecia Soler on 07-13-2023 Basophils/100 WBC (Bld) 1.0 % 0-1 [facility] Eosinophils/100 WBC (Bld) 3.7 % 0-5 [facility] Neutrophils (Bld) [#/Vol] 3.2 10*3/uL 2.0-7.7 [facility] Neutrophils/100 WBC (Bld) 61.7 % 47-70 [facility] WBC (Bld) [#/Vol] 5.1 10*3/uL 4.4-11.0 [facility] Blood erythrocytes count (nu mber/volume)Ordered By: Alecia Soler on 07-13-2023 RBC (Bld) [#/Vol] 4.40 10*6/uL 4.6-6.2 [facility] Blood hemoglobin measurement (mass/volume)Ordered By: Alecia Soler on 07-13-2023 Hemoglobin (Bld) [Mass/Vol] 13.8 g/dL 13.0-16.5 [facility] Blood lymphocytes/100 leukoc ytesOrdered By: Alecia Soler on 07-13-2023 Lymphocytes/100 WBC (Bld) 22.5 % 19-41 [facility] Blood monocytes/100 leukocyt esOrdered By: Alecia Soler on 07-13-2023 Monocytes/100 WBC (Bld) 10.9 % 0-10 [facility] Blood platelet mean volumeOr dered By: Alecia Soler on 07-13-2023 Platelet mean volume (Bld) [Entitic vol] 10.7 fL 6.2-12.0 [facility] Determination of erythrocyte mean corpuscular volume (MCV)Ordered By: Alecia Soler on 07-13-2023 MCV (RBC) [Entitic vol] 94.5 fL 80-94 [facility] Hematocrit Auto (Bld) [Volum e fraction]Ordered By: Alecia Soler on 07-13-2023 Hematocrit (Bld) [Volume fraction] 41.6 % 40-54 [facility] Laboratory - Chemistry and C hemistry - challengeOrdered By: Reilly Yan on 07-13-2023 ALP [Catalytic activity/Vol] 87 U/L 45-117 [facility] ALT [Catalytic activity/Vol] 27 U/L 16-61 [facility] CO2 [Moles/Vol] 27.0 mmol/L 21.0-32.0 [facility] Globulin (S) [Mass/Vol] 2.8 g/dL 2.2-4.2 [facility] Urea nitrogen/Creatinine [Mass ratio] 11.5 mg/mg 10-20 [facility] Laboratory - Chemistry and C hemistry - challengeOrdered By: Alecia Soler on 07-13-2023 Magnesium [Mass/Vol] 2.2 mg/dL 1.6-2.6 [facility] Natriuretic peptide B (Bld) [Mass/Vol] 209.8 pg/mL 0-100 [facility] Laboratory - Hematology and Cell countsOrdered By: Alecia Soler on 07-13-2023 Erythrocyte distribution width (RBC) [Entitic vol] 46.4 fL 35.1-43.9 [facility] Erythrocyte distribution width (RBC) [Ratio] 13.3 % 11.6-14.6 [facility] Immature granulocytes/100 WBC (Bld) 0.200 % 0.0-0.9 [facility] Comment on above: IG% - Immature Granu locytes (promyelocytes, myelocytes and metamyelocytes) > 1% indicates that a LEFT SHIFT is Present. MCH (RBC) [Entitic mass] 31.4 pg 27.0-32.0 [facility] Nucleated RBC/100 WBC (Bld) [Ratio] 0 % 0-5 [facility] MCHC Auto (RBC) [Mass/Vol]Or dered By: Alecia Soler on 07-13-2023 MCHC (RBC) [Mass/Vol] 33.2 g/dL 32-36 [facility] No Panel InformationOrdered By: Reilly Yan on 07-13-2023 Estimated GFR (MDRD) Amer 69 mL/min >60 [facility] Comment on above: GFR Calc Estimated GFR (MDRD) Non-Af Amer 57 mL/min >60 [facility] Comment on above: Non- GFR Calc Thyroid Stimulating Hormone (TSH) 1.31 uIU/mL 0.358-3.74 [facility] Platelets bldOrdered By: Walter Soler on 07-13-2023 Platelets (Bld) [#/Vol] 157 10*3/uL 150-450 [facility] Serum or plasma albumin echo urement (mass/volume)Ordered By: Reilly Yan on 07-13-2023 Albumin [Mass/Vol] 3.4 g/dL 3.2-5.0 [facility] Serum or plasma albumin/glob ulin mass ratioOrdered By: Reilly Yan on 07-13-2023 Albumin/Globulin [Mass ratio] 1.2 {ratio} 0.9-2.4 [facility] Serum or plasma calcium ecoh urement (mass/volume)Ordered By: Reilly Yan on 07-13-2023 Calcium [Mass/Vol] 8.5 mg/dL 8.5-10.1 [facility] Serum or plasma cholesterol in HDL measurement (mass/volume)Ordered By: Reilly Yan on 07-13-2023 Cholesterol in HDL [Mass/Vol] 49 mg/dL >40 [facility] Comment on above: The drugs N-Acetylcy steine and Metamizole may falsely depress this assay. Reference Range HDL <40 mg/dL Low HDL Cholesterol HDL >or= 60 mg/dL High HDL Cholesterol Serum or plasma cholesterol in VLDL measurement (mass/volume)Ordered By: Reilly Yan on 07-13-2023 Cholesterol in VLDL [Mass/Vol] 52 mg/dL 5-40 [facility] Serum or plasma creatinine m easurement (mass/volume)Ordered By: Reilly Yan on 07-13-2023 Creatinine [Mass/Vol] 1.30 mg/dL 0.70-1.30 [facility] Comment on above: The validity of the calculated GFR & GFRAA in patients over 70 years has not been determined. Clinical correlation is essential. Serum or plasma low density lipoprotein (LDL) cholesterol measurement (mass/volume)Ordered By: Reilly Yan on 07-13-2023 Cholesterol in LDL [Mass/Vol] 15 mg/dL 0-130 [facility] Serum or plasma urea nitroge n measurement (mass/volume)Ordered By: Reilly Yan on 07-13-2023 Urea nitrogen [Mass/Vol] 15 mg/dL 7-18 [facility] Thin prep Papanicolaou smear with manual screeningOrdered By: Reilly Yan on 07-13-2023 Thin prep Papanicolaou smear with manual screening 16 U/L 15-37 [facility] Thin prep Papanicolaou smear with manual screening 7 5-15 [facility] Basophil percentageon 2021 Chloride [Moles/Vol] 106 mmol/L 98-107 [facility] Work Phone: Glucose [Mass/Vol] 84 mg/dL 74-106 [facility] Work Phone: Potassium [Moles/Vol] 4.5 mmol/L 3.5-5.1 [facility] Work Phone: Sodium [Moles/Vol] 138 mmol/L 136-145 [facility] Work Phone: Laboratory - Chemistry and C hemistry - challengeon 02-20-2022 CO2 [Moles/Vol] 28.0 mmol/L 21.0-32.0 [facility] Work Phone: Urea nitrogen/Creatinine [Mass ratio] 16.0 mg/mg 10-20 [facility] Work Phone: No Panel Informationon 02-20 Estimated GFR (MDRD) Amer 72 mL/min >60 [facility] Work Phone: Comment on above: GFR Calc Estimated GFR (MDRD) Non-Af Amer 60 mL/min >60 [facility] Work Phone: Comment on above: Non- GFR Calc Serum or plasma calcium echo urement (mass/volume)on 02-20-2022 Calcium [Mass/Vol] 9.2 mg/dL 8.5-10.1 [facility] Work Phone: Serum or plasma creatinine m easurement (mass/volume)on 02-20-2022 Creatinine [Mass/Vol] 1.25 mg/dL 0.70-1.30 [facility] Work Phone: Comment on above: The validity of the calculated GFR & GFRAA in patients over 70 years has not been determined. Clinical correlation is essential. Serum or plasma urea nitroge n measurement (mass/volume)on 02-20-2022 Urea nitrogen [Mass/Vol] 20 mg/dL 7-18 [facility] Work Phone: Thin prep Papanicolaou smear with manual screeningon 02-20-2022 Thin prep Papanicolaou smear with manual screening 4 5-15 [facility] Work Phone: Vital Signs Date Time Vital Sign Value Performing Clinician Faci lity 09-28-2024 11:24-0500 Body height 172.[address] Pascual Yan MD Work Phone: [facility] 09-28-2024 11:21-0500 Body mass index (BMI) [Ratio] 25.7 kg/m2 Dr. Pascual Yan MD Work Phone: [facility] 09-28-2024 11:21-0500 Body weight 76.[address] Pascual Yan MD Work Phone: [facility] 09-28-2024 11:21-0500 Diastolic blood pressure 58 mm[Hg] Dr. Pascual Yan MD Work Phone: [facility] 09-28-2024 11:21-0500 Heart rate 61 /min Dr. Pascual Yan MD Work Phone: [facility] 09-28-2024 11:21-0500 Respiratory rate 18 /min Dr. Pascual Yan MD Work Phone: [facility] 09-28-2024 11:21-0500 SaO2% (BldA) [Mass fraction] 99 % Dr. Pascual Yan MD Work Phone: [facility] 09-28-2024 11:21-0500 Systolic blood pressure 126 mm[Hg] Dr. Pascual Yan MD Work Phone: [facility] 02-29-2024 10:10-0400 Body height 172.[address] Pascual Yan Work Phone: [facility] 02-29-2024 10:04-0400 Body mass index (BMI) [Ratio] 27.5 kg/m2 Dr. Pascual Yan Work Phone: [facility] 02-29-2024 10:04-0400 Body weight 82.[address] Pascual Yan Work Phone: [facility] 02-29-2024 10:04-0400 Diastolic blood pressure 65 mm[Hg] Dr. Pascual Yan Work Phone: [facility] 02-29-2024 10:04-0400 Heart rate 59 /min Dr. Pascual Yan Work Phone: [facility] 02-29-2024 10:04-0400 Respiratory rate 18 /min Dr. Pascual Yan Work Phone: [phone] [place] [address] 02-29-2024 10:04-0400 SaO2% (BldA) [Mass fraction] 99 % Dr. Pascual Yan Work Phone: [facility] 02-29-2024 10:04-0400 Systolic blood pressure 128 mm[Hg] Dr. Pascual Yan Work Phone: [phone] [place] [address] 11-18-2023 10:40-0500 Body height 172.[address] Reilly seth Work Phone: [facility] 11-18-2023 10:40-0500 Body weight 104.[address] Reilly seth Work Phone: [phone] [address] 11-17-2023 09:15-0500 Body mass index (BMI) [Ratio] 34.9 kg/m2 Dr. Reilly Yan Work Phone: [phone] [place] [address] 10-14-2023 13:01-0500 Body height 172.[address] Reilly seth Work Phone: [phone] [place] [address] 10-14-2023 13:01-0500 Body mass index (BMI) [Ratio] 29.2 kg/m2 Dr. Reilly Yan Work Phone: [facility] 10-14-2023 13:01-0500 Body weight 87.[address] Reilly seth Work Phone: [facility] 10-14-2023 13:01-0500 Diastolic blood pressure 73 mm[Hg] Dr. Reilly Yan Work Phone: [facility] 10-14-2023 13:01-0500 Heart rate 72 /min Dr. Reilly seth Work Phone: [facility] 10-14-2023 13:01-0500 Respiratory rate 18 /min Dr. Reilly seth Work Phone: [facility] 10-14-2023 13:01-0500 SaO2% (BldA) [Mass fraction] 94 % Dr. Reilly Yan Work Phone: [facility] 10-14-2023 13:01-0500 Systolic blood pressure 128 mm[Hg] Dr. Reilly Yan Work Phone: [facility] 07-13-2023 13:08-0400 Body height 172.[address] Reilly seth Work Phone: [facility] 07-13-2023 13:08-0400 Body mass index (BMI) [Ratio] 29.5 kg/m2 Dr. Reilly Yan Work Phone: [facility] 07-13-2023 13:08-0400 Body weight 87.[address] Reilly seth Work Phone: [facility] 07-13-2023 13:08-0400 Diastolic blood pressure 71 mm[Hg] Dr. Reilly Yan Work Phone: [facility] 07-13-2023 13:08-0400 Heart rate 65 /min Dr. Reilly seth Work Phone: [facility] 07-13-2023 13:08-0400 Respiratory rate 18 /min Dr. Reilly seth Work Phone: [facility] 07-13-2023 13:08-0400 SaO2% (BldA) [Mass fraction] 96 % Dr. Reilly Yan Work Phone: [facility] 07-13-2023 13:08-0400 Systolic blood pressure 133 mm[Hg] Dr. Reilly Yan Work Phone: [facility] 02-20-2022 10:15-0400 Body height 172.[address] Reilly seth Work Phone: [facility] Work Phone: 02-20-2022 10:15-0400 Body mass index (BMI) [Ratio] 27.6 kg/m2 Dr. Reilly Yan Work Phone: [facility] Work Phone: 02-20-2022 10:15-0400 Body weight 82.[address] Reilly seth Work Phone: [facility] Work Phone: 02-20-2022 10:15-0400 Diastolic blood pressure 67 mm[Hg] Dr. Reilly Yan Work Phone: [facility] Work Phone: 02-20-2022 10:15-0400 Heart rate 54 /min Dr. Reilly seth Work Phone: [facility] Work Phone: 02-20-2022 10:15-0400 Respiratory rate 16 /min Dr. Reilly seth Work Phone: [facility] Work Phone: 02-20-2022 10:15-0400 SaO2% (BldA) [Mass fraction] 99 % Dr. Reilly Yan Work Phone: [facility] Work Phone: 02-20-2022 10:15-0400 Systolic blood pressure 147 mm[Hg] Dr. Reilly Yan Work Phone: [facility] Work Phone: Encounters Encounter Date Encounter Type Care Provider Facility Start: 09-20-2025 End: 09-20-2025 ambulatory Pascual Yan Facility:[facility] Start: 03-22-2025 End: 03-22-2025 ambulatory Pascual Yan Facility:[facility] Start: 01-08-2025 End: 01-08-[address] Pascual Yan MD Work Phone: [facility] Work Phone: Start: 01-08-2025 End: 01-08-[address] Pascual Yan MD -[facility], [facility] Start: 01-08-2025 End: 01-08-2025 ambulatory Pascual Yan Facility:[facility] Start: 10-23-2024 End: 10-23-[address] Pascual Yan MD -Laboratory, [facility] Start: 10-23-2024 End: 10-23-2024 ambulatory Pascual Yan Facility:[facility] Start: 10-18-2024 End: 10-18-[address] Pascual Yan MD -[facility], [facility] Work Phone: Start: 10-18-2024 End: 10-18-2024 ambulatory Pascual Yan Facility:[facility] Start: 10-17-2024 End: 10-17-[address] 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 Pascual Yan MD -Laboratory Work Phone: Start: 09-22-2024 End: 09-22-2024 ambulatory Pascual Yan Facility:[facility] Start: 03-14-2024 End: 03-14-[address] Pascual Yan Work Phone: [facility] Work Phone: Start: 03-14-2024 End: 03-14-[address] [facility]ascual Yan [facility] Start: 02-29-2024 End: 02-29-[address] Pascual Yan Work Phone: [facility] Work Phone: Start: 02-29-2024 End: 02-29-[address] Pascual Yan Work Phone: [facility] Work Phone: Start: 11-25-2023 End: 11-25-[address] Reilly Yan Work Phone: [facility] Work Phone: Start: 11-22-2023 Non-patient / Non-visit Dr. Reilly Yan Work Phone: [facility] Work Phone: Start: 11-22-2023 Non-patient / Non-visit Dr. Reilly Yan Work Phone: [facility] Start: 11-22-2023 End: 11-22-[address] Reilly Yan Work Phone: [facility] Work Phone: Start: 11-22-2023 End: 11-22-[address] Reilly Yan Work Phone: [facility]Cardiovascula [facility] Services Work Phone: Start: 11-18-2023 Non-patient / Non-visit Dr. Reilly Yan Work Phone: [facility] Start: 11-18-2023 End: 11-18-2023 Admission to same day surgery center Dr. Reilly Yan Work Phone: [facility]-Biological Scientist/Special Procedures Work Phone: Start: 11-11-2023 Non-patient / Non-visit Dr. Reilly Yan Work Phone: [facility] Start: 10-22-2023 End: 10-22-[address] Reilly Yan Work Phone: [facility] Work Phone: Start: 10-14-2023 End: 10-14-[address] Reilly Yan Work Phone: [facility] Work Phone: Start: 10-14-2023 End: 10-14-[address] Reilly Yan Work Phone: [facility] Work Phone: Start: 07-20-2023 End: 07-20-[address] Reilly Yan Work Phone: [facility] Work Phone: Start: 07-20-2023 End: 07-20-[address] [facility] Start: 07-15-2023 End: 07-15-[address] Reilly Yan Work Phone: [facility] Work Phone: Start: 07-15-2023 End: 07-15-[address] Reilly Yan Work Phone: [facility]-Pulmonary Services/Neurology Work Phone: Start: 07-13-2023 End: 07-13-[address] Reilly Yan Work Phone: [facility] Work Phone: Start: 07-13-2023 End: 07-13-[address] Reilly Yan Work Phone: [facility] Work Phone: Start: 02-20-2022 End: 02-20-[address] Reilly Yan Work Phone: [facility]-Laboratory Start: 02-20-2022 End: 02-20-[address] Reilly Yan Work Phone: [facility] Start: 02-10-2022 Non-patient / Non-visit Dr. Reilly Yan Work Phone: [facility] Start: 01-01-2022 Non-patient / Non-visit Dr. Reilly Yan Work Phone: [facility] Start: 01-01-2022 End: 01-01-[address] Reilly Yan Work Phone: [facility]Cardiov[facility] Procedures Date Procedure Procedure Detail Performing Clinician Start: 10-18-2024 CT of thorax, abdome n and pelvis with contrast Dr. Pascual Yan MD Work Phone: Start: 09-28-2024 X-ray of chest, PA a nd lateral views Dr. Pascual Yan MD Work Phone: Start: 09-28-2024 Evaluation of diagno stic study results Dr. Pascual Yan MD Work Phone: Start: 10-14-2023 Plain chest X-ray Dr. Keenan Yan Work Phone: Start: 01-01-2022 Nuclear Stress Test - Chemical Dr. Reilly Yan Work Phone: Plan of Treatment Date Care Activity Detail Author Start: 10-04-2025 ambulatory Ambulatory Facility:[facility] Start: 11-18-2023 Patient discharge [facility] Blood chemistry [facility] Cardioversion [facility] Patient referral [facility] Work Phone: [facility] Immunizations Immunization Date Immunization Notes Care Provider Marnie barbour 02-06-2021 Covid (Pfizer) Dr. Juan David Yan Work Phone: [facility] 01-16-2021 Covid (Pfizer) Dr. Juan David Yan Work Phone: [facility] 08-31-[address] Reilly Yan Work Phone: [facility] 09-09-[address] Reilly Yan Work Phone: [facility] Payers Date Payer Category Payer Unknown [id number] 11 2024 Self-pay [id number] 2011 Medicare [id number] 2011 Unknown [id number] 01 [id number] Unknown [id number] 2.16.8 [id number] Unknown [id number] 2.16.8 [id number] Unknown [id number] 2.16.8 [id number] Unknown [id number] 2.16.8 [id number] Unknown [id number] 2.16.8 [id number] Unknown [id number] 2.16.8 [id number] Unknown [id number] 2.16.8 [id number] Unknown [id number] 2.16.8 [id number] Unknown [id number] 2.16.8 [id number] Unknown [id number] 2.16.8 [id number] Social History Date Type Detail Facility Start: 02-20-2022 End: 02-29-2024 Tobacco smoking status NHIS Unknown if ever smoked [facility] Start: 09-08-2013 None [facility] Start: 01-04-2020 Spouse/ Signif icant Other [facility] Start: 1945 Sex Assigned At Male [facility] Start: 02-29-2024 Tobacco smoking status NHIS Never smoked tobacco (finding) [facility] Start: 01-20-2025 Sex Male (finding) [facility] Evaluation note 09-28-2024 Note Date & Type Note Facility 09-28-2024 Evaluation note Diagnosis Onset Date Resolution Essential hypertension acute No vember 2023 11:17am care home current use of amiodarone acute September 28 11:17am Persistent atrial fibrillation acute September 28 11:17am Hyperlipidemia chronic September 152023 11:17am [facility] Work Phone: Procedure note 11-18-2023 Note Date & Type Note Facility 11-18-2023 Procedure note [facility] Procedure note 11-18-2023 Note Date & Type Note Facility 11-18-2023 Procedure note [facility] Evaluation note 10-15-2021 Note Date & Type Note Facility 10-15-2021 Evaluation note Diagnosis Onset Date Essential hypertension acute New onset atrial fibrillation October, acute [facility] Work Phone: Evaluation note 10-15-2021 Note Date & Type Note Facility 10-15-2021 Evaluation note Diagnosis Onset Date Dyspnea acute Essential hypertension acute Fatigue acute New onset atrial fibrillation October, acute Hyperlipidemia [facility] Work Phone: Evaluation note 10-15-2021 Note Date & Type Note Facility 10-15-2021 Evaluation note Diagnosis Onset Date Dyspnea acute Essential hypertension acute Fatigue acute New onset atrial fibrillation October, acute Hyperlipidemia chronic Essential hypertension acute Persistent atrial fibrillation acute Hyperlipidemia [facility] Work Phone: Evaluation note Note Date & Type Note Facility Evaluation note Diagnosis Onset Date Essential hypertension acute Persistent atrial fibrillation acute Hyperlipidemia [facility] Work Phone: Evaluation note Note Date & Type Note Facility Evaluation note Diagnosis Onset Date Essential hypertension acute Fatigue acute Persistent atrial fibrillation acute Hyperlipidemia [facility] Work Phone: Reason for referral (narrative) Note Date & Type Note Facility Reason for referral (narrative) No reason for referral information available [facility] Work Phone: Chief Complaint and Reason for Visit Chief Complaint ATRIAL FIBRILLATION ATRIAL FIBRILLATION Amb Documentation afib (ranney) INT LABS Reason for Visit Essential hypertensi on New onset atrial fibrillation Chief Complaint 1 Y FU E ORDERS A FIB Reason for Visit Dyspnea Essential hypertension Fatigue New onset atrial fibrillation Hyperlipidemia Chief Complaint 1 Y FU E ORDERS A FIB INT LABS Reason for Visit Dyspnea Essential hypertension Fatigue New onset atrial fibrillation Hyperlipidemia Chief Complaint 1 Y FU E ORDERS A FIB INT LABS 3 m fu EORDERS Reason for Visit Dyspnea Essential hypertension Fatigue New onset atrial fibrillation Hyperlipidemia Essential hypertension Persistent atrial fibrillation Hyperlipidemia Chief Complaint 3 m fu EORDERS 1 WK EKG AMIODARONE PER KR A-FIB A-FIB Other persistent atrial fibrillation Other persistent atrial fibrillation Other persistent atrial fibrillation Amb Documentation S/P DCCV 1 WK EKG Reason for Visit Essential hypertensi on Persistent atrial fibrillation Hyperlipidemia Chief Complaint A-FIB A-FIB Other persistent atrial fibrillation Other persistent atrial fibrillation Other persistent atrial fibrillation Amb Documentation S/P DCCV 1 WK EKG 4-6 M FU E-ORDER Reason for Visit Essential hypertensi on Fatigue Persistent atrial fibrillation Hyperlipidemia Chief Complaint Other persistent atr ial fibrillation Amb Documentation S/P DCCV 1 WK EKG 4-6 M FU E-ORDER Reason for Visit Essential hypertensi on Fatigue Persistent atrial fibrillation Hyperlipidemia Chief Complaint Admit Date 4 M FU September 28, 2024 11:17am HYPERCALCEMIA, WORSENING KIDNEY FUNCTION October 18, 2024 2:38pm Reason for Visit Admit Date Essential hypertension September 28 11:17am 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 Hugo zee 2023 11:17am Persistent atrial fibrillation September 28, 2024 11:17am Hyperlipidemia September 28, 2024 11:17am Family History No Family History Records Found Relationship Condition Age at Onset Recorded Date/T sigrid father Malignant neoplasm of prostate Unknown Coronary artery disease Unknown mother Coronary artery disease Unknown Myocardial infarction Unknown brother Obstructive sleep apnea syndrome Unknown brother Myocardial infarction Unknown History of coronary artery stent placement Unknown Obstructive sleep apnea syndrome Unknown Obesity Unknown Advance Directives No Advanced Directives Records Found Advance Directive Response Recorded Date/ Time Advance Directives Yes September 08, 2013 2:09pm Living Will No May 26, 2021 9:53am Power of Occ Therapy Asst Yes May 26 9:53am Advance Directive Response Recorded Date/ Time Advance Directives Yes March 18, 2022 11:41am Living Will Yes March 18, 2022 11 :41am Power of Occ Therapy Asst Yes March 18, 2022 11:41am Advance Directive Response Recorded Date/ Time Advance Directives Yes March 18, 2022 10:41am Living Will Yes March 18, 2022 10 :41am Power of Occ Therapy Asst Yes March 18, 2022 10:41am Advance Directive Response Recorded Date/ Time Advance Directives on File Yes 2023 10:40am Name of Medical Power of Occ Therapy Asst Caridad Infante- November 18, 2023 10:40am Advance Directives Yes November 18, 2023 10:40am Living Will Yes November 18 10:40am Power of Occ Therapy Asst Yes November 18 10:40am Advance Directive Response Recorded Date/ Time Advance Directives on File Yes 2023 11:40am Name of Medical Power of Occ Therapy Asst Caridad Infante- November 18, 2023 11:40am Advance Directives Yes November 18, 2023 11:40am Living Will Yes November 18 11:40am Power of Occ Therapy Asst Yes November 18 11:40am Advance Directive Response Recorded Date/ Time Advance Directives Yes November 18, 2023 11:40am Living Will Yes November 18 11:40am Power of Occ Therapy Asst Yes November 18 11:40am Advance Directive Response Recorded Date/ Time Living Will Yes November 18 10:40am Power of Occ Therapy Asst Yes November 18 10:40am Advance Directives Yes November 18, 2023 10:40am Summary Purpose Additional Source Comments Goals (unrecognized section and content) Goals may be documented in a n alternate sectionGoals may be documented in an alternate sectionGoals may be documented in an alternate sectionGoals may be documented in an alternate sectionGoals may be documented in an alternate sectionGoals may be documented in an alternate sectionGoals may be documented in an alternate sectionGoals may be documented in an alternate sectionGoals may be documented in an alternate section Care Teams (unrecognized sec tion and content) Team Status: Active Member Role Status Dates Dr. Reilly Yan MD Family Provider Active Dr. Reilly Yan MD Primary Care Provider Activ e Team Status: Inactive Member Role Status Dates Dr. Reilly Yan MD Primary Care Provider, Refe rring Provider Active Alecia Soler GUM SCORING MACHINE OPERATOR, GUM SCORING MACHINE OPERATOR-C Attending Provider Active Team Status: Active Member Role Status Dates Dr. Reilly Yan MD Primary Care Provider Activ e Alecia Soler GUM SCORING MACHINE OPERATOR, GUM SCORING MACHINE OPERATOR-C Attending Provider, Referring P rovider Active Team Status: Inactive Member Role Status Dates Dr. Reilly Yan MD Primary Care Provider Activ e Alecia Soler GUM SCORING MACHINE OPERATOR, GUM SCORING MACHINE OPERATOR-C Attending Provider, Referring P rovider Active Team Status: Inactive Member Role Status Dates Dr. Reilly Yan MD Primary Care Provider, Refe rring Provider Active Dr. Lasha Wright MD Attending Provider Active Team Status: Active Member Role Status Dates Dr. Reilly Yan MD Primary Care Provider Activ e Dr. Lasha Wright MD Attending Provider, Referring Provider, Other Provider Active Team Status: Active Member Role Status Dates Dr. Reilly Yan MD Primary Care Provider Activ e Alecia Soler GUM SCORING MACHINE OPERATOR, GUM SCORING MACHINE OPERATOR-C Other Provider Active Dr. Lasha Wright MD Attending Provider Active Team Status: Active Member Role Status Dates Dr. Reilly Yan MD Primary Care Provider Activ e Alecia Soler GUM SCORING MACHINE OPERATOR, GUM SCORING MACHINE OPERATOR-C Other Provider Active Dr. Gabi España MD Attending Provider Active Team Status: Active Member Role Status Dates Dr. Reilly Yan MD Primary Care Provider Activ e Dr. Lasha Wright MD Attending Provider Active Team Status: Active Member Role Status Dates Dr. Reilly Yan MD Primary Care Provider Activ e Alecia Soelr GUM SCORING MACHINE OPERATOR, GUM SCORING MACHINE OPERATOR-C Attending Provider Active Team Status: Inactive Member Role Status Dates Dr. Reilly Yan MD Primary Care Provider Activ e Dr. Lasha Wright MD Attending Provider, Referring Pro vider Active Team Status: Active Member Role Status Dates Dr. Pascual Yan MD Family Provider Active Dr. Pascual Yan MD Primary Care Provider Acti ve Team Status: Inactive Member Role Status Dates Dr. Pascual Yan MD Primary Care Provider, Ref erring Provider Active Dr. Lasha Wrgiht MD Attending Provider Active Team Status: Inactive Member Role Status Dates Dr. Pascual Yan MD Primary Care Provider, Ref erring Provider Active Alecia Soler GUM SCORING MACHINE OPERATOR, GUM SCORING MACHINE OPERATOR-C Attending Provider Active Team Status: Active Member Role Status Dates Dr. Pascual Yan MD Primary Care Provider Acti ve Dr. Lasha Wright MD Attending Provider, Referring Provider, Other Provider Active Team Status: Active Member Role Status Dates Dr. Pascual Yan MD Primary Care Provider Acti ve Alecia Soler GUM SCORING MACHINE OPERATOR, GUM SCORING MACHINE OPERATOR-C Other Provider Active Dr. Lasha Wright MD Attending Provider Active Team Status: Active Member Role Status Dates Dr. Pascual Yan MD Primary Care Provider Acti ve Alecia Soler GUM SCORING MACHINE OPERATOR, GUM SCORING MACHINE OPERATOR-C Other Provider Active Dr. Gabi España MD Attending Provider Active Dr. Lasha Wright MD Referring Provider Active Team Status: Active Member Role Status Dates Dr. Pascual Yan MD Primary Care Provider Acti ve Dr. Lasha Wright MD Attending Provider Active Team Status: Active Member Role Status Dates Dr. Pascual Yan MD Primary Care Provider Acti ve Alecia Soler GUM SCORING MACHINE OPERATOR, GUM SCORING MACHINE OPERATOR-C Attending Provider Active Team Status: Inactive Member Role Status Dates Dr. Pascual Yan MD Primary Care Provider Acti ve Alecia Soler GUM SCORING MACHINE OPERATOR, GUM SCORING MACHINE OPERATOR-C Attending Provider, Referring P roelíasder Active Team Status: Inactive Member Role Status Dates Dr. Pascual Yan MD Primary Care Provider Acti ve Dr. Lasha Wright MD Attending Provider, Referring Pro vider Active Team Status: Inactive Member Role Status Dates Dr. Pascual Yan MD Primary Care Provider, Att ending Provider Active Team Status: Inactive Member Role Status Dates Dr. Pascual Yan MD Primary Care Provider Acti ve Start: September 22, 2024 End: September 22, 2024 Dr. Pascual Yan MD Attending Provider Active Start: September 22, 2024 End: September 22, 2024 Dr. Pascual Yan MD Referring Provider Active Start: September 22, 2024 End: September 22, 2024 Team Status: Inactive Member Role Status Dates Dr. Pascual Yan MD Primary Care Provider Acti ve Start: September 28, 2024 End: September 28, 2024 Dr. Pascual Yan MD Referring Provider Active Start: September 28, 2024 End: September 28, 2024 Alecia Soler GUM SCORING MACHINE OPERATOR, GUM SCORING MACHINE OPERATOR-C Attending Provider Active Start: September 28, 2024 End: September 28, 2024 Team Status: Inactive Member Role Status Dates Dr. Pascual Yan MD Primary Care Provider Acti ve Start: September 28, 2024 End: September 28, 2024 Alecia Soler GUM SCORING MACHINE OPERATOR, GUM SCORING MACHINE OPERATOR-C Attending Provider Active Start: September 28, 2024 End: September 28, 2024 Alecia Soler NP, GUM SCORING MACHINE OPERATOR-C Referring Provider Active Start: September 28, 2024 End: September 28, 2024 Team Status: Inactive Member Role Status Dates Dr. Pascual Yan MD Primary Care Provider Acti ve Start: October 17, 2024 End: October 17, 2024 Dr. Kavon Alexandra MD Attending Provider Active St art: October 17, 2024 End: October 17, 2024 Dr. Kavon Alexandra MD Referring Provider Active St art: October 17, 2024 End: October 17, 2024 Team Status: Inactive Member Role Status Dates Dr. Pascual Yan MD Primary Care Provider Acti ve Start: October 18, 2024 End: October 18, 2024 Dr. Pascual Yan MD Attending Provider Active Start: October 18, 2024 End: October 18, 2024 Dr. Pascual Yan MD Referring Provider Active Start: October 18, 2024 End: October 18, 2024 Team Status: Inactive Member Role Status Dates Dr. Pascual Yan MD Primary Care Provider Acti ve Start: October 23, 2024 End: October 23, 2024 Dr. Pascual Yan MD Attending Provider Active Start: October 23, 2024 End: October 23, 2024 Dr. Pascual Yan MD Referring Provider Active Start: October 23, 2024 End: October 23, 2024 Team Status: Inactive Member Role Status Dates Dr. Pascual Yan MD Primary Care Provider Acti ve Start: January 08, 2025 End: January 08, 2025 Dr. Pascual Yan MD Attending Provider Active Start: January 08, 2025 End: January 08, 2025 Dr. Pascual Yan MD Referring Provider Active Start: January 08, 2025 End: January 08, 2025 (unrecognized sect ion and content) No Status Records Found INFORMATION SOURCE (unrecogn ized section and content) DATE CREATED AUTHOR 09/21/2025 [facility] FOR RECORDS PERTAINING TO PATIENTS WHO ARE OR HAVE BEEN ENROLLED IN A CHEMICAL DEPENDENCY/SUBSTANCEABUSE PROGRAM, SOME INFORMATION MAY BE OMITTED. This clinical summary was aggregated from multiple sources. Caution should be exercised in using it in the provision of clinical care. This summary normalizes information from multiple sources, and as a consequence, information in this document may materially change the coding, format and clinical context of patient data. In addition, data may be omitted in some cases. CLINICAL DECISIONS SHOULD BE BASED ON THE PRIMARY CLINICAL RECORDS. [facility]. provides no warranty or guarantee of the accuracy or completeness of information in this document.
--- NOTE | 2025-10-04 07:08 | CT_ITS ---
PROCEDURE: BRAIN/HEAD WITHOUT CONTRAST 10/04/2025 REASON FOR EXAM: HEADACHE TECHNIQUE: Procedure Code: CTBR Modality: CT Procedure: BRAIN/HEAD WITHOUT CONTRAST Coronal and Sagittal reconstruction series were provided. One or more dose reduction techniques were used (e.g., Automated exposure control, adjustment of the mA and/or kV according to patient size, use of iterative reconstruction technique. FINDINGS: No acute intracranial hemorrhage. No midline shift. The ventricles are normal in size and configuration. No extra-axial fluid collection is identified. 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 No fracture. The calvarium is intact. Small mucous retention cyst within the right sphenoid sinus. The bilateral mastoid air cells are clear. CT/Brain/Head without Contrast IMPRESSION: No acute intracranial CT abnormality. Reading Location: [id number]
== END | disposition home or self-care (01) ==
PROVIDERS: PCP Family Medicine
DX: R51.9 Headache, unspecified (principal)
CPT/HCPCS: 70450